=== PATIENT | male | born 1960 | race African-American/Black ===

== ENCOUNTER 2017-09-21 19:56 | Inpatient (IN) | payer OTHER, MEDICAID ==
[~2017-09-21] VITALS: Ht 170.2 cm; Wt 49.4 kg
[2017-09-21 19:47] VITALS: BP 98/62
--- NOTE | 2017-09-21 20:00 | NUR ---
PT BIB RA TO ER BED 5, PT COMING FROM [facility]. PT STARTED ON ANITBIOTICS FOR A UTI AT [facility] TODAY, PARAMEDICS STATE PT BECAME MORE ALTERED. PT HAS A TRACH WITH MECH VENT, RT AT BEDSIDE TO MANAGE VENT. SETTINGS ARE RATE 14, TV - 400, PEEP - 5, FIO2 40%. PT HAS PICC LINE IN THE RIGHT ARM, BLOOD CULT X 2 AND BLOOD SAMPLE OBTAINED AND HANDED OVER TO LAB AT BEDSIDE. TECH AT BEDSIDE TO OBTAIN EKG. MD AT BEDSIDE FOR EVAL. PT IS ALTERED AND NONVERBAL. PT IS TACHY AT 134, RECTAL TEMP OF 100.1, SAT 94%, RESP 21. PT HAS F/C FROM [facility], ORDER TO REMOVE AND PLACE NEW SINGLETON.
--- NOTE | 2017-09-21 20:10 | NUR ---
OLD F/C DISCONTINUED. 16 FR F/C INSERTED USING SCHOOL BUS ATTENDANT, PER MD ORDERS. 600 ML URINE RETURN. URINE HAD ELIZABETH BLOOD AND WAS CLOUDY. URINE SPECIMAN SEND TO LAB.
[2017-09-21] MEDS ORDERED: CEFEPIME 1 GM VIAL ONE (20:29)
[2017-09-21] MEDS ORDERED: IV NS 0.9% 1,000 ML BAG IV ONE (20:30)
--- NOTE | 2017-09-21 20:30 | NUR ---
pt arrived in ER trached with #8 shiley bvm being performed showing no signs of respiratory distress noted. pt placed on previous vent setting that pt is on from facility. ac 14 400 40% +5, vent alarms set, plugged into red outlet and bvm at bedside. moderate amount of thick white secretion suctioned, pt tolerated procedure no adverse reaction noted Addendum: 09/21/17 at 2041 by HILTON KAPLAN RT Amended: Links added.
[2017-09-21 20:32] LABS: BASOPHILS % (AUTO) 0.3 % (0.0-2.0); EOSINOPHILS # (AUTO) 0.2 /CMM (0.0-0.7); EOSINOPHILS % (AUTO) 1.9 % (0.0-6.0); HEMATOCRIT 23 % (39-51); HEMOGLOBIN 7.6 g/dL (13.5-17.5); LYMPHOCYTES # (AUTO) 0.8 /CMM (0.8-4.8); LYMPHOCYTES % (AUTO) 7.6 % (20.0-44.0); MEAN CORPUSCULAR HEMOGLOBIN 29 PG (26.0-33.0); MEAN CORPUSCULAR HGB CONC 33 g/dl (31.0-36.0); MEAN CORPUSCULAR VOLUME 88 fL (80-96); MONOCYTES # (AUTO) 0.7 /CMM (0.1-1.30); MONOCYTES % (AUTO) 7.4 % (2.0-12.0); NEUTROPHILS # (AUTO) 8.2 /CMM (1.8-8.9); NEUTROPHILS % (AUTO) 82.8 % (43.0-81.0); PLATELET COUNT (AUTO) 334 /CMM (150-450); RDW COEFFICIENT OF VARIATION 15.6 (11.5-15.0); WHITE BLOOD COUNT (AUTO) 9.9 K/uL (4.3-11.0)
[2017-09-21 20:36] LABS: INR 1.05 (0.87-1.13); PROTHROMBIN TIME 10.9 SECS (9.5-12.7)
[2017-09-21 20:39] LABS: ALBUMIN 1.9 g/dL (3.4-5.0); BILIRUBIN,DIRECT 0.1 mg/dL (0.0-0.2); BILIRUBIN,TOTAL 0.4 mg/dL (0.2-1.0); CALCIUM, SERUM 9.5 mg/dL (8.5-10.1); CREATININE 2.4 mg/dL (0.6-1.3); POTASSIUM 5.8 mmol/L (3.5-5.1); TOTAL PROTEIN, SERUM 7.1 g/dL (6.4-8.2)
[2017-09-21 20:40] LABS: TROPONIN I 0.078 ng/mL (0.00-0.056)
[2017-09-21] MEDS: CEFEPIME 1 GM in IV D5W 50 ML IV SCH (20:40)
[2017-09-21 20:47] LABS: APPEARANCE,URINE TURBID (CLEAR); BILIRUBIN,URINE NEGATIVE (NEGATIVE); BLOOD, URINE 3+ Ery/uL (NEGATIVE); COLOR,URINE ORANGE (YELLOW); KETONES,URINE NEGATIVE (NEGATIVE); PROTEIN,URINE 4+ mg/dl (NEGATIVE); UGLUCOSE NEGATIVE (NEGATIVE)
[2017-09-21 20:48] LABS: LEUKOCYTE ESTERASE ,URINE 3+ (NEGATIVE); NITRITE, URINE NEGATIVE (NEGATIVE); UROBILINOGEN,URINE 0.2 EU/dL (0.2)
[2017-09-21 20:51] LABS: BACTERIA,URINE Moderate /HPF (None Seen); RBC,URINE 21-50 /HPF (0-2); SQUAMOUS EPITHELIAL CELL,UR Few /HPF (None Seen); WBC,URINE 21-50 /HPF (0-3)
--- NOTE | 2017-09-21 20:53 | NUR ---
XRAY AT BEDSIDE.
[2017-09-21 21:20] LABS: BAND % (MANUAL) 7 % (0.0-5.0); BASOPHILS % (MANUAL) 0 % (0.0-2.0); EOSINOPHILS % (MANUAL) 2 % (0-4); LYMPHOCYTES % (MANUAL) 9 % (16-48); MONOCYTES % (MANUAL) 4 % (0-11.0); NEUTROPHILS % (MANUAL) 78 (42-76)
[2017-09-21] MEDS ORDERED: SODIUM POLYSTYRENE SULFONATE 15 G/60 ML BOTTLE PO ONE (21:30)
[2017-09-21] MEDS ORDERED: FUROSEMIDE 40 MG/4 ML VIAL IV ONE (21:30)
[2017-09-21] MEDS ORDERED: DEXTROSE 50%-WATER 50 ML DISP.SYRIN IV ONE (21:30)
[2017-09-21] MEDS ORDERED: INSULIN REGULAR, HUMAN 100 UNIT/ML 10 ML VIAL IV ONE (21:30)
[2017-09-21] MEDS ORDERED: DEXTROSE 50%-WATER 50 ML DISP.SYRIN ONE (21:57)
[2017-09-21] MEDS ORDERED: SODIUM POLYSTYRENE SULFONATE 15 G/60 ML BOTTLE ONE (21:57)
[2017-09-21] MEDS ORDERED: INSULIN REGULAR, HUMAN 100 UNIT/ML 10 ML VIAL ONE (21:57)
[2017-09-21] MEDS ORDERED: FUROSEMIDE 20 MG/2 ML VIAL ONE (21:57)
--- NOTE | 2017-09-21 22:30 | NUR ---
PT TBA TO TELE BED 311 BED 1, REPORT GIVEN TO KUSH FOR OPAL.
[2017-09-21] MEDS ORDERED: BISA-79 PR (22:48)
[2017-09-21] MEDS ORDERED: HYDR-552 PO (22:48)
[2017-09-21] MEDS ORDERED: FAMO20TA8 GT (22:48)
[2017-09-21] MEDS ORDERED: ASCO500C16 GT (22:48)
[2017-09-21] MEDS ORDERED: ONDA4TAB5 GT (22:48)
[2017-09-21] MEDS ORDERED: METH-406 GT (22:48)
[2017-09-21] MEDS ORDERED: GABA-534 GT (22:48)
[2017-09-21] MEDS ORDERED: LACT10SO PO (22:48)
[2017-09-21] MEDS ORDERED: POTA10CA43 GT (22:48)
[2017-09-21] MEDS ORDERED: MAGN400T6 GT (22:48)
[2017-09-21] MEDS ORDERED: LORA1TAB GT (22:48)
[2017-09-21] MEDS ORDERED: FURO20TA4 GT (22:48)
[2017-09-21] MEDS ORDERED: DOCU50LI GT (22:48)
[2017-09-21] MEDS ORDERED: OXYC5TAB3 GT (22:48)
[2017-09-21] MEDS ORDERED: QUET300T2 GT (22:48)
[2017-09-21] MEDS ORDERED: NOREPINEPHRINE 4 MG/4 ML AMPUL IV ONE (23:29)
[2017-09-21] MEDS ORDERED: Calcium Gluconate 1GM/10ML 4.65 MEQ in IV D5W 50 ML IV ONE (23:30)
[2017-09-21] MEDS: NOREPINEPHRINE 8 MG in IV D5W 500 ML IV PRN (23:37)
--- NOTE | 2017-09-21 23:46 | NUR ---
CALLED TO UPGRADE TO ICU
[2017-09-21] MEDS ORDERED: Calcium Gluconate 0.465 MEQ/ML VIAL IV ONE (23:48)
[2017-09-22] VITALS (68 sets, daily range): BP systolic 77–160; BP diastolic 49–102
[2017-09-22] MEDS ORDERED: LACTULOSE 10 G/15 ML UDC (PYXIS) GT ONE
--- NOTE | 2017-09-22 00:05 | NUR ---
CONTINUING TO MONITOR PT CLOSELY. VSS.
--- NOTE | 2017-09-22 00:14 | NUR ---
ICU 259
[2017-09-22] MEDS ORDERED: MEROPENEM 1 G in IV NS 0.9% 100 ML IV SCH ×2 (00:30→10:00)
[2017-09-22] MEDS ORDERED: IV NS 0.9% 1,000 ML IV PRN (00:30)
--- NOTE | 2017-09-22 00:52 | NUR ---
PT TO ICU 259, REPORT GIVEN TO DEVORAH CARREON FOR OPAL.
--- NOTE | 2017-09-22 01:20 | NUR ---
PT TRANS TO ICU 259 VIA STRETCHER WITH RN AND RT PER ACLS PROTOCOL.
[2017-09-22] MEDS ORDERED: NOREPINEPHRINE 4 MG/4 ML AMPUL IV ONE (01:39)
[2017-09-22] MEDS: NOREPINEPHRINE 8 MG in IV D5W 500 ML IV PRN (01:59)
[2017-09-22] MEDS ORDERED: MEROPENEM 1 G VIAL IV ONE (02:03)
[2017-09-22] MEDS ORDERED: LACTULOSE 10 G/15 ML UDC (PYXIS) ONE (02:05)
[2017-09-22] MEDS: IV NS 0.9% 1,000 ML IV PRN ×3 (02:16→23:30)
[2017-09-22] MEDS ORDERED: oxyCODONE IR immediate release 5 MG CAPSULE ONE (02:31)
[2017-09-22] MEDS: oxyCODONE IR immediate release 5 MG CAPSULE PO PRN ×4 (02:33→22:37)
--- NOTE | 2017-09-22 03:17 | NUR ---
RN:ICU: PT RECEIVED FROM ER FOR SEPSIS SECONDARY TO UTI AND HYPOTENSION. PT RECEIVED WITH COPIOUS AMOUNTS OF BLOODY URINE, ORDERS TO PERFORM CONTINUOUS BLADDER IRRIGATION AND CHANGE CURRENT F/C TO THREE WAY CATHETER. PT ALERT AND ABLE TO MOUTH WORDS. PT ON VENT VIA TRACH, TOLERATING CURRENT SETTINGS. PT ANXIOUS AND RESTLESS, COMPLAINING OF EXTREME GENERALIZED PAIN. PT REPORTS HAVING INCREASED PAIN EVEN FOLLOWING ADMINISTRATION OF OXY IR. PT DOES APPEAR TO BE IN LESS PAIN FOLLOWING PAIN MEDICATION ADMIN. ACCIDENTALLY CLICKED REJECT ON EMAR FOR OVERRIDE STOCK MED FOR OXY IR. MEDICATION GIVEN. PT S/P 1 LITER NS BOLUS AND NOW RECEIVING NS AT 100ML/HR. PT BP REMAINS LABILE AND REQUIRES LOW DOSE OF LEVOPHED GTT ON AND OFF. WILL TITRATE PER PROTOCOL. PT HAS MULTIPLE SKIN ISSUES, SEE WOUND PHOTOS. WOUND CARE CONSULT ORDERED. PT RECEIVED WITH JENNIE PICC LINE WHICH WAS PLACED HELICOPTER PILOT. CENTRAL LINE DRESSING CHANGE PERFORMED PER PROTOCOL. ALL ORDERS CARRIED OUT. ASPIRATION PRECAUTIONS AND FALL PRECAUTIONS IN PLACE. VSS. WILL CONTINUE TO MONITOR CLOSELY.
[2017-09-22] MEDS ORDERED: CEFEPIME 1 GM VIAL ONE (04:55)
[2017-09-22] MEDS: CEFEPIME 1 GM in IV D5W 50 ML IV SCH (04:59)
--- NOTE | 2017-09-22 06:09 | NUR ---
RN:ICU: PT TOLERATING BLADDER IRRIGATION. BP REMAINS BORDERLINE IN 90'S. PT RESTING IN BED COMFORTABLY ON VENT, WITHOUT DISCOMFORT OR DISTRESS. WILL ENDORSE CARE TO ONCOMING SHIFT.
[2017-09-22] MEDS ORDERED: NOREPINEPHRINE 8 MG in IV D5W 500 ML IV PRN (07:00)
--- NOTE | 2017-09-22 07:09 | NUR ---
RN:ICU: ENDORSED CARE TO [place]. SPOKE WITH JONY FROM PHARMACY, MUST REORDER LEVOPHED GTT AND MAXIPINE. PER DR SILVA'S PROGRESS NOTES DNP WOULD LIKE TO CONTINUE THESE MEDICATIONS. ENDORSED TO ONCOMING SHIFT.
--- NOTE | 2017-09-22 07:41 | NUR ---
PT RECEIVED IN ICU TRACHED ON MECHANICAL VENT W/ SETTING PER MD. VENT IN RED OUTLET, AMBUBAG AT BEDSIDE, VENT ALARMS CHECKED AND AUDIBLE. PT SX'ED AND LAVAGED PRN TO MOD AMOUNTS OF THICK PALE YELLOW SECRETIONS. BREATH SOUNDS EQUAL, CLEAR/DIMINISHED, TRACH TUBE CLEAN AND SECURE. PLAN IS TO CONTINUE CARE W/ CURRENT MD ORDERS AND MONITOR FOR CHANGES. Addendum: 09/22/17 at 0811 by ALEXX SEALS RT Amended: Links added.
[2017-09-22] MEDS: VANCOMYCIN 0.75 GM in IV D5W 250 ML IV SCH (07:46)
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
[2017-09-22] MEDS: QUETIAPINE FUMARATE 100 MG TABLET GT SCH ×2 (09:03→16:28)
[2017-09-22] MEDS: DOCUSATE SODIUM LIQ 100 MG/10 ML UDC GT SCH ×2 (09:03→16:27)
[2017-09-22] MEDS: MAGNESIUM OXIDE 400 MG TABLET GT SCH (09:03)
[2017-09-22] MEDS: FUROSEMIDE 20 MG TABLET GT SCH ×2 (09:03→20:17)
[2017-09-22] MEDS: GABAPENTIN 300 MG CAPSULE GT SCH (09:03)
[2017-09-22] MEDS: FAMOTIDINE (20 MG) 20 MG TABLET GT SCH (09:04)
[2017-09-22] MEDS ORDERED: FEE PK DOSING 1 MIN EA MC ONE (10:18)
[2017-09-22] MEDS: MEROPENEM 1 G in IV NS 0.9% 100 ML IV SCH ×2 (12:43→23:35)
[2017-09-22] MEDS ORDERED: CEFEPIME 1 GM in IV D5W 50 ML IV SCH (13:00)
[2017-09-22] MEDS: LORAZEPAM 1 MG TABLET GT PRN (13:10)
[2017-09-22] MEDS: ACETAMINOPHEN 325 MG TABLET PO PRN (13:11)
[2017-09-22 13:20] LABS: IRON, SERUM 17 ug/dl (50-175); TOTAL IRON BINDING CAPACITY 102 ug/dl (250-450)
--- NOTE | 2017-09-22 15:00 | NUR ---
Wound care done. Patient was placed on special air mattress with complete linen change.
--- NOTE | 2017-09-22 18:03 | NUR ---
Patient sleeping after oxycodone.
--- NOTE | 2017-09-22 18:43 | NUR ---
Patient still sleeping. Levophed is still off. NS infusing at 100 ml/hour. Continuous bladder irrigation still on. Urine is pink in color with some small clots noted at times. Vital signs stable.
--- NOTE | 2017-09-22 19:30 | NUR ---
RN INITIAL NOTES RECEIVED PATIENT IN BED, ASLEEP, ALERT AND ORIENTED X 1-2 AT BASELINE, MOUTHS WORDS, RESTLESS AT THIS TIME. BREATHING EVEN AND NONLABORED, TOLERATING VENT SETTINGS WELL. NOTED WITH [address] WAY SINGLETON WITH CONTINUOUS BLADDER IRRIGATION, NOTED WITH CLEAR YELLOW/PINK URINE OUTPUT WITH SEDIMENTS AND OCCASIONAL CLOTS, WILL TITRATE IRRIGATION NEEDED. JENNIE PICC PATENT AND INTACT, FREE FROM ANY S/S OF INFILTRATION OR PHLEBITIS. CALL LIGHT WITHIN REACH, BED IN LOWEST AND LOCKED POSITION. WILL CONTINUE TO CLOSELY MONITOR
[2017-09-22] MEDS ORDERED: CEFEPIME 2 GM in IV D5W 100 ML IV SCH (20:00)
--- NOTE | 2017-09-22 23:15 | NUR ---
RN NOTES PATIENT NOTED TO BE SLEEPING AFTER OXY IR ADMINISTERED. REMAINS WITH CONTINUOUS BLADDER IRRIGATION AT THIS TIME, NOTED WITH YELLOW/PINK OUTPUT. WILL CONTINUE TO CLOSELY MONITOR THE PATIENT
[2017-09-23] VITALS (54 sets, daily range): BP systolic 78–184; BP diastolic 41–120
[2017-09-23] MEDS: ACETAMINOPHEN 325 MG TABLET PO PRN (02:22)
[2017-09-23] MEDS: LORAZEPAM 1 MG TABLET GT PRN ×2 (02:22→08:50)
[2017-09-23 05:00] LABS: EOSINOPHILS # (AUTO) 0.3 /CMM (0.0-0.7); EOSINOPHILS % (AUTO) 2.8 % (0.0-6.0); HEMATOCRIT 22 % (39-51); HEMOGLOBIN 7.4 g/dL (13.5-17.5); LYMPHOCYTES # (AUTO) 0.9 /CMM (0.8-4.8); LYMPHOCYTES % (AUTO) 7.4 % (20.0-44.0); MEAN CORPUSCULAR HEMOGLOBIN 30 PG (26.0-33.0); MEAN CORPUSCULAR HGB CONC 33 g/dl (31.0-36.0); MEAN CORPUSCULAR VOLUME 89 fL (80-96); MONOCYTES # (AUTO) 0.6 /CMM (0.1-1.30); MONOCYTES % (AUTO) 5.5 % (2.0-12.0); NEUTROPHILS # (AUTO) 9.8 /CMM (1.8-8.9); NEUTROPHILS % (AUTO) 84.3 % (43.0-81.0); PLATELET COUNT (AUTO) 237 /CMM (150-450); RDW COEFFICIENT OF VARIATION 16.7 (11.5-15.0); RED BLOOD CELL COUNT(AUTO) 2.48 MIL/uL (4.5-6.0); WHITE BLOOD COUNT (AUTO) 11.6 K/uL (4.3-11.0)
[2017-09-23 05:17] LABS: CREATININE 1.5 mg/dL (0.6-1.3); PHOSPHORUS 5.4 mg/dL (2.5-4.9); POTASSIUM 2.9 mmol/L (3.5-5.1)
[2017-09-23] MEDS ORDERED: POTASSIUM CL. PREMIX PERIPHER. 50 ML ONE (06:02)
[2017-09-23] MEDS: POTASSIUM CL. PREMIX PERIPHER. 50 ML IV SCH ×2 (06:12→07:35)
--- NOTE | 2017-09-23 06:30 | NUR ---
RN NOTES PATIENT'S POTASSIUM LEVEL = 2.9. DR DIVINA SILVA MADE AWARE WITH ORDERS TO REPLACE WITH 20 MEQ KCL IV OVER 2 HOURS. ORDER PLACED, WILL CARRY OUT ALL NEW ORDERS
[2017-09-23] MEDS ORDERED: POTASSIUM CL. PREMIX PERIPHER. 50 ML IV SCH (07:00)
[2017-09-23] MEDS: oxyCODONE IR immediate release 5 MG CAPSULE PO PRN (07:43)
[2017-09-23] MEDS: VANCOMYCIN 0.75 GM in IV D5W 250 ML IV SCH (07:43)
[2017-09-23] MEDS: FUROSEMIDE 20 MG TABLET GT SCH ×2 (08:51→20:59)
[2017-09-23] MEDS: QUETIAPINE FUMARATE 100 MG TABLET GT SCH ×2 (08:51→16:44)
[2017-09-23] MEDS: GABAPENTIN 300 MG CAPSULE GT SCH (08:51)
[2017-09-23] MEDS: MAGNESIUM OXIDE 400 MG TABLET GT SCH (08:51)
[2017-09-23] MEDS: DOCUSATE SODIUM LIQ 100 MG/10 ML UDC GT SCH ×2 (08:51→16:44)
[2017-09-23] MEDS: FAMOTIDINE (20 MG) 20 MG TABLET GT SCH (08:51)
[2017-09-23] MEDS: MEROPENEM 1 G in IV NS 0.9% 100 ML IV SCH ×2 (11:30→23:27)
[2017-09-23] MEDS: IV NS 0.9% 1,000 ML IV PRN (12:36)
[2017-09-23] MEDS: SOD FERRIC GLUC 125 MG in IV NS 0.9% 100 ML IV SCH (13:54)
--- NOTE | 2017-09-23 14:27 | NUR ---
ICU NOTE RECEIVED REPORT FROM DEVORAH DICKEY, PT WAS RECEIVED IN BED AWAKE, A/O 2, ABLE TO MAKE NEEDS KNOWN, PT IS A QUADRIPLEGIC, PT IS ON BEDSIDE MONITOR SHOWING SR @ 95BPM, NO C/O CHEST PAIN OR DISCOMFORT NOTED AT THIS TIME, [facility] AC 14 TV 400 FIO2 30% PEEP 5, SATING WELL, NO S/S OF RESP.DISTRESS OR SOB NOTED AT THIS TIME, PT HAS GTUBE, CLAMPED, FLUSHING WELL, PT HAS NO C/O OF ABDOMINAL PAIN AT THIS TIME, PT HAS F/C ATTACHED TO CONTINUOS BLADDER IRRIGATION, PT HAS JENNIE PICC, C/D/I/PATENT,FLUSHING WELL, RUNNING NS @ 100ML/HR, NO S/S OF INFECTION/ INFILTRATION NOTED AT THIS TIME, PT IS NOTED WITH MULTIPLE SKIN ISSUES, ALL SAFETY MEASURES IN PLACE AT ALL TIMES, CALL LIGHT WITHIN EASY REACH, WILL MONITOR PT CLOSELY FOR CHANGES
--- NOTE | 2017-09-23 14:32 | NUR ---
ICU NOTE RECEIVED CALL FROM LEXIE, URINE CULTURE PROTEUS SPECIES, ENT. STACEY PRATHERO ARNIE, DR. CALVERT NOTIFIED. NO NEW ORDERS AT THIS TIME.
--- NOTE | 2017-09-23 14:49 | NUR ---
ICU NOTE RECEIVED ORDER TO D/C VANCO START ZYVOX 600MG IV Q12H, ORDER WAS ACK AND WILL BE CARRIED OUT
--- NOTE | 2017-09-23 16:00 | NUR ---
ICU NOTE STARTED GTUBE FEEDING, FIBERSOURCE @ 10ML/HR, GOAL IS 50ML/HR, PT IS TOLERATING WELL, NO RESIDUALS AT THIS TIME
--- NOTE | 2017-09-23 16:35 | NUR ---
ICU NOTE LAB CALLED POSITIVE MRSA POSITIVE, NOTIFIED, NEW ORDERS ACK AND CARRIED OUT
[2017-09-23] MEDS: FIBERSOURCE HN 1,000 ML BOTTLE GT PRN (16:45)
[2017-09-23] MEDS: Z GUARD REMEDY 2 OZ OINT TP PRN (16:45)
[2017-09-23] MEDS: LINEZOLID RTU BAG 600 MG in PREMIX 1 EA IV SCH (16:45)
[2017-09-23] MEDS: MUPIROCIN OINT 2% 22 GM TUBE SCH ×2 (17:00→21:00)
--- NOTE | 2017-09-23 17:30 | NUR ---
ICU NOTE PT'S SISTER CALLED, UPDATED HER, ANSWERED ALL QUESTIONS AND CONCERNS
--- NOTE | 2017-09-23 22:54 | NUR ---
RN:ICU: PT RECEIVED IN BED ON VENT VIA TRACH. PT BP 90'S. PT RESTLESS AND BECOMES EASILY AGGITATED. NO APPARENT DISTRESS NOTED. PER DAYSHIFT ORDERS TO D/C CBI. URINE CLEAR YELLOW. INCREASED FEEDING PER PROTOCOL. TURNED Q2H. WILL CONTINUE TO MONITOR CLOSELY.
[2017-09-24] VITALS (24 sets, daily range): BP systolic 104–181; BP diastolic 55–146
[2017-09-24] MEDS ORDERED: VANCOMYCIN 1 GM in IV D5W 250 ML IV SCH (02:00)
[2017-09-24] MEDS: LINEZOLID RTU BAG 600 MG in PREMIX 1 EA IV SCH ×2 (02:34→14:17)
[2017-09-24] MEDS: oxyCODONE IR immediate release 5 MG CAPSULE PO PRN ×3 (02:34→20:30)
[2017-09-24] MEDS: IV NS 0.9% 1,000 ML IV PRN ×2 (02:35→20:29)
[2017-09-24 04:41] LABS: BASOPHILS % (AUTO) 0.2 % (0.0-2.0); EOSINOPHILS # (AUTO) 0.6 /CMM (0.0-0.7); EOSINOPHILS % (AUTO) 5.5 % (0.0-6.0); HEMATOCRIT 23 % (39-51); HEMOGLOBIN 7.7 g/dL (13.5-17.5); LYMPHOCYTES # (AUTO) 0.9 /CMM (0.8-4.8); MEAN CORPUSCULAR HEMOGLOBIN 30 PG (26.0-33.0); MEAN CORPUSCULAR HGB CONC 34 g/dl (31.0-36.0); MEAN CORPUSCULAR VOLUME 89 fL (80-96); MONOCYTES # (AUTO) 0.6 /CMM (0.1-1.30); MONOCYTES % (AUTO) 5.7 % (2.0-12.0); NEUTROPHILS # (AUTO) 8.1 /CMM (1.8-8.9); NEUTROPHILS % (AUTO) 79.6 % (43.0-81.0); PLATELET COUNT (AUTO) 259 /CMM (150-450); RDW COEFFICIENT OF VARIATION 16.6 (11.5-15.0); RED BLOOD CELL COUNT(AUTO) 2.58 MIL/uL (4.5-6.0); WHITE BLOOD COUNT (AUTO) 10.2 K/uL (4.3-11.0)
[2017-09-24 04:58] LABS: CALCIUM, SERUM 8.6 mg/dL (8.5-10.1); CREATININE 1.3 mg/dL (0.6-1.3); MAGNESIUM 1.9 mg/dL (1.8-2.4); PHOSPHORUS 5.7 mg/dL (2.5-4.9); POTASSIUM 2.9 mmol/L (3.5-5.1)
[2017-09-24] MEDS ORDERED: POTASSIUM CL. PREMIX PERIPHER. 50 ML ONE (06:15)
[2017-09-24] MEDS: POTASSIUM CL. PREMIX PERIPHER. 50 ML IV SCH ×4 (06:57→09:58)
--- NOTE | 2017-09-24 07:00 | NUR ---
RN INITIAL NOTES RECEIVED PT AWAKE, A/OX1. ON [facility] VENT WITH FF SETTINGS:AC14, TV400, FIO2 30%, PEEP+5. TRACH IN PLACE. NO RESPIRATORY DISTRESS NOTED. NO SOB NOTED. DENIES ANY PAIN AT THIS TIME. HOB ELEVATED. JENNIE PICC IN PLACE. NS AT 100ML/HR INFUSING. GT IN PLACE. TOLERATING GTF WELL. NO RESIDUAL NOTED. FC IN PLACE. NO HEMATURIA NOTED. BLE ELEVATED. PT COMFORTABLE. WILL MONITOR.
[2017-09-24] MEDS: MAGNESIUM OXIDE 400 MG TABLET GT SCH (08:05)
[2017-09-24] MEDS: FUROSEMIDE 20 MG TABLET GT SCH ×2 (08:05→20:30)
[2017-09-24] MEDS: DOCUSATE SODIUM LIQ 100 MG/10 ML UDC GT SCH ×2 (08:05→16:58)
[2017-09-24] MEDS: GABAPENTIN 300 MG CAPSULE GT SCH (08:05)
[2017-09-24] MEDS: FAMOTIDINE (20 MG) 20 MG TABLET GT SCH (08:05)
[2017-09-24] MEDS: QUETIAPINE FUMARATE 100 MG TABLET GT SCH ×2 (08:05→16:58)
[2017-09-24] MEDS: MUPIROCIN OINT 2% 22 GM TUBE SCH ×2 (08:16→20:32)
--- NOTE | 2017-09-24 09:15 | NUR ---
RN NOTES SEEN AND EXAMINED BY DR. NEHAL CHRISTIE. AWARE OF CURRENT LAB VALUES: WBC 10.2, HGB 7.7, HCT 23, PLATELET 259. SODIUM 141, POTASSIUM 2.9, REPLACING WITH KCL 40MEQ TOTAL. MG 1.9, PHOS 5.7. SBP ON 110S, HR 100S. PER MD, PT OK TO BE DOWNGRADED. WILL MONITOR.
--- NOTE | 2017-09-24 10:40 | NUR ---
RN NOTES SEEN AND EXAMINED BY ROMY FOR WOUND CONSULT. SKIN ISSUES ASSESSED WITH TX ORDERS NOTED AND CARRIED OUT. PT ON KCI. WILL REPOSITION Q2. WILL KEEP BLE ELEVATED.
--- NOTE | 2017-09-24 10:40 | NUR ---
WOUND CARE CONSULT PATIENT SEEN AND SKIN INTEGRITY ASSESSMENT DONE. PLEASE SEE BOILER CONTROL TECHNICIAN ASSESSMENT IN PCS FOR TODAY ALONG WITH ALL RECOMMENDATIONS. ALL TREATMENT PLANS DISCUSSED WITH MD AND MD IN AGREEMENT. RECOMMEND SURGICAL CONSULT FOR POSSIBLE DEBRIDEMENT PATIENT CONDITION PERMITS. PATIENT WITH CURRENT LOTUS AT 12, PATIENT ON 1ST STEP LOW AIRLOSS MATTRESS FOR TREATMENT. RECOMMEND CONTINUE TURNING SCHED Q 2 HOURS PATIENT CONDITION PERMITS, CONTINUE BILATERAL HEEL FLOATING. RECOMMEND CONTINUED USE OF Z GUARD FOR SKIN AND MOISTURE MANAGEMENT. ALL SKIN MANAGEMENT DISCUSSED WITH NURSING AT THE BEDSIDE. ALL SKIN MANAGEMENT AND PREVENTION MEASURES ARE NOTED TO BE IN PLACE AT THIS TIME. MD IN AGREEMENT WITH PLAN OF CARE. Addendum: 09/24/17 at 1045 by ROMY LOYA WNDNU Amended: Links added.
[2017-09-24] MEDS: NEOMY SULF/BACITRAC ZN/POLY 15 GM TUBE TP SCH (11:00)
[2017-09-24] MEDS: HYDROGEL DRESSING 90 GM TUBE TP SCH (11:00)
[2017-09-24] MEDS ORDERED: HYDROGEL DRESSING 90 GM TUBE TP PRN (11:00)
--- NOTE | 2017-09-24 11:20 | NUR ---
RN NOTES PT TRANSFERRED TO ROOM 317. PT AWAKE, A/OX1. ON VENT, TRACH IN PLACE. AIRWAY PATENT. NO SOB NOTED. HOB ELEVATED. PT DENIES ANY PAIN. GT IN PLACE. ON GTF. PICC IN ON JENNIE. IVF INFUSING. FC IN PLACE. NO HEMATURIA NOTED. BLE ELEVATED. PT PLACED COMFORTABLY IN ROOM. BEDSIDE REPORT GIVEN TO AUNDREA FAIRCHILD.
--- NOTE | 2017-09-24 11:30 | NUR ---
RN OPENING NOTES RECEIVED PATIENT AWAKE,RESPONSIVE, MOUTH WORDS, ON VENT, TRACH IN PLACE. AIRWAY PATENT. NO ACUTE DISTRESS, NO SOB NOTED. NO S/S OF PAIN OR DISCOMFORT. HOB ELEVATED, GT IN PLACE, ON GTF. PICC LINE ON JENNIE, IVF INFUSING. FC IN PLACE. NO HEMATURIA NOTED. BLE ELEVATED. KEPT PATIENT SAFE AND COMFORTABLE. BED IN LOCKED, LOW POSITION, SIDERAILS UPX2, CALL LIGHT IN REACH. WILL CONTINUE TO MONITOR ACCORDINGLY.
[2017-09-24] MEDS: MEROPENEM 1 G in IV NS 0.9% 100 ML IV SCH ×2 (12:33→23:20)
--- NOTE | 2017-09-24 13:00 | NUR ---
RN NOTES DR PRIEST ON BEDSIDE. WILL DO EGD TOMORROW, NPO AFTER MIDNIGHT TODAY.
[2017-09-24] MEDS: SOD FERRIC GLUC 125 MG in IV NS 0.9% 100 ML IV SCH (16:18)
--- NOTE | 2017-09-24 19:26 | NUR ---
RN CLOSING NOTES PATIENT IN BED RESTING, RESPONSIVE. NO ACUTE DISTRESS, NO SOB NOTED. IV SITE INTACT AND PATENT. GTUBE IN PLACE. SINGLETON IN PLACE, CLEAR YELLOW URINE DRAINING. ALL NEEDS ATTENDED AND PROVIDED. KEPT PATIENT COMFORTABLE. TURN AND REPOSITION EVERY 2 HRS. SUCTIONED TRACH NEEDED, TOLERATED WELL. BED IN LOW, LOCKED POSITION, HOB ELEVATED, SIDERAILS UP X2, CALL LIGHT IN REACH. ENDORSED TO NIGHT RN FOR OPAL.
[2017-09-24] MEDS: ZOLPIDEM TARTRATE 5 MG TABLET GT PRN (23:21)
[2017-09-25] VITALS (21 sets, daily range): BP systolic 117–176; BP diastolic 86–117
[2017-09-25] MEDS: LORAZEPAM 1 MG TABLET GT PRN ×2 (01:19→09:16)
[2017-09-25] MEDS: LINEZOLID RTU BAG 600 MG in PREMIX 1 EA IV SCH (02:47)
[2017-09-25] MEDS ORDERED: METOPROLOL TARTRATE INJ 5 MG/5 ML AMPUL IVP ONE (04:30)
--- NOTE | 2017-09-25 06:00 | NUR ---
RN NOTES No significant change in condition, no change in mental status, patient is alert and bale to make needs known by mouthing words. No acute respiratory distress noted. With episodes of elevated BP, Alyse Francisco made aware and ordered Metoprolol IVP to be given slowly, order noted and carried out. Monitored BP and HR closely. Rechecked VS, BP and HR within normal limits. NO SOB noted. Patient c/o pain on the back during shift, pain meds given as ordered and re-assessed pain level. Gtube feeding held at 0000. Pt kept NPO. Informed patient of the procedure today. Verbalized understanding. Consent signed via telephone consent. pre-op checklist done. All due meds given as ordered, Gtube flushed as ordered, no gastric residual noted. All needs attended. Wound dressing dry and intact, no bleeding noted. Good perineal care rendered. Turned and repositioned as scheduled. All needs attended. Will continue to monitor.
[2017-09-25 07:32] LABS: BASOPHILS % (AUTO) 0.2 % (0.0-2.0); EOSINOPHILS # (AUTO) 0.7 /CMM (0.0-0.7); EOSINOPHILS % (AUTO) 8.2 % (0.0-6.0); HEMATOCRIT 24 % (39-51); HEMOGLOBIN 7.9 g/dL (13.5-17.5); LYMPHOCYTES # (AUTO) 1.3 /CMM (0.8-4.8); LYMPHOCYTES % (AUTO) 14.7 % (20.0-44.0); MEAN CORPUSCULAR HEMOGLOBIN 30 PG (26.0-33.0); MEAN CORPUSCULAR HGB CONC 33 g/dl (31.0-36.0); MEAN CORPUSCULAR VOLUME 89 fL (80-96); MONOCYTES # (AUTO) 0.5 /CMM (0.1-1.30); MONOCYTES % (AUTO) 6.1 % (2.0-12.0); NEUTROPHILS # (AUTO) 6.1 /CMM (1.8-8.9); NEUTROPHILS % (AUTO) 70.8 % (43.0-81.0); PLATELET COUNT (AUTO) 242 /CMM (150-450); RDW COEFFICIENT OF VARIATION 16.5 (11.5-15.0); RED BLOOD CELL COUNT(AUTO) 2.66 MIL/uL (4.5-6.0); WHITE BLOOD COUNT (AUTO) 8.6 K/uL (4.3-11.0)
[2017-09-25 07:46] LABS: CALCIUM, SERUM 8.5 mg/dL (8.5-10.1); CREATININE 0.8 mg/dL (0.6-1.3); POTASSIUM 3.1 mmol/L (3.5-5.1)
--- NOTE | 2017-09-25 08:00 | NUR ---
SHEET METAL WORKER SUPERVISOR NOTES PATIENT IN BED WITH OR PREPARING FOR ENDOSCOPY AT BEDSIDE. PATIENT IN STABLE CONDITION. PICC LINE ON RIGHT UPPER ARM. SINGLETON INTACT PATENT. PATIENT VENT DEPENDENT. VENT SETTINGS NOTED. WILL CONTINUE TO MONITOR.
[2017-09-25] MEDS: QUETIAPINE FUMARATE 100 MG TABLET GT SCH ×2 (09:16→17:05)
[2017-09-25] MEDS: GABAPENTIN 300 MG CAPSULE GT SCH (09:16)
[2017-09-25] MEDS: DOCUSATE SODIUM LIQ 100 MG/10 ML UDC GT SCH ×2 (09:16→17:04)
[2017-09-25] MEDS: MAGNESIUM OXIDE 400 MG TABLET GT SCH (09:17)
[2017-09-25] MEDS: FUROSEMIDE 20 MG TABLET GT SCH ×2 (09:17→22:09)
[2017-09-25] MEDS: FAMOTIDINE (20 MG) 20 MG TABLET GT SCH (09:17)
[2017-09-25] MEDS: MUPIROCIN OINT 2% 22 GM TUBE SCH ×2 (09:18→22:09)
[2017-09-25] MEDS: NEOMY SULF/BACITRAC ZN/POLY 15 GM TUBE TP SCH (09:18)
[2017-09-25] MEDS: HYDROGEL DRESSING 90 GM TUBE TP SCH (09:19)
--- NOTE | 2017-09-25 09:30 | NUR ---
PARK ATTENDANT NOTES PATIENT S/P ENDOSCOPE AT BEDSIDE IN STABLE CONDITION WILL CONTINUE TO MONITOR.
[2017-09-25] MEDS ORDERED: PEG 3350/NA SULF,BICARB,CL/KCL 4,000 ML BOTTLE PO ONE (11:00)
[2017-09-25] MEDS: CLONIDINE HCL 0.1 MG TABLET PO PRN (11:09)
[2017-09-25] MEDS: MEROPENEM 1 G in IV NS 0.9% 100 ML IV SCH ×2 (11:10→23:14)
[2017-09-25] MEDS: IV NS 0.9% 1,000 ML IV PRN ×2 (11:10→23:12)
--- NOTE | 2017-09-25 11:30 | NUR ---
OFFSET PROOF PRESS OPERATOR NOTES PATIENT NOTED WITH BP OR 169/110 DR. MARY AT BEDSIDE INFORMED OR PATIENTS BLOOD PRESSURE OBTAINED ORDERS FOR CLONIDIN 0.1MG EVERY 6 HOURS NEEDED FOR BP OVER 160. NOTED AND CARRIED OUT. WILL RECHECK AFTER 30 MIN.
--- NOTE | 2017-09-25 12:00 | NUR ---
CHEESE GRADER NOTES BLOOD PRESSURE CHECKED NOTED 156/96 PULSE OF 71, RESPIRATION OF 18 AND O2 SAT. AT 100%. WILL CONTINUE TO MONITOR.
[2017-09-25] MEDS: LINEZOLID 600 MG TABLET PO SCH ×2 (13:06→23:14)
[2017-09-25] MEDS: POTASSIUM CHLORIDE 20 MEQ TAB.PRT.SR PO SCH ×2 (13:06→15:03)
[2017-09-25] MEDS: SOD FERRIC GLUC 125 MG in IV NS 0.9% 100 ML IV SCH (15:08)
[2017-09-25] MEDS: oxyCODONE IR immediate release 5 MG CAPSULE PO PRN (15:24)
--- NOTE | 2017-09-25 16:00 | NUR ---
telephone clerk notes noted patients vs as follows 165/117 pulse 83 respiration 16 temp 98.9 and pulse ox 100 DR. Freeman made aware orderers to administer metoprolol noted and carried out.
[2017-09-25] MEDS: METOPROLOL TARTRATE 25 MG TABLET PO SCH (17:07)
--- NOTE | 2017-09-25 18:00 | NUR ---
RN NOTES MG CITRATE NOT GIVEN AT THIS TIME, TO BE GIVEN TOMORROW AT 5AM IF PT BM IS NOT CLEAR YET FOR COLONOSCOPY. WILL CONTINUE TO MONITOR PT.
--- NOTE | 2017-09-25 18:01 | NUR ---
DIRECTOR PUBLIC SERVICE NOTES BP RECHECKED 138/96 PULSE 78 PATIENT IN NO DISTRESS WILL CONTINUE TO MONITOR.
[2017-09-25] MEDS ORDERED: MAGNESIUM CITRATE 296 ML BOTTLE PO ONE (19:00)
--- NOTE | 2017-09-25 19:01 | NUR ---
FLUE BLOWER NOTES PATIENT IN BED RESTING NO SOB OR ACUTE DISTRESS NOTED. PATIENTS DISCHARGE HELD DUE TO PATIENT HAVING COLONOSCOPY TOMORROW AM. DR. CALVERT MAD AWARE ORDERS TO HOLD DISCHARGE UNTIL TOMORROW. ALL DUE MEDICATIONS ADMINISTERED. ALL NEEDS MET. PATIENTS SINGLETON INTACT PATENT. PICC LINE INTACT PATENT. WILL ENDORSE TO PM SHIFT OPAL.
--- NOTE | 2017-09-25 19:15 | NUR ---
RN NOTES RECEIVED PT AWAKE, ON MECHANICAL VENT AND TOLERATED WELL. PT IS ALERT AND ORIENTED X2, MOUTHS WORDS. TELEMONITOR READS SINUS RHYTHM WITH HEART RATE AT 67. RIGHT UPPER ARM PICC LINE INTACT WITH ONGOING IVF INFUSING WELL. SINGLETON CATH INTACT WITH CLEAR YELLOW URINE OUTPUT NOTED. DISCUSSED PALN OF CARE WITH PT. WILL CONTINUE TO GIVE GOLYTELY UNTIL BM BECOMES CLEAR FOR SCHEDULED COLONOSCOPY IN AM. KEPT COMFORTABLE AND ATTENDED. WILL CONTINUE TO MONITOR PT.
[2017-09-25] MEDS ORDERED: MAGNESIUM CITRATE 296 ML BOTTLE PO PRN (19:30)
[2017-09-26] VITALS: BP 147/103
[2017-09-26] MEDS: oxyCODONE IR immediate release 5 MG CAPSULE PO PRN (00:16)
[2017-09-26 04:00] VITALS: BP 143/100
[2017-09-26 07:14] LABS: BASOPHILS % (AUTO) 0.2 % (0.0-2.0); EOSINOPHILS # (AUTO) 0.6 /CMM (0.0-0.7); EOSINOPHILS % (AUTO) 6.9 % (0.0-6.0); HEMATOCRIT 26 % (39-51); HEMOGLOBIN 8.6 g/dL (13.5-17.5); LYMPHOCYTES # (AUTO) 1.1 /CMM (0.8-4.8); MEAN CORPUSCULAR HEMOGLOBIN 30 PG (26.0-33.0); MEAN CORPUSCULAR HGB CONC 33 g/dl (31.0-36.0); MEAN CORPUSCULAR VOLUME 89 fL (80-96); MONOCYTES # (AUTO) 0.4 /CMM (0.1-1.30); MONOCYTES % (AUTO) 4.8 % (2.0-12.0); NEUTROPHILS % (AUTO) 74.1 % (43.0-81.0); PLATELET COUNT (AUTO) 213 /CMM (150-450); RDW COEFFICIENT OF VARIATION 16.6 (11.5-15.0); WHITE BLOOD COUNT (AUTO) 8.1 K/uL (4.3-11.0)
--- NOTE | 2017-09-26 07:25 | NUR ---
RN NOTES PT AWAKE, ALERT AND MOUTH WORDS. VITAL SIGNS STALE, NO EPISODE OF NAUSEA AND VOMITING. PAIN CONTROLLED. TELEMONITOR READS SINUS RHYTHM AT 68. KEPT NPO. PT PREPARED FOR SCHEDULED COLONOSCOPY TODAY. ALL NEEDS ATTENDED. TURNED AND REPOSITIONED Q2H. KEPT CLEAN AND DRY. WOUND CARE DONE. ENDORSED TO MORNING RN FOR CONTINUITY OF CARE.
[2017-09-26 07:32] LABS: CALCIUM, SERUM 8.4 mg/dL (8.5-10.1); CREATININE 0.6 mg/dL (0.6-1.3); POTASSIUM 3.6 mmol/L (3.5-5.1)
--- NOTE | 2017-09-26 07:42 | NUR ---
TELE/RN OPENING NOTE PATIENT IN BED IN STABLE CONDITION. A/O X 2. NON VERBAL, MOUTH WORDS AND FACIAL GESTURES. ON TRACH AND VENT DEPENDENT TOLERATING WELL. NO SIGNS OF ACUTE DISTRESS. NO COMPLAIN OF PAIN OR DISCOMFORT. ON GTUBE FEEDING TOLERATING WELL. HOB ELEVATED FOR ASPIRATION PRECAUTION. ALL NEEDS ATTENDED TO. CALL LIGHT WITHIN REACH. WILL CONTINUE TO MONITOR TO ENSURE SAFETY.
[2017-09-26 08:00] VITALS: BP 153/93
[2017-09-26] MEDS: MAGNESIUM OXIDE 400 MG TABLET GT SCH (09:00)
[2017-09-26] MEDS: FAMOTIDINE (20 MG) 20 MG TABLET GT SCH (09:00)
[2017-09-26] MEDS: METOPROLOL TARTRATE 25 MG TABLET PO SCH ×2 (09:00→21:38)
[2017-09-26] MEDS: QUETIAPINE FUMARATE 100 MG TABLET GT SCH ×2 (09:00→17:47)
[2017-09-26] MEDS: GABAPENTIN 300 MG CAPSULE GT SCH (09:00)
[2017-09-26] MEDS: DOCUSATE SODIUM LIQ 100 MG/10 ML UDC GT SCH ×2 (09:00→17:47)
[2017-09-26] MEDS: FUROSEMIDE 20 MG TABLET GT SCH ×2 (09:00→21:38)
[2017-09-26] MEDS: HYDROGEL DRESSING 90 GM TUBE TP SCH (09:17)
[2017-09-26] MEDS: NEOMY SULF/BACITRAC ZN/POLY 15 GM TUBE TP SCH (09:17)
[2017-09-26] MEDS: MUPIROCIN OINT 2% 22 GM TUBE SCH ×2 (09:17→21:39)
--- NOTE | 2017-09-26 11:30 | NUR ---
TELE/RN S/P COLONOSCOPY PATIENT S/P COLONOSCOPY. TOLERATED WELL. PER DR PRIEST RESUME ALL PRE OP ORDER, RESUME PREV MEDS, G TUBE FEEDING, AND ASPIRATION PRECAUTIONS. ALL ORDERS NOTED AND CARRIED OUT
[2017-09-26] MEDS: FIBERSOURCE HN 1,000 ML BOTTLE GT PRN (11:45)
[2017-09-26] MEDS: MEROPENEM 1 G in IV NS 0.9% 100 ML IV SCH (11:45)
[2017-09-26] MEDS: LINEZOLID 600 MG TABLET PO SCH (11:45)
[2017-09-26] MEDS: SOD FERRIC GLUC 125 MG in IV NS 0.9% 100 ML IV SCH (14:59)
[2017-09-26 16:00] VITALS: BP 122/76
--- NOTE | 2017-09-26 18:17 | NUR ---
TELE/RN CLOSING NOTE PATIENT IN BED IN STABLE CONDITION. A/O X 2. NON VERBAL, FACIAL GESTURES AND MOUTH WORDS. NO SIGNS OF ACUT DISTRESS. NO COMPLAIN OF PAIN OR DISCOMFORT. ON TRACH AND VENT DEPENDENT TOLERATING WELL. HOB ELEVATED FOR ASPIRATION PRECAUTION. ON GTUBE FEEDING FIBERSOURCE 50ML/HR. TOLERATED WELL. ALL NEEDS ATTENDED TO. CALL LIGHT WITHIN REACH. WILL ENDORSE TO NEXT SHIFT FOR CONTINUITY OF CARE.
--- NOTE | 2017-09-26 19:30 | NUR ---
TELE/RN OPENING NOTE PATIENT IN BED IN STABLE CONDITION. A/O X 2. NON VERBAL, MOUTH WORDS AND FACIAL GESTURES.TRACH AND VENT DEPENDENT TOLERATING WELL. NO SIGNS OF ACUTE DISTRESS. NO COMPLAIN OF PAIN OR DISCOMFORT. ON GTUBE FEEDING TOLERATING WELL. HOB ELEVATED FOR ASPIRATION PRECAUTION. ALL NEEDS ATTENDED TO. CALL LIGHT WITHIN REACH. WILL CONTINUE TO MONITOR TO ENSURE SAFETY.
[2017-09-26 20:00] VITALS: BP 118/61
[2017-09-26 22:00] VITALS: BP 118/61
[2017-09-27] VITALS (7 sets, daily range): BP systolic 112–168; BP diastolic 62–104
[2017-09-27] MEDS: MEROPENEM 1 G in IV NS 0.9% 100 ML IV SCH ×2 (00:44→12:51)
[2017-09-27] MEDS: LINEZOLID 600 MG TABLET PO SCH ×2 (00:44→12:51)
[2017-09-27] MEDS: ZOLPIDEM TARTRATE 5 MG TABLET GT PRN ×2 (00:45→21:33)
[2017-09-27] MEDS: IV NS 0.9% 1,000 ML IV PRN (05:00)
--- NOTE | 2017-09-27 06:53 | NUR ---
wireless telegrapher note Patient stable. No distress noted. No s/s of pain or discomfort. Vent settings in place as ordered. Tele monitor on. Reading normal sinus rhythm 78. foely catheter intact, with ottoniel color urine draining by gravity to collection bag. Changed dressings to wounds. Kept clena, dry and comfortable. PICC line patent, with no s/s of infection noted. All needs met and attended to. Will endorse to day shift for max.
--- NOTE | 2017-09-27 07:05 | NUR ---
CARVER HAND OPENING NOTES RECEIVED PT FROM NIGHTSMSFT NURSE IN STABLE CONDITION. PT IS A/O X1-2. NO SOB OR SIGNS OF DISTRESS NOTED. PT IS VENT DEPENDENT. VENTILATOR SETTINGS CHECKED FOR ACCURACY AND ARE ORDERED. PT IS TOLERATING VENT WELL AND SATING @ 100%. PT IS SR ON THE TELE MONITOR WITH A HR OF 73. SINGLETON CATHETER NOTED TO BE DRAINING YELLOW CLOUDY URINE. CATHETER SITE IS CLEAN, DRY AND INTACT. GTUBE NOTED. PT IS CURRENTLY RECEIVED FIBERCOURCE @ 50ML/HR. PT IS TOLERATING FEEDING WELL. NO RESIDUALS ASPIRATED AT THIS TIME. PLACEMENT VERIFIED VIA AUSCULTATION. PICC LINE NOTED TO RIGHT UPPER ARM. NO REDNESS OR SIGNS OF INFILTRATION NOTED. DRESSING IS DRY AND INTACT. PICC IS PATENT. BED IN LOW LOCKED POSITION, SIDE RAILS UP X3, CALL LIGHT WITHIN REACH. CONTACT ISOLATION PRECAUTIONS MAINTAINED. WILL CONTINUE TO MONITOR
[2017-09-27 07:59] LABS: CALCIUM, SERUM 8.6 mg/dL (8.5-10.1); CREATININE 0.7 mg/dL (0.6-1.3); POTASSIUM 3.5 mmol/L (3.5-5.1)
[2017-09-27] MEDS: GABAPENTIN 300 MG CAPSULE GT SCH (08:48)
[2017-09-27] MEDS: HYDROGEL DRESSING 90 GM TUBE TP SCH (08:48)
[2017-09-27] MEDS: DOCUSATE SODIUM LIQ 100 MG/10 ML UDC GT SCH ×2 (08:48→18:18)
[2017-09-27] MEDS: FUROSEMIDE 20 MG TABLET GT SCH ×2 (08:48→21:33)
[2017-09-27] MEDS: QUETIAPINE FUMARATE 100 MG TABLET GT SCH ×2 (08:48→18:18)
[2017-09-27] MEDS: MAGNESIUM OXIDE 400 MG TABLET GT SCH (08:49)
[2017-09-27] MEDS: FAMOTIDINE (20 MG) 20 MG TABLET GT SCH (08:49)
[2017-09-27] MEDS: METOPROLOL TARTRATE 25 MG TABLET PO SCH ×2 (08:50→21:33)
[2017-09-27] MEDS: NEOMY SULF/BACITRAC ZN/POLY 15 GM TUBE TP SCH (08:50)
[2017-09-27] MEDS: MUPIROCIN OINT 2% 22 GM TUBE SCH ×2 (08:50→21:34)
[2017-09-27] MEDS: FIBERSOURCE HN 1,000 ML BOTTLE GT PRN (12:51)
[2017-09-27] MEDS: SOD FERRIC GLUC 125 MG in IV NS 0.9% 100 ML IV SCH (15:28)
--- NOTE | 2017-09-27 18:25 | NUR ---
BILINGUAL BRANCH MANAGER CLOSING NOTES PT REMAINS IN STABLE CONDITION. NO SIGNS OF DISTRESS NOTED. ALL NEEDS WERE MET DURING SHIFT AND ORDERS CARRIED OUT ACCORDINGLY. ALL DUE MEDS GIVEN.HE REMAINED SR ALL THROUGHOUT SHIFT. SKIN AND METICULOUS WOUND CARE PROVIDED. PT WAS REPOSITIONED AND TURNED Q 2HR PER PROTOCOL. SINGLETON CATHETER REMAINS CLEAN, DRY, AND INTACT. CATHETER CARE RENDERED. GTUBE REMAINS IN PLACE AND PATENT. FEEDING CONTINUES TO INFUSE ORDERED. SAFETY AND ISOLATION PRECAUTIONS REMAIN IN PLACE. WILL ENDORSE TO NIGHTSHIFT NURSE FOR OPAL .
--- NOTE | 2017-09-27 19:30 | NUR ---
SHOW CARD LETTERER OPENING NOTES RECEIVED PT IN STABLE CONDITION. PT IS A/O X1-2. NO SOB OR SIGNS OF DISTRESS NOTED. PT IS VENT DEPENDENT. VENTILATOR SETTINGS CHECKED FOR ACCURACY AND ARE ORDERED. PT IS TOLERATING VENT WELL AND SATING @ 100%. PT IS SR ON THE TELE MONITOR WITH A HR OF 73. SINGLETON CATHETER NOTED TO BE DRAINING YELLOW CLOUDY URINE. CATHETER SITE IS CLEAN, DRY AND INTACT. GTUBE NOTED. PT IS CURRENTLY RECEIVED FIBERCOURCE @ 50ML/HR. PT IS TOLERATING FEEDING WELL. NO RESIDUALS ASPIRATED AT THIS TIME. PLACEMENT VERIFIED VIA AUSCULTATION. PICC LINE NOTED TO RIGHT UPPER ARM. NO REDNESS OR SIGNS OF INFILTRATION NOTED. DRESSING IS DRY AND INTACT. PICC IS PATENT. BED IN LOW LOCKED POSITION, SIDE RAILS UP X3, CALL LIGHT WITHIN REACH. CONTACT ISOLATION PRECAUTIONS MAINTAINED. WILL CONTINUE TO MONITOR
[2017-09-28] VITALS (7 sets, daily range): BP systolic 121–146; BP diastolic 88–98
[2017-09-28] MEDS: MEROPENEM 1 G in IV NS 0.9% 100 ML IV SCH ×3 (00:59→21:01)
[2017-09-28] MEDS: LINEZOLID 600 MG TABLET PO SCH ×2 (00:59→11:33)
[2017-09-28] MEDS: ZOLPIDEM TARTRATE 5 MG TABLET GT PRN (01:00)
--- NOTE | 2017-09-28 06:07 | NUR ---
EMPLOYEE SERVICE OFFICER NOTE PATIENT STABLE. VENT IN PLACE WITH SETTINGS OPERATING ORDERED. NO RESPIRATORY DISTRESS OR SOB. NO S/S OF PAIN NOTED. PICC LINE INTACT, WITH NO S/S OF INFECTION NOTED. FLUIDS RUNNING ORDERED. GTUBE INTACT WITH NO RESIDUAL NOTED. FEEDING RUNNING ORDERED. SINGLETON CATHETER IN PLACE, AND SECURED WITH TAPE TO THIGH. CLEAR, YELLOW URINE COLLECTING IN BAG BY GRAVITY. KEPT CLEAN, DRY AND COMFORTABLE. ALL NEEDS MET AND ATTENDED TO. WILL ENDORSE TO DAY SHIFT FOR OPAL.
[2017-09-28 06:39] LABS: CALCIUM, SERUM 8.4 mg/dL (8.5-10.1); CREATININE 0.7 mg/dL (0.6-1.3); POTASSIUM 3.4 mmol/L (3.5-5.1)
--- NOTE | 2017-09-28 07:20 | NUR ---
RN NOTES PT IS RESTING IN BED COMFORTABLY. PT CONNECTED TO VENT, ALL SETTINGS ARE ACCURATE, NO SIGNS OF DISTRESS NOTED. PICC LINE ON JENNIE INTACT AND RUNNING NS @ 75ML/HR. SINGLETON IS INTACT AND DRAINING. G-TUBE INTACT AND RUNNING FIBERSOURCE @ 50ML/HR. SAFETY MEASURES ARE IN PLACE, WILL CONTINUE TO MONITOR.
[2017-09-28] MEDS: FAMOTIDINE (20 MG) 20 MG TABLET GT SCH (08:50)
[2017-09-28] MEDS: QUETIAPINE FUMARATE 100 MG TABLET GT SCH ×2 (08:50→16:22)
[2017-09-28] MEDS: FUROSEMIDE 20 MG TABLET GT SCH ×2 (08:50→21:00)
[2017-09-28] MEDS: MAGNESIUM OXIDE 400 MG TABLET GT SCH (08:50)
[2017-09-28] MEDS: NEOMY SULF/BACITRAC ZN/POLY 15 GM TUBE TP SCH (08:51)
[2017-09-28] MEDS: METOPROLOL TARTRATE 25 MG TABLET PO SCH ×2 (08:51→21:01)
[2017-09-28] MEDS: DOCUSATE SODIUM LIQ 100 MG/10 ML UDC GT SCH ×2 (08:51→16:22)
[2017-09-28] MEDS: MUPIROCIN OINT 2% 22 GM TUBE SCH ×2 (08:51→21:02)
[2017-09-28] MEDS: HYDROGEL DRESSING 90 GM TUBE TP SCH (08:52)
[2017-09-28] MEDS: GABAPENTIN 300 MG CAPSULE GT SCH (08:59)
[2017-09-28] MEDS ORDERED: POTASSIUM CHLORIDE 20 MEQ POWDER PACKET GT SCH (11:00)
[2017-09-28] MEDS: IV NS 0.9% 1,000 ML IV PRN (17:20)
[2017-09-28] MEDS: FIBERSOURCE HN 1,000 ML BOTTLE GT PRN (17:20)
--- NOTE | 2017-09-28 18:37 | NUR ---
RN NOTES PT IS SITTING UP IN BED, RESTING COMFORTABLY. PT CONNECTED TO VENT, SETTINGS ARE ACCURATE, O2 SAT IS 100%. JENNIE PICC LINE INTACT AND RUNNING NS @ 75ML/HR. G-TUBE INTACT AND RUNNING FIBERSOURCE @ 50ML/HR. SINGLETON CATHETER IN PLACE, OUTPUT WAS 2200ML. TRACH CARE WAS PROVIDED AND WOUND CARE PROVIDED FOR SACRAL WOUND. ALL MEDS WERE GIVEN ORDERED. SAFETY MEASURES ARE IN PLACE, CALL LIGHT IS IN REACH. WILL ENDORSE TO TECHNICIAN AUTOMATED EQUIPMENT RN FOR CONTINUITY OF CARE.
--- NOTE | 2017-09-28 19:59 | NUR ---
TELE/RN OPENING NOTES PATIENT IN BED, HOB ELEVATED, AWAKE, ALERTX2. CAN RESPOND BY MAKING SOUND IN VOICE, DENIES PAIN, NO GUARDING, NO GRIMACE OBSERVED, REQUIRE FREQUENT REPOSITION AND TURNING WITH SACRAL WOUNDS, ABDOMINAL INCISION. ON VENT WITH SETTING ORDERED, TELE READING SR 75, SINGLETON CATHETER CLEAR URINE, GTUBE RUNNING MONITORING FOR ANY RESIDUALS, ON CONTACT ISOLATION DUE TO VRE OF URINE AND MRSA. RECEIVE REPORT FROM AM RN FOR OPAL. WILL CONTINUE TO MONITOR AND PROVIDE CARE.
[2017-09-29] VITALS (7 sets, daily range): BP systolic 138–158; BP diastolic 72–108
[2017-09-29] MEDS: ZOLPIDEM TARTRATE 5 MG TABLET GT PRN (00:20)
--- NOTE | 2017-09-29 00:21 | NUR ---
TELE/RN NOTES OBSERVE PATIENT WIDE AWAKE AND EYES OPEN, UNABLE TO SLEEP, MONITORING FOR SLEEP AND ATTEND TO NEEDS AT ALL TIMES.
[2017-09-29] MEDS: CLONIDINE HCL 0.1 MG TABLET PO PRN (04:27)
[2017-09-29] MEDS: MEROPENEM 1 G in IV NS 0.9% 100 ML IV SCH ×3 (04:27→21:21)
[2017-09-29] MEDS: IV NS 0.9% 1,000 ML IV PRN (04:53)
--- NOTE | 2017-09-29 06:24 | NUR ---
TELE/RN NOTES PATIENT ROOM TRANSFER CLOSER TO NURSING STATION, MONITORED AT ALL TIMES, ABLE TO SLEEP AFTER SLEEPING MED GIVEN VIA GTUBE, ON MECHANICAL VENT W/ REQUIRED SETTING, WOUND CARE ON SACRAL AND ABDOMEN, KEPT SKIN INTACT AND DRY. GTUBE RESIDUAL CHECK W/ NO RESIDUAL, SINGLETON CATHETER CHECK URINE CLEAR/YELLOW. NO GUARDING OBSERVED. WILL CONTINUT TO MONITOR AND ENDORSE TO AM RN. TELE READING AT SR.
--- NOTE | 2017-09-29 07:15 | NUR ---
RN NOTES PT IS RESTING IN BED COMFORTABLY. PT ON VENT, SETTINGS ARE ACCURATE, NO SIGNS OF DISTRESS. PICC LINE ON JENNIE INTACT AND PATENT, RUNNING NS @ 75ML/HR. G-TUBE IS INTACT AND RUNNING FIBERSOURCE @ 50ML/HR. SINGLETON CATHETER IS IN PLACE AND DRAINING. SAFETY MEASURES ARE IN PLACE, CALL LIGHT IS IN REACH. WILL CONTINUE TO MONITOR.
[2017-09-29] MEDS: QUETIAPINE FUMARATE 100 MG TABLET GT SCH ×2 (08:07→16:02)
[2017-09-29] MEDS: DOCUSATE SODIUM LIQ 100 MG/10 ML UDC GT SCH ×2 (08:07→16:02)
[2017-09-29] MEDS: METOPROLOL TARTRATE 25 MG TABLET PO SCH ×2 (08:08→21:21)
[2017-09-29] MEDS: NEOMY SULF/BACITRAC ZN/POLY 15 GM TUBE TP SCH (08:08)
[2017-09-29] MEDS: MAGNESIUM OXIDE 400 MG TABLET GT SCH (08:08)
[2017-09-29] MEDS: GABAPENTIN 300 MG CAPSULE GT SCH (08:08)
[2017-09-29] MEDS: FAMOTIDINE (20 MG) 20 MG TABLET GT SCH (08:08)
[2017-09-29] MEDS: FUROSEMIDE 20 MG TABLET GT SCH ×2 (08:08→21:21)
[2017-09-29] MEDS: HYDROGEL DRESSING 90 GM TUBE TP SCH (08:09)
[2017-09-29] MEDS: MUPIROCIN OINT 2% 22 GM TUBE SCH ×2 (08:09→21:22)
[2017-09-29 08:47] LABS: EOSINOPHILS # (AUTO) 0.5 /CMM (0.0-0.7); EOSINOPHILS % (AUTO) 4.3 % (0.0-6.0); HEMATOCRIT 30 % (39-51); HEMOGLOBIN 9.9 g/dL (13.5-17.5); LYMPHOCYTES # (AUTO) 2.3 /CMM (0.8-4.8); LYMPHOCYTES % (AUTO) 19.5 % (20.0-44.0); MEAN CORPUSCULAR HEMOGLOBIN 30 PG (26.0-33.0); MEAN CORPUSCULAR HGB CONC 33 g/dl (31.0-36.0); MEAN CORPUSCULAR VOLUME 89 fL (80-96); MONOCYTES # (AUTO) 0.8 /CMM (0.1-1.30); MONOCYTES % (AUTO) 6.9 % (2.0-12.0); NEUTROPHILS # (AUTO) 8.1 /CMM (1.8-8.9); NEUTROPHILS % (AUTO) 69.3 % (43.0-81.0); PLATELET COUNT (AUTO) 201 /CMM (150-450); RDW COEFFICIENT OF VARIATION 16.8 (11.5-15.0); RED BLOOD CELL COUNT(AUTO) 3.34 MIL/uL (4.5-6.0); WHITE BLOOD COUNT (AUTO) 11.7 K/uL (4.3-11.0)
[2017-09-29 09:00] LABS: CALCIUM, SERUM 8.9 mg/dL (8.5-10.1); CREATININE 0.6 mg/dL (0.6-1.3); POTASSIUM 3.4 mmol/L (3.5-5.1)
[2017-09-29] MEDS: LINEZOLID 600 MG TABLET PO SCH ×2 (11:03)
[2017-09-29] MEDS: FIBERSOURCE HN 1,000 ML BOTTLE GT PRN (12:22)
--- NOTE | 2017-09-29 18:46 | NUR ---
RN NOTES PT IS SITTING UP IN BED, RESTING COMFORTABLY. PT CONNECTED TO VENT, SETTINGS ARE ACCURATE, O2 SATURATION 100. JENNIE PICC LINE INTACT AND RUNNING NS @ 75ML/HR. G-TUBE IS IN PLACE AND FIBERSOURCE IS RUNNING @ 50ML/HR, NO RESIDUAL. SINGLETON CATHETER IS IN PLACE AND DRAINING. ALL MEDS WERE GIVEN ORDERED. TRACHEAL SUCTION DONE NEEDED. SAFETY MEASURES ARE IN PLACE, CALL LIGHT IS IN REACH. WILL ENDORSE TO PIN DRAFTER RN FOR CONTINUITY OF CARE.
[2017-09-30] VITALS (7 sets, daily range): BP systolic 115–158; BP diastolic 83–118
[2017-09-30] MEDS: LINEZOLID 600 MG TABLET PO SCH ×2 (00:16→12:58)
[2017-09-30] MEDS: MEROPENEM 1 G in IV NS 0.9% 100 ML IV SCH ×3 (05:11→21:59)
[2017-09-30] MEDS: IV NS 0.9% 1,000 ML IV PRN ×2 (05:11→17:48)
--- NOTE | 2017-09-30 06:08 | NUR ---
RN NOTES PT IS RESTING IN BED COMFORTABLY. PT ON VENT, SETTINGS ARE ACCURATE, NO SIGNS OF DISTRESS. PICC LINE ON JENNIE INTACT AND PATENT, RUNNING NS @ 75ML/HR. G-TUBE IS INTACT AND RUNNING FIBERSOURCE @ 50ML/HR. SINGLETON CATHETER IS IN PLACE AND DRAINING. PERFORMED WOUND CARE ORDERED. PICTURES TAKEN AND PLACED IN CHART. SAFETY MEASURES ARE IN PLACE, CALL LIGHT IS IN REACH. WILL ENDORSE TO DAY SHIFT FOR OPAL.
--- NOTE | 2017-09-30 07:20 | NUR ---
RN NOTES RECEIVED PT IN BED RESTING COMFORTABLY, ORIENTED TO SELF ONLY, CURRENTLY ON MECHANICAL VENTILATION TOLERATING CURRENT SETTINGS WELL. RESPIRATIONS EVEN AND LABORED, IN NO APPARENT PAIN OR DISCOMFORT AT THIS TIME. JENNIE PICC LINE PATENT AND INTACT, NO REDNESS OR INFILTRATION NOTED, SINGLETON CATHETER IN PLACE, , INTACT, DRAINING.KEPT CLEAN DRY AND COMFORTABLE, CALL LIGHT WITHIN EASY REACH, SAFETY MEASURES IN PLACE, WILL CONTINUE TO MONITOR
[2017-09-30] MEDS: DOCUSATE SODIUM LIQ 100 MG/10 ML UDC GT SCH ×2 (09:23→17:49)
[2017-09-30] MEDS: FAMOTIDINE (20 MG) 20 MG TABLET GT SCH (09:23)
[2017-09-30] MEDS: GABAPENTIN 300 MG CAPSULE GT SCH (09:24)
[2017-09-30] MEDS: MAGNESIUM OXIDE 400 MG TABLET GT SCH (09:24)
[2017-09-30] MEDS: FUROSEMIDE 20 MG TABLET GT SCH ×2 (09:25→21:47)
[2017-09-30] MEDS: QUETIAPINE FUMARATE 100 MG TABLET GT SCH ×2 (09:25→17:49)
[2017-09-30] MEDS: NEOMY SULF/BACITRAC ZN/POLY 15 GM TUBE TP SCH (09:26)
[2017-09-30] MEDS: MUPIROCIN OINT 2% 22 GM TUBE SCH ×2 (09:26→21:47)
[2017-09-30] MEDS: HYDROGEL DRESSING 90 GM TUBE TP SCH (09:27)
[2017-09-30] MEDS: METOPROLOL TARTRATE 25 MG TABLET PO SCH ×2 (09:32→21:47)
[2017-09-30] MEDS: FIBERSOURCE HN 1,000 ML BOTTLE GT PRN (12:58)
--- NOTE | 2017-09-30 18:55 | NUR ---
RN NOTES PT IN BED RESTING COMFORTABLY, ORIENTED TO SELF ONLY, CURRENTLY ON MECHANICAL VENTILATION TOLERATING CURRENT SETTINGS WELL. RESPIRATIONS EVEN AND LABORED, IN NO APPARENT PAIN OR DISCOMFORT AT THIS TIME. JENNIE PICC LINE PATENT AND INTACT, NO REDNESS OR INFILTRATION NOTED, SINGLETON CATHETER IN PLACE, , INTACT, DRAINING CLEAR YELLOW URINE.KEPT CLEAN DRY AND COMFORTABLE, CALL LIGHT WITHIN EASY REACH, SAFETY MEASURES IN PLACE, WILL CONTINUE TO MONITOR AND ENDORSE TO NEXT SHIFT FOR CONTINUITY OF CARE
[2017-10-01 00:25] VITALS: BP 129/88
[2017-10-01] MEDS: LINEZOLID 600 MG TABLET PO SCH ×2 (00:59→13:02)
[2017-10-01] MEDS: MEROPENEM 1 G in IV NS 0.9% 100 ML IV SCH ×3 (04:24→20:26)
[2017-10-01] MEDS: CLONIDINE HCL 0.1 MG TABLET PO PRN (04:24)
[2017-10-01 06:58] VITALS: BP 144/94
--- NOTE | 2017-10-01 08:00 | NUR ---
BINDERY TECHNICIAN NOTES PT RECEIVED IN BED, AWAKE, NON VERBAL, TRACH PRESENT, GTUBE FEEDING @50ML/HR, INFUSING WELL, ON IV HYDRATION VIA JENNIE PICC LINE @75 ML/HR. PT WITH NO SIGNS OF ACUTE DISTRESS, NO FACIAL GRIMACING NOTED. WILL CONTINUE TO MONITOR PT.
[2017-10-01] MEDS: DOCUSATE SODIUM LIQ 100 MG/10 ML UDC GT SCH ×2 (09:17→17:56)
[2017-10-01] MEDS: FUROSEMIDE 20 MG TABLET GT SCH ×2 (09:17→20:26)
[2017-10-01] MEDS: GABAPENTIN 300 MG CAPSULE GT SCH (09:17)
[2017-10-01] MEDS: MAGNESIUM OXIDE 400 MG TABLET GT SCH (09:17)
[2017-10-01] MEDS: FAMOTIDINE (20 MG) 20 MG TABLET GT SCH (09:18)
[2017-10-01] MEDS: QUETIAPINE FUMARATE 100 MG TABLET GT SCH ×2 (09:18→17:56)
[2017-10-01] MEDS: METOPROLOL TARTRATE 25 MG TABLET PO SCH ×2 (09:18→20:26)
[2017-10-01] MEDS: LISINOPRIL (20MG) 20 MG TABLET PO SCH (09:19)
[2017-10-01] MEDS: IV NS 0.9% 1,000 ML IV PRN (09:26)
[2017-10-01] MEDS: MUPIROCIN OINT 2% 22 GM TUBE SCH ×2 (09:29→20:26)
[2017-10-01] MEDS: HYDROGEL DRESSING 90 GM TUBE TP SCH (09:29)
[2017-10-01] MEDS: NEOMY SULF/BACITRAC ZN/POLY 15 GM TUBE TP SCH (09:30)
[2017-10-01] MEDS: FIBERSOURCE HN 1,000 ML BOTTLE GT PRN (13:02)
--- NOTE | 2017-10-01 18:35 | NUR ---
RHYTHMIC GYMNASTICS COACH NOTES PATIENT IN BED, AWAKE, ON TELE WITH SR @ 76. NO FACIAL GRIMACING NOTED, NO SIGNS OF ACUTE DISTRESS, RECEIVING FIBERSOURCE HN VIA GTUBE @50 ML/HR, PLACED CALL LIGHT WITHIN REACH.
[2017-10-01 20:00] VITALS: BP 110/71
[2017-10-02] VITALS: BP 163/89
[2017-10-02] MEDS: LINEZOLID 600 MG TABLET PO SCH ×2 (00:39→12:27)
[2017-10-02 04:00] VITALS: BP 171/94
[2017-10-02] MEDS: MEROPENEM 1 G in IV NS 0.9% 100 ML IV SCH ×3 (04:48→21:21)
[2017-10-02] MEDS: IV NS 0.9% 1,000 ML IV PRN (04:55)
[2017-10-02] MEDS: CLONIDINE HCL 0.1 MG TABLET PO PRN (04:56)
[2017-10-02 08:00] VITALS: BP 161/110
--- NOTE | 2017-10-02 09:00 | NUR ---
MS/FISHER LAMPARA NET NOTES. BP SOFTWARE DEVELOPER CONSULTANT REPORTED BP 87/48. BP ASSESSED BOTH WITH MACHINE AND MANUAL. BP 161/110, HR 61. PT IN NO OBVIOUS DISTRESS, RESTING COMFORTABLE.
[2017-10-02] MEDS: FUROSEMIDE 20 MG TABLET GT SCH ×2 (09:15→21:21)
[2017-10-02] MEDS: QUETIAPINE FUMARATE 100 MG TABLET GT SCH ×2 (09:15→17:16)
[2017-10-02] MEDS: LISINOPRIL (20MG) 20 MG TABLET PO SCH (09:16)
[2017-10-02] MEDS: FAMOTIDINE (20 MG) 20 MG TABLET GT SCH (09:16)
[2017-10-02] MEDS: MAGNESIUM OXIDE 400 MG TABLET GT SCH (09:17)
[2017-10-02] MEDS: GABAPENTIN 300 MG CAPSULE GT SCH (09:17)
[2017-10-02] MEDS: METOPROLOL TARTRATE 25 MG TABLET PO SCH ×2 (09:17→21:21)
[2017-10-02] MEDS: DOCUSATE SODIUM LIQ 100 MG/10 ML UDC GT SCH ×2 (09:17→17:22)
[2017-10-02] MEDS: HYDROGEL DRESSING 90 GM TUBE TP SCH (09:19)
[2017-10-02] MEDS: MUPIROCIN OINT 2% 22 GM TUBE SCH ×2 (09:20→21:22)
[2017-10-02] MEDS: NEOMY SULF/BACITRAC ZN/POLY 15 GM TUBE TP SCH (09:22)
--- NOTE | 2017-10-02 09:37 | NUR ---
MS RN OPENING NOTES PT ALERT AND SUPINE IN BED. PT OFFERING SMALL NODS IN RESPONSE TO QUESTIONS, NO OBVIOUS DISTRESS. PT WITH VENT- ALL SETTINGS ACCURATE AND NO S/S OF DISTRESS. PICC R.UA, SINGLETON, G-TUBE AND PICC ARE INTACT AND OPERATIONAL. WILL CONTINUE TO MONITOR. BED IN LOWEST LOCKED POSITION, HANDRAILSX4 AND CALL GANDHI WITHIN REACH.
[2017-10-02 11:40] LABS: BASOPHILS % (AUTO) 0.1 % (0.0-2.0); EOSINOPHILS # (AUTO) 0.3 /CMM (0.0-0.7); EOSINOPHILS % (AUTO) 7.6 % (0.0-6.0); HEMATOCRIT 27 % (39-51); HEMOGLOBIN 8.7 g/dL (13.5-17.5); LYMPHOCYTES # (AUTO) 0.9 /CMM (0.8-4.8); LYMPHOCYTES % (AUTO) 20.1 % (20.0-44.0); MEAN CORPUSCULAR HEMOGLOBIN 29 PG (26.0-33.0); MEAN CORPUSCULAR HGB CONC 32 g/dl (31.0-36.0); MEAN CORPUSCULAR VOLUME 89 fL (80-96); MONOCYTES # (AUTO) 0.3 /CMM (0.1-1.30); MONOCYTES % (AUTO) 6.2 % (2.0-12.0); NEUTROPHILS # (AUTO) 2.9 /CMM (1.8-8.9); PLATELET COUNT (AUTO) 106 /CMM (150-450); RDW COEFFICIENT OF VARIATION 16.3 (11.5-15.0); RED BLOOD CELL COUNT(AUTO) 3.04 MIL/uL (4.5-6.0); WHITE BLOOD COUNT (AUTO) 4.4 K/uL (4.3-11.0)
[2017-10-02 11:53] LABS: CALCIUM, SERUM 9.5 mg/dL (8.5-10.1); CREATININE 0.5 mg/dL (0.6-1.3); POTASSIUM 3.4 mmol/L (3.5-5.1)
[2017-10-02] MEDS: FIBERSOURCE HN 1,000 ML BOTTLE GT PRN (14:05)
--- NOTE | 2017-10-02 14:42 | NUR ---
MS/NANOELECTRONICS ENGINEER NOTES. PT RESTING WIT NO S/S OF DISTRESS AT THIS TIME. VENT, SINGLETON, G TUBE AND PICC LINE ALL INTACT AND OPERATIONAL. WILL CONTINUE TO MONITOR.
[2017-10-02 16:00] VITALS: BP 117/76
[2017-10-02] MEDS: LACTOBACILLUS RHAMNOSUS GG 1 EACH CAP.SPRINK PO SCH (17:17)
--- NOTE | 2017-10-02 19:13 | NUR ---
MS/STRATEGIC ALLIANCES MANAGER CLOSING NOTES. 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 PT IS NON VERBAL AND BED BOUND. PT VENT DEPENDANT, NO S/S OF DISTRESS AT THIS TIME, VENT SETTINGS REVIEWED. SINGLETON, PICC AND G-TUBE INTACT AND OPERATIONAL. ALL DAY SHIFT DUTIES ATTENDED TO. BED IN LOWEST LOCKED POSITION WITH HANDRAILSX4. WILL ENDORSE TO NIGHT NURSE.
--- NOTE | 2017-10-02 19:30 | NUR ---
RN NOTES RECEIVED PATIENT IN BED AWAKE, AO X 1, RESPONSIVE TO VOICE AND TOUCH. NODS HEAD TO ANSWER QUESTIONS. NO ACUTE DISTRESS NOTED. NO SIGNS OF PAIN NOTED. TELE READING SINUS HR 64. JENNIE PICC LINE PATENT, INTACT; FLUSHED. GT SITE PATENT, INTACT; IN PLACE VIA AUSCULTATION. GTF ONGOING ORDERED. HOB RAISED. PATIENT TOLERATING GTF; NO RESIDUAL NOTED. SINGLETON CATH PATENT, INTACT; DRAINING CLEAR YELLOW URINE. VENT SETTINGS ORDERED. ON LOW BED WITH BILATERAL UPPER SIDE RAILS UP. BED ALARM ON. CALL LIGHT WITHIN EASY REACH. WILL CONTINUE TO MONITOR.
[2017-10-02 20:00] VITALS: BP 109/70
[2017-10-03 01:17] VITALS: BP 133/83
[2017-10-03] MEDS: LINEZOLID 600 MG TABLET PO SCH ×2 (01:19→13:02)
[2017-10-03 04:16] VITALS: BP 147/88
[2017-10-03] MEDS: MEROPENEM 1 G in IV NS 0.9% 100 ML IV SCH ×3 (04:16→21:28)
[2017-10-03 06:00] VITALS: BP 147/88
--- NOTE | 2017-10-03 06:03 | NUR ---
RN NOTES PATIENT ASLEEP, EASILY AROUSABLE. RESPIRATIONS EVEN. NO SIGNS OF PAIN NOTED. DUE MEDS GIVEN WITH NO ASE NOTES. REPOSITIONED Q 2 HOURS. KEPT CLEAN, DRY, AND COMFORTABLE. NEEDS ATTENDED. SAFETY PRECAUTIONS AND COMFORT MEASURES IN PLACE. WILL GIVE REPORT TO DAY SHIFT FOR CONTINUITY OF CARE.
--- NOTE | 2017-10-03 07:51 | NUR ---
RN OPENING NOTES RECEIVED PATIENT RESTING COMFORTABLY IN BED. EASILY AROUSABLE. AOX1. ON VENT SUPPORT. NON VERBAL. ABLE TO ANSWER QUESTIONS BY HEAD NOD. VETN SETTINGS: TV 400, AC 14, FIO2 30%, PEEP 5, WITH SHILEY #8. RESPIRATIONS EVEN AND UNLABORED. NO ACUTE DISTRESS NOTED. IV ACCESS ON THE JENNIE PATENT AND INTACT. GTUBE IN PLACE PATENT AND INTACT WITH FIBERSOURCE RUNNING AT 50ML/HR. RESIDUALS TO BE CHECKED PRIOR TO LEARNING SPECIALIST. BED LOCKED IN THE LOWEST POSITION WITH SIDE RAILS UP X2. CALL LIGHT WITHIN REACH. WILL CONTINUE TO MONITOR, ASSESS AND EDUCATE PATIENT THROUGHOUT SHIFT
[2017-10-03 08:02] VITALS: BP 112/70
[2017-10-03] MEDS: METOPROLOL TARTRATE 25 MG TABLET PO SCH ×2 (09:00→21:32)
[2017-10-03] MEDS: DOCUSATE SODIUM LIQ 100 MG/10 ML UDC GT SCH ×2 (09:57→18:01)
[2017-10-03] MEDS: QUETIAPINE FUMARATE 100 MG TABLET GT SCH ×2 (09:58→18:01)
[2017-10-03] MEDS: MAGNESIUM OXIDE 400 MG TABLET GT SCH (09:58)
[2017-10-03] MEDS: FAMOTIDINE (20 MG) 20 MG TABLET GT SCH (09:58)
[2017-10-03] MEDS: FUROSEMIDE 20 MG TABLET GT SCH ×2 (09:58→21:30)
[2017-10-03] MEDS: LACTOBACILLUS RHAMNOSUS GG 1 EACH CAP.SPRINK PO SCH ×2 (09:58→18:01)
[2017-10-03] MEDS: GABAPENTIN 300 MG CAPSULE GT SCH (09:58)
[2017-10-03] MEDS: HYDROGEL DRESSING 90 GM TUBE TP SCH (09:59)
[2017-10-03] MEDS: MUPIROCIN OINT 2% 22 GM TUBE SCH ×2 (09:59→21:28)
[2017-10-03] MEDS: NEOMY SULF/BACITRAC ZN/POLY 15 GM TUBE TP SCH (10:00)
[2017-10-03] MEDS: LISINOPRIL (20MG) 20 MG TABLET PO SCH (10:03)
--- NOTE | 2017-10-03 10:03 | NUR ---
RN NON ADMIN NOTES BP 112/70. HR 64 LISINOPRIL AND LASIX TO BE GIVEN. HELD LOPRESSOR FOR POTENTIAL HYPOTENSION.
[2017-10-03] MEDS: FIBERSOURCE HN 1,000 ML BOTTLE GT PRN (13:02)
[2017-10-03 16:00] VITALS: BP 134/95
--- NOTE | 2017-10-03 19:00 | NUR ---
RN NOTES RECEIVED PT IN BED RESTING COMFORTABLY. IN STABLE CONDITION, NO S/S OF DISTRESS. TOLERATING VENT SETTINGS ORDERED. F/C INTACT. GT TUBE RUNNING. SAFETY MEASURES ARE IN PLACE, CALL LIGHT IS IN REACH. WILL CONTINUE TO MONITOR.
--- NOTE | 2017-10-03 19:14 | NUR ---
RN CLOSING NOTES PATIENT RESTING COMFORTABLY IN BED. AOX1. JENNIE PICC LINE PATENT AND INTACT. ON TELE MONITOR READING SR 81. ON VENT SUPPORT. NO ACUTE DISTRESS. RESPIRATIONS EVEN AND UNLABORED. ALL NEEDS MET. ALL MEDS GIVEN NEEDED. GTUBE PATENT AND INTACT WITH FIBERSOURCE AT 50MLS/HR NO RESIDUALS NOTED. PATIENT TURNED Q2HR. WOUND TREATMENT DONE. WILL ENDORSE TO NIGHT RN FOR OPAL.
[2017-10-03 20:00] VITALS: BP 103/64
[2017-10-04] VITALS (9 sets, daily range): BP systolic 98–151; BP diastolic 59–96
[2017-10-04] MEDS: LINEZOLID 600 MG TABLET PO SCH ×3 (00:49→23:02)
[2017-10-04] MEDS: MEROPENEM 1 G in IV NS 0.9% 100 ML IV SCH ×3 (05:33→20:13)
--- NOTE | 2017-10-04 06:27 | NUR ---
MANUFACTURERS REPRESENTATIVE CLOSING NOTES PATIENT COMFORTABLY ASLEEP AND EASILY AWAKEN, ALERT, RESPONSE TO VERBAL AND TACTILE STIMULATION. HEAD OF BED ELEVATED FOR BETTER LUNG EXPANSION. RESPIRATIONS EVEN AND UNLABORED. TOLERATING VENT SETTINGS ORDERED. GT INFUSING AND RUNNING WELL ORDERED, NO S/S OF ACUTE DISTRESS SKIN WARM AND DRY TO TOUCH, AFEBRILE, ALL NURSING CARE RENDERED. NEEDS ATTENDED AND ANTICIPATED, KEPT CLEAN AND DRY AND COMFORTABLE, TX ORDERED. GOOD SKIN CARE PROVIDED. FREQUENT VISUAL CHECK DONE FOR SAFETY EVERY 2 HOURS. REPOSITIONED EVERY 2 HOURS FOR COMFORT AND SKIN MGT. SAFE HAZARD FREE ENVIRONMENT PROVIDED. CALL LIGHT WITHIN EASY TO REACH, ON LOW BED AT ALL TIMES TO ENSURE SAFETY, WILL ENDORSE TO THE NEXT SHIFT CONTINUE PLAN OF CARE. F/C INTACT WITH NO SEDIMENTS NO HEMATURIA NO CLOUDINESS GOOD FC CARE PROVIDED.
--- NOTE | 2017-10-04 07:29 | NUR ---
RN OPENING NOTES RECEIVED PATIENT RESTING COMFORTABLY IN BED. EASILY AROUSABLE. AOX1. ON VENT SUPPORT. NON VERBAL. ABLE TO ANSWER QUESTIONS BY HEAD NOD. VETN SETTINGS: TV 400, AC 14, FIO2 30%, PEEP 5, WITH SHILEY #8. RESPIRATIONS EVEN AND UNLABORED. NO ACUTE DISTRESS NOTED. IV ACCESS ON THE JENNIE PICC LINE PATENT AND INTACT. GTUBE IN PLACE PATENT AND INTACT WITH FIBERSOURCE RUNNING AT 50ML/HR. RESIDUALS TO BE CHECKED PRIOR TO MEDART OPERATOR. BED LOCKED IN THE LOWEST POSITION WITH SIDE RAILS UP X2. CALL LIGHT WITHIN REACH. WILL CONTINUE TO MONITOR, ASSESS AND EDUCATE PATIENT THROUGHOUT SHIFT
[2017-10-04] MEDS: LACTOBACILLUS RHAMNOSUS GG 1 EACH CAP.SPRINK PO SCH ×2 (10:35→16:34)
[2017-10-04] MEDS: DOCUSATE SODIUM LIQ 100 MG/10 ML UDC GT SCH ×2 (10:35→16:34)
[2017-10-04] MEDS: LISINOPRIL (20MG) 20 MG TABLET PO SCH (10:37)
[2017-10-04] MEDS: MAGNESIUM OXIDE 400 MG TABLET GT SCH (10:39)
[2017-10-04] MEDS: QUETIAPINE FUMARATE 100 MG TABLET GT SCH ×2 (10:39→16:34)
[2017-10-04] MEDS: FAMOTIDINE (20 MG) 20 MG TABLET GT SCH (10:39)
[2017-10-04] MEDS: FUROSEMIDE 20 MG TABLET GT SCH ×2 (10:39→21:05)
[2017-10-04] MEDS: GABAPENTIN 300 MG CAPSULE GT SCH (10:39)
[2017-10-04] MEDS: HYDROGEL DRESSING 90 GM TUBE TP SCH (10:45)
[2017-10-04] MEDS: MUPIROCIN OINT 2% 22 GM TUBE SCH ×2 (10:46→20:19)
[2017-10-04] MEDS: NEOMY SULF/BACITRAC ZN/POLY 15 GM TUBE TP SCH (10:46)
[2017-10-04] MEDS: METOPROLOL TARTRATE 25 MG TABLET PO SCH ×2 (11:00→21:05)
[2017-10-04] MEDS: FIBERSOURCE HN 1,000 ML BOTTLE GT PRN (11:05)
[2017-10-04 12:19] LABS: BASOPHILS % (AUTO) 0.1 % (0.0-2.0); EOSINOPHILS # (AUTO) 0.5 /CMM (0.0-0.7); EOSINOPHILS % (AUTO) 8.4 % (0.0-6.0); HEMATOCRIT 24 % (39-51); HEMOGLOBIN 7.6 g/dL (13.5-17.5); LYMPHOCYTES # (AUTO) 1.2 /CMM (0.8-4.8); LYMPHOCYTES % (AUTO) 20.4 % (20.0-44.0); MEAN CORPUSCULAR HEMOGLOBIN 28 PG (26.0-33.0); MEAN CORPUSCULAR HGB CONC 32 g/dl (31.0-36.0); MEAN CORPUSCULAR VOLUME 88 fL (80-96); MONOCYTES # (AUTO) 0.4 /CMM (0.1-1.30); MONOCYTES % (AUTO) 6.7 % (2.0-12.0); NEUTROPHILS # (AUTO) 3.6 /CMM (1.8-8.9); NEUTROPHILS % (AUTO) 64.4 % (43.0-81.0); PLATELET COUNT (AUTO) 73 /CMM (150-450); RDW COEFFICIENT OF VARIATION 16.3 (11.5-15.0); RED BLOOD CELL COUNT(AUTO) 2.68 MIL/uL (4.5-6.0); WHITE BLOOD COUNT (AUTO) 5.6 K/uL (4.3-11.0)
[2017-10-04 16:08] LABS: BAND % (MANUAL) 3 % (0.0-5.0); EOSINOPHILS % (MANUAL) 10 % (0-4); LYMPHOCYTES % (MANUAL) 16 % (16-48); MONOCYTES % (MANUAL) 9 % (0-11.0); NEUTROPHILS % (MANUAL) 62 (42-76)
--- NOTE | 2017-10-04 18:50 | NUR ---
RN CLOSING NOTES PATIENT RESTING COMFORTABLY IN BED. AOX1. JENNIE PICC LINE PATENT AND INTACT. ON TELE MONITOR READING SR 80. ON VENT SUPPORT. NO ACUTE DISTRESS. RESPIRATIONS EVEN AND UNLABORED. ALL NEEDS MET. ALL MEDS GIVEN NEEDED. GTUBE PATENT AND INTACT WITH FIBERSOURCE AT 50MLS/HR NO RESIDUALS NOTED. PATIENT TURNED Q2HR. WOUND TREATMENT DONE. WILL ENDORSE TO NIGHT RN FOR OPAL.
--- NOTE | 2017-10-04 19:00 | NUR ---
RN NOTES RECEIVED PT IN BED RESTING COMFORTABLY. ALERT AND RESPONSIVE TO TACTILE STIMULATION AND VERBAL. VENT ON SAME SETTINGS ORDERED. GT RUNNING ORDERED, PT IN STABLE CONDITION, NO S/S OF DISTRESS. SAFETY MEASURES ARE IN PLACE, CALL LIGHT IS IN REACH. WILL CONTINUE TO MONITOR.
[2017-10-05] VITALS: BP 109/75
[2017-10-05 04:00] VITALS: BP 134/90
[2017-10-05] MEDS: MEROPENEM 1 G in IV NS 0.9% 100 ML IV SCH ×3 (04:10→20:50)
--- NOTE | 2017-10-05 06:33 | NUR ---
PRINT SHOP CHIEF CLERK CLOSING NOTES SLEEPING AND ALERT AND RESPONSE TO VERBAL AND TACTILE STIMULATION. HEAD OF BED ELEVATED FOR BETTER LUNG EXPANSION. TOLERATING VENT SETTINGS ORDERED. 02 SAT AT 100% IN STABLE CONDITION. NO S/S OF ACUTE DISTRESS, REPOSITIONED EVERY 2 HOURS FOR COMFORT AND SKIN MGT. AFEBRILE, ALL NURSING CARE RENDERED. NEEDS ATTENDED AND ANTICIPATED, KEPT CLEAN AND DRY AND COMFORTABLE, F/C INTACT WITH NO SEDIMENTS NO HEMATURIA NO CLOUDINESS GOOD FC CARE PROVIDED. GT RUNNING AND INFUSING ORDERED. TX ORDERED. GOOD SKIN CARE PROVIDED. FREQUENT VISUAL CHECK DONE FOR SAFETY EVERY 2 HOURS. SAFE HAZARD FREE ENVIRONMENT PROVIDED. CALL LIGHT WITHIN EASY TO REACH, ON LOW BED AT ALL TIMES TO ENSURE SAFETY, WILL ENDORSE TO THE NEXT SHIFT CONTINUE PLAN OF CARE. ATTACH TO TELE MONITOR. SR 71'S
--- NOTE | 2017-10-05 07:30 | NUR ---
WOOD PREPARATION SUPERVISOR NOTES PT IN BED, AWAKE, ALERT, ABLE TO MOUTH WORDS, DENIES PAIN, NOT IN DISTRESS, VENT IN PLACE, GT FEEDING INFUSING WELL, ISOLATION PRECAUTIONS OBSERVED, CALL LIGHT WITHIN REACH.
[2017-10-05 08:18] VITALS: BP 130/84
[2017-10-05] MEDS: DOCUSATE SODIUM LIQ 100 MG/10 ML UDC GT SCH ×2 (08:30→16:53)
[2017-10-05] MEDS: GABAPENTIN 300 MG CAPSULE GT SCH (08:30)
[2017-10-05] MEDS: FUROSEMIDE 20 MG TABLET GT SCH ×2 (08:31→20:50)
[2017-10-05] MEDS: LACTOBACILLUS RHAMNOSUS GG 1 EACH CAP.SPRINK PO SCH ×2 (08:31→16:53)
[2017-10-05] MEDS: QUETIAPINE FUMARATE 100 MG TABLET GT SCH ×2 (08:31→16:53)
[2017-10-05] MEDS: MAGNESIUM OXIDE 400 MG TABLET GT SCH (08:31)
[2017-10-05] MEDS: FAMOTIDINE (20 MG) 20 MG TABLET GT SCH (08:31)
[2017-10-05] MEDS: LISINOPRIL (20MG) 20 MG TABLET PO SCH (08:32)
[2017-10-05] MEDS: METOPROLOL TARTRATE 25 MG TABLET PO SCH ×2 (08:32→20:50)
[2017-10-05] MEDS: MUPIROCIN OINT 2% 22 GM TUBE SCH ×2 (08:43→20:51)
[2017-10-05] MEDS: HYDROGEL DRESSING 90 GM TUBE TP SCH (08:43)
[2017-10-05] MEDS: NEOMY SULF/BACITRAC ZN/POLY 15 GM TUBE TP SCH (08:44)
--- NOTE | 2017-10-05 09:20 | NUR ---
SAFETY SUPERVISOR NOTES PT SEEN BY MINO TRIPP, INFORMED OF ABNORMAL LAB RESULTS, ORDERS MADE AND CARRIED OUT.
[2017-10-05] MEDS: FIBERSOURCE HN 1,000 ML BOTTLE GT PRN (12:17)
[2017-10-05] MEDS: LINEZOLID 600 MG TABLET PO SCH (12:17)
--- NOTE | 2017-10-05 13:00 | NUR ---
RADIOISOTOPE TECHNICIAN NOTES PT IN BED, ASLEEP, EASY TO AROUSE, ALERT, NO SIGN OF PAIN, NOT IN DISTRESS, GT FEEDING INFUSING WELL, TOLERATING WELL, CONSENT GIVEN BY SISTER JANET FOR TRANSFUSION OF 1 UNIT PRBC, AWAITING BLOOD FROM BLOOD BANK.
[2017-10-05 16:00] VITALS: BP 107/67
--- NOTE | 2017-10-05 18:25 | NUR ---
TUBE MAKER NOTES PT IN BED, AWAKE, NO COMPLAINT OF PAIN, BREATHING PATTERN NORMAL, VENT IN PLACE, F/C DRAINING WELL WITH CLEAR YELLOW URINE, TOLERATING CURRENT FEEDING WELL, PM CARE PROVIDED, WOUND CARE DONE, TURNED AND REPOSITIONED Q2 HRS, KEPT CLEAN AND DRY, ALL NEEDS ATTENDED.
--- NOTE | 2017-10-05 19:00 | NUR ---
RN NOTES IN BED. ALERT AND RESPONSIVE TO TACTILE STIMULATION AND VERBAL. VENT ON SAME SETTINGS ORDERED. AWAITING FOR THE BLOOD BANK. FF LABORATORY BLOOD YET NOT READY, GT RUNNING ORDERED, PT IN STABLE CONDITION, NO S/S OF DISTRESS. SAFETY MEASURES ARE IN PLACE, CALL LIGHT IS IN REACH. WILL CONTINUE TO MONITOR.
[2017-10-05 20:00] VITALS: BP 102/66
[2017-10-06] VITALS (13 sets, daily range): BP systolic 109–169; BP diastolic 67–101
[2017-10-06] MEDS: LINEZOLID 600 MG TABLET PO SCH ×3 (00:23→23:02)
--- NOTE | 2017-10-06 03:15 | NUR ---
RECEIVED CALL FROM BLOOD BANK SPOKE TO PARMINDER STATED THAT BLOOD IS READY.
--- NOTE | 2017-10-06 03:34 | NUR ---
WENT TO BLOOD BANK UNABLE TO SCAN BLOOD SECONDARY TO INCOMPATIBILITY. BLOOD BANK WILL RE VERIFY WITH RED CROSS PER (PARMINDER) BLOOD BANK WILL CALL BACK ONCE VERIFIED
--- NOTE | 2017-10-06 03:41 | NUR ---
CALLED BLOOD BANK AND REMIND TO CALL ME ONCE THE BLOOD IS READY AGAIN. CHARGE NURSE MADE AWARE
[2017-10-06] MEDS: MEROPENEM 1 G in IV NS 0.9% 100 ML IV SCH ×3 (05:02→20:53)
--- NOTE | 2017-10-06 06:25 | NUR ---
FF UP LAB ABOUT THE BLOOD, BLOOD NOW IS READY AND READY TO PHARMACY TECHNICIAN INSTRUCTOR
--- NOTE | 2017-10-06 06:50 | NUR ---
CHIN STRAP CUTTER CLOSING NOTES IN BED ASLEEP ALERT AND RESPONSIVE TO VERBAL AND TACTILE STIMULATION. HEAD OF BED ELEVATED FOR BETTER LUNG EXPANSION. 02 SAT 100% ON TELE MONITOR SR, 76'S RESPIRATIONS EVEN AND UNLABORED. TOLERATING VENT SETTINGS ORDERED. NO S/S OF ACUTE DISTRESS. IN STABLE CONDITION. AFEBRILE, ALL NURSING CARE RENDERED. NEEDS ATTENDED AND ANTICIPATED, KEPT CLEAN AND DRY AND COMFORTABLE, GT INFUSING AND RUNNING WELL ORDERED, TX ORDERED. GOOD SKIN CARE PROVIDED. FREQUENT VISUAL CHECK DONE FOR SAFETY EVERY 2 HOURS. REPOSITIONED EVERY 2 HOURS FOR COMFORT AND SKIN MGT. SAFE HAZARD FREE ENVIRONMENT PROVIDED. F/C INTACT WITH NO SEDIMENTS NO HEMATURIA NO CLOUDINESS GOOD FC CARE PROVIDED. TRANSFUSION ONGOING 1 PRBC ORDERED WILL ENDORSE TO THE NEXT SHIFT ACCORDINGLY. CALL LIGHT WITHIN EASY TO REACH, ON LOW BED AT ALL TIMES TO ENSURE SAFETY.
[2017-10-06 07:00] LABS: BASOPHILS % (AUTO) 0.3 % (0.0-2.0); EOSINOPHILS # (AUTO) 0.6 /CMM (0.0-0.7); EOSINOPHILS % (AUTO) 7.1 % (0.0-6.0); HEMATOCRIT 24 % (39-51); HEMOGLOBIN 7.7 g/dL (13.5-17.5); LYMPHOCYTES # (AUTO) 1.3 /CMM (0.8-4.8); LYMPHOCYTES % (AUTO) 16.6 % (20.0-44.0); MEAN CORPUSCULAR HEMOGLOBIN 29 PG (26.0-33.0); MEAN CORPUSCULAR HGB CONC 33 g/dl (31.0-36.0); MEAN CORPUSCULAR VOLUME 88 fL (80-96); MONOCYTES # (AUTO) 0.4 /CMM (0.1-1.30); MONOCYTES % (AUTO) 4.9 % (2.0-12.0); NEUTROPHILS # (AUTO) 5.7 /CMM (1.8-8.9); NEUTROPHILS % (AUTO) 71.1 % (43.0-81.0); PLATELET COUNT (AUTO) 77 /CMM (150-450); RDW COEFFICIENT OF VARIATION 16.7 (11.5-15.0); RED BLOOD CELL COUNT(AUTO) 2.66 MIL/uL (4.5-6.0); WHITE BLOOD COUNT (AUTO) 8.1 K/uL (4.3-11.0)
--- NOTE | 2017-10-06 07:17 | NUR ---
NO BLOOD TRANSFUSION REACTION NOTED WILL ENDORSE NEXT SHIFT
--- NOTE | 2017-10-06 07:30 | NUR ---
RECEIVED PATIENT IN STABLE CONDITION. PATIENT IS ALERT. BEDSIDE RAILS ARE UP X2. BED IS LOCKED AND LOWERED. CALL LIGHT IS WITHIN REACH. WILL CONTINUE TO MONITOR.
[2017-10-06] MEDS: MAGNESIUM OXIDE 400 MG TABLET GT SCH (09:31)
[2017-10-06] MEDS: FUROSEMIDE 20 MG TABLET GT SCH ×2 (09:31→20:53)
[2017-10-06] MEDS: DOCUSATE SODIUM LIQ 100 MG/10 ML UDC GT SCH ×2 (09:31→16:04)
[2017-10-06] MEDS: LISINOPRIL (20MG) 20 MG TABLET PO SCH (09:31)
[2017-10-06] MEDS: QUETIAPINE FUMARATE 100 MG TABLET GT SCH ×2 (09:31→16:03)
[2017-10-06] MEDS: GABAPENTIN 300 MG CAPSULE GT SCH (09:31)
[2017-10-06] MEDS: METOPROLOL TARTRATE 25 MG TABLET PO SCH ×2 (09:32→20:54)
[2017-10-06] MEDS: FAMOTIDINE (20 MG) 20 MG TABLET GT SCH (09:32)
[2017-10-06] MEDS: LACTOBACILLUS RHAMNOSUS GG 1 EACH CAP.SPRINK PO SCH ×2 (09:32→16:03)
--- NOTE | 2017-10-06 09:40 | NUR ---
BLOOD TRANSFUSION WAS COMPLETED. NO SIGNS OR SYMPTOMS OF REACTION NOTED
[2017-10-06] MEDS: Z GUARD REMEDY 2 OZ OINT TP PRN (09:43)
[2017-10-06] MEDS: HYDROGEL DRESSING 90 GM TUBE TP SCH (09:43)
[2017-10-06] MEDS: MUPIROCIN OINT 2% 22 GM TUBE SCH ×2 (09:44→20:54)
[2017-10-06] MEDS: NEOMY SULF/BACITRAC ZN/POLY 15 GM TUBE TP SCH (09:44)
[2017-10-06 10:48] LABS: BAND % (MANUAL) 4 % (0.0-5.0); EOSINOPHILS % (MANUAL) 4 % (0-4); LYMPHOCYTES % (MANUAL) 8 % (16-48); MONOCYTES % (MANUAL) 4 % (0-11.0); NEUTROPHILS % (MANUAL) 80 (42-76)
--- NOTE | 2017-10-06 14:39 | NUR ---
PER DIETITIAN PLACED AN ORDER FOR VITAMIN C, MULTIVITAMIN AND ZINC TO IMPROVE WOUND HEALING PRESSURE ULCER.
--- NOTE | 2017-10-06 19:00 | NUR ---
RN NOTES RECEIVED IN PT IN BED VENT ON SAME SETTINGS ORDERED. 02 SAT 100% ALERT AND RESPONSIVE TO TACTILE STIMULATION AND VERBAL. PT IN STABLE CONDITION, NO S/S OF DISTRESS. GT RUNNING AND INFUSING, F/C CATH INTACT IN PLACE DRAINING YELLOW VIA GRAVITY WITH NO SEDIMENTS NO HEMATURIA NO CLOUDINESS. SAFETY MEASURES ARE IN PLACE, CALL LIGHT IS IN REACH. WILL CONTINUE TO MONITOR.
--- NOTE | 2017-10-06 19:13 | NUR ---
CORE SHAPER SIDES CLOSING NOTES PATIENT IS IN STABLE CONDITION. ALL NEEDS WERE MET. CALL LIGHT IS WITHIN REACH. IN NO APPARENT DISTRESS. PATIENT IS RESTING IN BED. BEDSIDE RAILS ARE UP X2. BED IS LOCKED AND LOWERED. WILL ENDORSE CARE TO PLATE DEVELOPER NURSE FOR OPAL.
[2017-10-07] VITALS: BP 122/84
[2017-10-07 04:00] VITALS: BP 125/78
[2017-10-07] MEDS: MEROPENEM 1 G in IV NS 0.9% 100 ML IV SCH ×3 (04:00→21:29)
--- NOTE | 2017-10-07 05:53 | NUR ---
POLISHER ALUMINUM CLOSING NOTES PAGED DR. Hutchins MADE AWARE ABOUT PT HAVING EPISODES OF ST 115 PT NO S/S OF DISTRESS, SPOKE TO DR. CHRISSY CARDOSO, PER DR. DICKSON NO NEW ORDERS AT THIS TIME
--- NOTE | 2017-10-07 06:18 | NUR ---
SUPERINTENDENT DRILLING CLOSING NOTES HOB ELEVATED. COMFORTABLY ALERT AND RESPONSIVE TO VERBAL AND TACTILE STIMULATION. TOLERATING VENT SETTINGS ORDERED. 02 SAT 100% TELE MONITOR SR WITH EPISODES OF ST AT 110'S MD DRY PRIMER POWDER BLENDER MADE AWARE RESPIRATIONS EVEN AND UNLABORED. AFEBRILE, IN STABLE CONDITION. NOT IN S/S DISTRESS. GT INFUSING AND RUNNING WELL ORDERED, ALL NURSING CARE RENDERED. NEEDS ATTENDED AND ANTICIPATED, REPOSITIONED EVERY 2 HOURS FOR COMFORT AND SKIN MGT. KEPT CLEAN AND DRY AND COMFORTABLE, TX ORDERED. GOOD SKIN CARE PROVIDED. FREQUENT VISUAL CHECK DONE FOR SAFETY EVERY 2 HOURS. F/C INTACT DRAINING YELLOW VIA GRAVITY WITH NO SEDIMENTS NO HEMATURIA NO CLOUDINESS GOOD FC CARE PROVIDED. GT SITE NO S/S OF INFECTION PATENT. NO S/S OF BLEEDING NOTED. ON LOW BED AT ALL TIMES TO ENSURE SAFETY. SAFE HAZARD FREE ENVIRONMENT PROVIDED. CALL LIGHT WITHIN EASY TO REACH. WILL ENDORSE TO THE NEXT SHIFT CONTINUITY OF CARE
[2017-10-07 07:46] LABS: BASOPHILS % (AUTO) 0.1 % (0.0-2.0); EOSINOPHILS # (AUTO) 0.2 /CMM (0.0-0.7); EOSINOPHILS % (AUTO) 1.7 % (0.0-6.0); HEMATOCRIT 34 % (39-51); LYMPHOCYTES # (AUTO) 2.2 /CMM (0.8-4.8); LYMPHOCYTES % (AUTO) 17.5 % (20.0-44.0); MEAN CORPUSCULAR HEMOGLOBIN 29 PG (26.0-33.0); MEAN CORPUSCULAR HGB CONC 33 g/dl (31.0-36.0); MEAN CORPUSCULAR VOLUME 89 fL (80-96); MONOCYTES # (AUTO) 0.6 /CMM (0.1-1.30); MONOCYTES % (AUTO) 4.6 % (2.0-12.0); NEUTROPHILS # (AUTO) 9.5 /CMM (1.8-8.9); NEUTROPHILS % (AUTO) 76.1 % (43.0-81.0); PLATELET COUNT (AUTO) 75 /CMM (150-450); RDW COEFFICIENT OF VARIATION 14.7 (11.5-15.0); RED BLOOD CELL COUNT(AUTO) 3.77 MIL/uL (4.5-6.0); WHITE BLOOD COUNT (AUTO) 12.5 K/uL (4.3-11.0)
--- NOTE | 2017-10-07 08:00 | NUR ---
QUALITY CONTROL SYSTEMS MANAGER OPENING NOTES. PT ON CONTACT PRECS R/T: MRSA OF THE NARES AND VRE OF THE URINE. PT A&0X0, PT OPENED EYES FOR A SHORT TIME BUT DID NOT INDICATE UNDERSTANDING OR INTERACT. PT TOLERATING VENT, VENT SETTINGS REVIEWED AND CORRECT, SAO2 100% AT THIS TIME. PT WITHOUT S/S OF DISTRESS OR DISCOMFORT. RIGHT UA PICC LINE INTACT AND OPERATIONAL. SINGLETON CATH OPERATIONAL WITH GRAVITY DRAIN, URINE CLEAR MEGAN/YELLOW. BED IN LOWEST LOCKED POSITION WITH HANDRAILSX4 AND CALL GANDHI WITHIN REACH. WILL CONTINUE TO MONITOR.
[2017-10-07] MEDS: DOCUSATE SODIUM LIQ 100 MG/10 ML UDC GT SCH ×2 (08:29→16:39)
[2017-10-07] MEDS: MAGNESIUM OXIDE 400 MG TABLET GT SCH (08:30)
[2017-10-07] MEDS: FUROSEMIDE 20 MG TABLET GT SCH ×2 (08:30→21:29)
[2017-10-07] MEDS: LACTOBACILLUS RHAMNOSUS GG 1 EACH CAP.SPRINK PO SCH ×2 (08:31→16:39)
[2017-10-07] MEDS: QUETIAPINE FUMARATE 100 MG TABLET GT SCH ×2 (08:31→16:39)
[2017-10-07] MEDS: ASCORBIC ACID 500 MG TABLET PO SCH (08:31)
[2017-10-07] MEDS: FAMOTIDINE (20 MG) 20 MG TABLET GT SCH (08:31)
[2017-10-07] MEDS: GABAPENTIN 300 MG CAPSULE GT SCH (08:31)
[2017-10-07] MEDS: ZINC SULFATE 220 MG CAPSULE PO SCH (08:32)
[2017-10-07] MEDS: METOPROLOL TARTRATE 25 MG TABLET PO SCH ×2 (08:34→21:00)
[2017-10-07] MEDS: MUPIROCIN OINT 2% 22 GM TUBE SCH ×2 (08:35→21:30)
[2017-10-07] MEDS: LISINOPRIL (20MG) 20 MG TABLET PO SCH (08:35)
[2017-10-07] MEDS: Z GUARD REMEDY 2 OZ OINT TP PRN (08:36)
[2017-10-07] MEDS: HYDROGEL DRESSING 90 GM TUBE TP SCH (08:36)
[2017-10-07] MEDS: NEOMY SULF/BACITRAC ZN/POLY 15 GM TUBE TP SCH (08:37)
[2017-10-07] MEDS: MULTIVITAMINS,THERAGRAN 1 UDTAB TABLET GT SCH (08:49)
[2017-10-07] MEDS ORDERED: MULTIVITAMIN LIQ 5 ML UDC GT SCH (09:00)
[2017-10-07] MEDS ORDERED: POTASSIUM CHLORIDE 20 MEQ POWDER PACKET GT ONE (09:30)
[2017-10-07 09:58] LABS: BAND % (MANUAL) 3 % (0.0-5.0); EOSINOPHILS % (MANUAL) 1 % (0-4); LYMPHOCYTES % (MANUAL) 8 % (16-48); MONOCYTES % (MANUAL) 10 % (0-11.0); NEUTROPHILS % (MANUAL) 78 (42-76)
[2017-10-07] MEDS: FIBERSOURCE HN 1,000 ML BOTTLE GT PRN (12:38)
[2017-10-07] MEDS: LINEZOLID 600 MG TABLET PO SCH (12:55)
--- NOTE | 2017-10-07 14:38 | NUR ---
PREFORMS LAMINATOR NOTES. PT COMFORTABLE, NO S/S OF DISTRESS OR DISCOMFORT. WILL CONTINUE TO MONITOR.
[2017-10-07 16:00] VITALS: BP 103/68
[2017-10-07] MEDS: ACETAMINOPHEN 325 MG TABLET PO PRN (16:47)
--- NOTE | 2017-10-07 16:57 | NUR ---
HEALTH CAREERS INSTRUCTOR NOTES, PT A&0X1 EYES OPEN BRIEFLY, PT CLEARLY INDICATING ANSWERING YES AND NO TO CLOSED QUESTIONING. PT INDICATING YES TO PAIN. PRN TYLENOL ADMINISTERED. WILL CONTINUE TO MONITOR.
--- NOTE | 2017-10-07 18:49 | NUR ---
PRODUCTION OPERATIONS ENGINEER CLOSING NOTES. PT A&0X0-1, PT VENT DEPENDANT WITH ALL VENT SETTINGS REVIEWED AND ACCURATE. PT WITH R UA PICC INTACT AND OPERATIONAL, TKO WITH NS. G TUBE AND SINGLETON BOTH INTACT AND OPERATIONAL. PT WITH NO S/S OF DISTRESS OR DISCOMFORT AT THIS TIME. ALL DAY SHIFT DUTIES ATTENDED TO. WILL ENDORSE TO NIGHT NURSE.
--- NOTE | 2017-10-07 19:45 | NUR ---
SALES REPRESENTATIVE FACILITY SERVICES NOTE: PATIENT RESTING IN BED, NO ACUTE DISTRESS NOTED. BREATHING EVEN AND UNLABORED, NO SOB NOTED. VENT SETTINGS IN PLACE. PICC LINE DOUBLE LUMEN TO JENNIE IN PLACE. TELE READING SR TO SINUS TACH 90-110. G-TUBE IN PLACE WITH NO RESIDUAL, INFUSING 50ML/HR, HOB ELEVATED. SINGLETON CATHETER IN PLACE, DRAINING CLEAR YELLOW URINE. ISOLATION PRECAUTION OBSERVED. BED LOCKED AND IN LOWEST POSITION, CALL LIGHT IN REACH, WILL CONTINUE TO MONITOR.
[2017-10-08] VITALS (8 sets, daily range): BP systolic 101–151; BP diastolic 62–91
[2017-10-08] MEDS: LINEZOLID 600 MG TABLET PO SCH ×2 (00:12→12:35)
--- NOTE | 2017-10-08 05:15 | NUR ---
HEAD HOUSEKEEPER NOTE: PATIENT NOTED VOMITING YELLOWISH DRAINAGE. SUCTIONED PATIENT AND RECEIVED ABOUT 300ML OF YELLOWISH DRAINAGE. HOB ELEVATED, FEEDING HELD AT THIS TIME. NO RESIDUAL NOTED. WILL CONTINUE TO MONITOR.
[2017-10-08] MEDS: MEROPENEM 1 G in IV NS 0.9% 100 ML IV SCH ×3 (06:07→21:41)
--- NOTE | 2017-10-08 06:45 | NUR ---
SNUFF GRINDER AND SCREENER NOTE: PATIENT RESTING IN BED, NO ACUTE DISTRESS NOTED. BREATHING EVEN AND UNLABORED, NO SOB NOTED. VENT SETTINGS IN PLACE. PICC LINE DOUBLE LUMEN TO JENNIE IN PLACE. TELE READING SR TO SINUS TACH 90-110. G-TUBE IN PLACE WITH NO RESIDUAL, FEEDING HELD AT THIS TIME, HOB ELEVATED. SINGLETON CATHETER IN PLACE, ISOLATION PRECAUTION OBSERVED. BED LOCKED AND IN LOWEST POSITION, CALL LIGHT IN REACH, WILL ENDORSE TO DAY NURSE TO CONTINUE WITH PLAN OF CARE.
--- NOTE | 2017-10-08 08:15 | NUR ---
SEALER SANDER OPENING NOTES. PT WITH CONTACT PRECS R/T MRSA OF NARES AND VRE OF URINE. PT A&0X1, PT ASKED CLOSED QUESTIONS WITH CONGRUENT, CONSISTENT AND CLEAR INDICATIONS OF YES OR NO. PT VENT DEPENDENT, SETTINGS AND HARDWARE REVIEWED. PT R UA PICC LINE INTACT AND OPERATIONAL WITH TKO NS. G TUBE FEEDING ON HOLD R/T RAG SORTER AND CUTTER EMESISX2. G TUBE REVIEWED AND MINOR ANTWAN OSTOMY AIR AND FLUID LEAKAGE NOTED. AREA CLEANSED AND DRESSING APPLIED. WILL REPORT TO MD AND GI SPEC. SINGLETON CATH IS INTACT AND DRAINING APPROPRIATELY. DURING CARE ACTIVITIES PT WITH EMESISX1, YELLOW/BROWN IN COLOR APPROX 150ML. HOB ELEVATED AND PT SUCTIONED. PT AND VENT EQUIPMENT CLEANED, TRACH TUBE NORIEGA REPLACED. PT INDICATING YES FOR NAUSEA. WILL REPORT TO MD.
[2017-10-08] MEDS: DOCUSATE SODIUM LIQ 100 MG/10 ML UDC GT SCH ×2 (09:48→17:48)
[2017-10-08] MEDS: ASCORBIC ACID 500 MG TABLET PO SCH (09:48)
[2017-10-08] MEDS: GABAPENTIN 300 MG CAPSULE GT SCH (09:48)
[2017-10-08] MEDS: MULTIVITAMINS,THERAGRAN 1 UDTAB TABLET GT SCH (09:48)
[2017-10-08] MEDS: FUROSEMIDE 20 MG TABLET GT SCH ×2 (09:48→21:43)
[2017-10-08] MEDS: FAMOTIDINE (20 MG) 20 MG TABLET GT SCH (09:48)
[2017-10-08] MEDS: QUETIAPINE FUMARATE 100 MG TABLET GT SCH ×2 (09:48→17:48)
[2017-10-08] MEDS: METOPROLOL TARTRATE 25 MG TABLET PO SCH ×2 (09:49→21:46)
[2017-10-08] MEDS: LISINOPRIL (20MG) 20 MG TABLET PO SCH (09:49)
[2017-10-08] MEDS: MAGNESIUM OXIDE 400 MG TABLET GT SCH (09:49)
[2017-10-08] MEDS: ZINC SULFATE 220 MG CAPSULE PO SCH (09:49)
[2017-10-08] MEDS: LACTOBACILLUS RHAMNOSUS GG 1 EACH CAP.SPRINK PO SCH ×2 (09:50→17:48)
[2017-10-08] MEDS: MUPIROCIN OINT 2% 22 GM TUBE SCH ×2 (09:51→21:46)
[2017-10-08] MEDS: HYDROGEL DRESSING 90 GM TUBE TP SCH (09:51)
[2017-10-08] MEDS: Z GUARD REMEDY 2 OZ OINT TP PRN (09:51)
[2017-10-08] MEDS: NEOMY SULF/BACITRAC ZN/POLY 15 GM TUBE TP SCH (09:52)
[2017-10-08] MEDS: ONDANSETRON HCL/PF 4 MG/2 ML VIAL IV PRN (10:04)
[2017-10-08] MEDS: oxyCODONE IR immediate release 5 MG CAPSULE PO PRN (10:05)
[2017-10-08] MEDS ORDERED: METOCLOPRAMIDE HCL 10 MG TABLET GT SCH (12:00)
[2017-10-08] MEDS: BISACODYL SUPP (10 MG) 10 MG/SUPP.RECT SUPP.RECT RC PRN (12:35)
[2017-10-08] MEDS: ACETAMINOPHEN 325 MG TABLET PO PRN (12:59)
--- NOTE | 2017-10-08 13:00 | NUR ---
RN NOTES. MD REQUESTING NGT WITH LOW CONT. SUCTION, ORDER PLACED. MD REQUESTING CEASE OF FIBERSOURCE G-TUBE FEEDING, ORDER PLACED.
--- NOTE | 2017-10-08 14:26 | NUR ---
telephonic rn notes Received a call from Jeff CALIBRATION ENGINEER regarding order and ordered to disregard NGT suctioning attach to low intermittent, KUB in the morning 10/09/17. All orders carried out and noted. Will continue to monitor accordingly.
[2017-10-08] MEDS ORDERED: NA PHOS,M-B/NA PHOS,DI-BA 1 EA ENEMA RC ONE (14:30)
--- NOTE | 2017-10-08 14:30 | NUR ---
RN NOTES. MD CANCELLING NGT WITH LCWS. ORDER CANCELLED. MD REQUESTING ENEMA, ORDER PLACED.
--- NOTE | 2017-10-08 14:42 | NUR ---
RN NOTES. MD CANCELLING REGLAN AND REQUESTING NPO EXCEPT MEDS- ORDER PLACED.
--- NOTE | 2017-10-08 14:52 | NUR ---
RN NOTES. MD CANCELLING NGT WITH LCWS IMAGING IS SUGGESTIVE OF DISTAL CONSTIPATION, FLEET ENEMA MORE APPROPRIATE AT THIS TIME.
[2017-10-08] MEDS ORDERED: LACTULOSE 10 G/15 ML UDC (PYXIS) GT ONE (17:30)
--- NOTE | 2017-10-08 17:35 | NUR ---
RN NOTES. PT UNABLE TO OPEN BOWELS POST SUPPOSITORY AND ENEMA. MD NOTIFIED AND REQUESTING LACTULOSE 30ML X1 VIA G-TUBE. ORDERS PLACED.
[2017-10-08] MEDS ORDERED: LACTULOSE 10 G/15 ML UDC (PYXIS) PEG ONE (18:00)
--- NOTE | 2017-10-08 19:31 | NUR ---
PHOTOGRAPHY TEACHER CLOSING NOTES. PT WITH CONTACT PRECS R/T MRSA OF NARES AND VRE OF URINE. PT A&0X1 AND ASLEEP. PT VENT DEPENDANT, ALL SETTING REVIEWED AND CORRECT. R UA PICC LINE INTACT AND SALINE LOCKED. PT G TUBE AND SINGLETON OPERATIONAL. PT WITH NO OBVIOUS S/S OF DISTRESS OR DISCOMFORT. PT STILL UNABLE TO DEFECATE. ALL DAY NURSE DUTIES ATTENDED TO, WILL ENDORSE TO NIGHT NURSE AT BEDSIDE.
--- NOTE | 2017-10-08 19:35 | NUR ---
TELE/RN OPENING NOTES PT RECEIVED ASLEEP, VENT DEPENDENT WITH SETTINGS NOTED. ON TELE MONITOR SHOWING SINUS RHYTHM WITH HR AT 97. JENNIE PICC LINE PATENT AND INTACT. GT FEEDING HELD D/T INCREASED RESIDUALS AND VOMITING. PT RECEIVED LACTULOSE AND FLEET ENEMA. APPEARS COMFORTABLE AT THIS TIME. BED IN LOW/LOCKED POSITION WITH CALL LIGHT IN REACH, SIDE RAILS UPX3. WILL CONTINUE TO MONITOR
[2017-10-09] VITALS (57 sets, daily range): BP systolic 30–221; BP diastolic 15–166
[2017-10-09] MEDS: LINEZOLID 600 MG TABLET PO SCH (00:16)
[2017-10-09] MEDS: BISACODYL SUPP (10 MG) 10 MG/SUPP.RECT SUPP.RECT RC PRN (04:39)
[2017-10-09] MEDS: MEROPENEM 1 G in IV NS 0.9% 100 ML IV SCH (05:01)
--- NOTE | 2017-10-09 05:52 | NUR ---
TELE/RN NOTES WIND OPERATIONS MANAGER MINO LOPEZ CALLED FOR UPDATES REGARDING PT. INFORMED HIM THAT PT STILL HAS NOT HAD BM, GASTRIC RESIDUALS ARE 400ML DESPITE BEING NPO AND VOLUNTARILY VOMITS AND HAD OUTPUT OF 500ML. WITH NEW ORDERS FOR PEPCID 20MG IVP BID, REGLAN 5MG IV Q6H PRN, START D5NS AT 75ML/HR AND CHECK BLOOD SUGAR PRIOR TO ADMINISTRATION OF IVF. ORDERS NOTED AND REBACK PER PROTOCOL. WILL CARRY OUT.
[2017-10-09] MEDS ORDERED: METOCLOPRAMIDE HCL 10 MG/2 ML VIAL IV PRN (06:00)
[2017-10-09] MEDS ORDERED: IV D5/ 0.9% NACL 1,000 ML IV PRN (06:00)
[2017-10-09] MEDS ORDERED: METOCLOPRAMIDE HCL 10 MG/2 ML VIAL ONE (06:19)
--- NOTE | 2017-10-09 06:34 | NUR ---
TELE/RN NOTES RECEIVED CALL FROM MINO LOPEZ NP WITH ORDERS FOR STAT CBC, CMP,MAG D/C KUB AND ORDER STAT CT ABDOMEN/PELVIS WITHOUT CONTRAST FOR INTRACTABLE VOMITING. ORDERS NOTED, READ BACK PER PROTOCOL. CARRIED OUT.
[2017-10-09 07:02] LABS: BASOPHILS % (AUTO) 0.1 % (0.0-2.0); EOSINOPHILS # (AUTO) 0.2 /CMM (0.0-0.7); EOSINOPHILS % (AUTO) 1.8 % (0.0-6.0); HEMATOCRIT 24 % (39-51); LYMPHOCYTES # (AUTO) 1.1 /CMM (0.8-4.8); LYMPHOCYTES % (AUTO) 11.1 % (20.0-44.0); MEAN CORPUSCULAR HEMOGLOBIN 30 PG (26.0-33.0); MEAN CORPUSCULAR HGB CONC 33 g/dl (31.0-36.0); MEAN CORPUSCULAR VOLUME 89 fL (80-96); MONOCYTES # (AUTO) 0.6 /CMM (0.1-1.30); MONOCYTES % (AUTO) 6.5 % (2.0-12.0); NEUTROPHILS # (AUTO) 7.9 /CMM (1.8-8.9); NEUTROPHILS % (AUTO) 80.5 % (43.0-81.0); PLATELET COUNT (AUTO) 61 /CMM (150-450); WHITE BLOOD COUNT (AUTO) 9.8 K/uL (4.3-11.0)
[2017-10-09 07:23] LABS: ALBUMIN 2.5 g/dL (3.4-5.0); BILIRUBIN,TOTAL 0.6 mg/dL (0.2-1.0); CALCIUM, SERUM 11.4 mg/dL (8.5-10.1); CREATININE 2.8 mg/dL (0.6-1.3); MAGNESIUM 3.5 mg/dL (1.8-2.4); POTASSIUM 5.5 mmol/L (3.5-5.1); TOTAL PROTEIN, SERUM 8.1 g/dL (6.4-8.2)
--- NOTE | 2017-10-09 07:34 | NUR ---
TELE/RN CLOSING NOTES PT RESTING COMFORTABLY IN BED. VENT DEPENDENT. ABLE TO NOD AND MOUTH WORDS. UPDATED MINO LOPEZ NP ABOUT PT'S CONDITION, DISCUSSED WITH DAY SHIFT RN. JENNIE PICC LINE PATENT AND INTACT RUNNING D5NS @75ML/HR. ON TELE MONITOR, SR/ST HR 76. SINGLETON IN PLACE AND DRAINING TO GRAVITY. PT STILL WITH NO BM. BLOOD SUGAR CHECKED BEFORE ADMINISTRATION OF IVF WHICH WAS 96. WOUND CARE PROVIDED. TURNED/REPOSITIONED PT Q2H, HEELS OFFLOADED. GT PATENT AND INTACT WITH RESIDUALS 400ML. PT VOLUNTARILY VOMITED 500ML OF YELLOWISH EMESIS. ENDORSED TO AM SHIFT OPAL.
--- NOTE | 2017-10-09 08:00 | NUR ---
TELE/RN AM NOTES PT RECEIVED ASLEEP, VENT DEPENDENT WITH SETTINGS NOTED. ON TELE MONITOR SHOWING SINUS RHYTHM WITH ST HR AT 72. JENNIE PICC LINE PATENT AND INTACT. GT FEEDING HELD D/T INCREASED RESIDUALS AND VOMITING.NO VOMITING AT THIS TIME WILL MONITOR. PT RECEIVED LACTULOSE AND FLEET ENEMA ON PREVIOUS SHIFTS WITH NO RESULTS AND WITH BLOOD TINGED URINE IN HIS SINGLETON BAG MINO LOPEZ NP AWARE.CHECKED FOR IMPACTION WITH NEGATIVE RESULT-QASIM COOPER OF DR PRIEST AWARE WITH NEW ORDERS CARRIED OUT.BED IN LOW/LOCKED POSITION WITH CALL LIGHT IN REACH, SIDE RAILS UPX3. WILL CONTINUE TO MONITOR
[2017-10-09 08:16] LABS: BAND % (MANUAL) 6 % (0.0-5.0); EOSINOPHILS % (MANUAL) 4 % (0-4); LYMPHOCYTES % (MANUAL) 13 % (16-48); MONOCYTES % (MANUAL) 9 % (0-11.0); NEUTROPHILS % (MANUAL) 68 (42-76)
[2017-10-09] MEDS ORDERED: SODIUM POLYSTYRENE SULFONATE 15 G/60 ML BOTTLE GT ONE (08:31)
[2017-10-09] MEDS: METOPROLOL TARTRATE 25 MG TABLET PO SCH ×2 (09:00→20:49)
[2017-10-09] MEDS: DOCUSATE SODIUM LIQ 100 MG/10 ML UDC GT SCH ×2 (09:32→16:12)
[2017-10-09] MEDS: FAMOTIDINE/PF INJ 20 MG/2 ML VIAL IV SCH ×2 (09:32→16:45)
[2017-10-09] MEDS: ZINC SULFATE 220 MG CAPSULE PO SCH (09:32)
[2017-10-09] MEDS: MULTIVITAMINS,THERAGRAN 1 UDTAB TABLET GT SCH (09:33)
[2017-10-09] MEDS: LACTOBACILLUS RHAMNOSUS GG 1 EACH CAP.SPRINK PO SCH ×2 (09:33→16:12)
[2017-10-09] MEDS: MAGNESIUM OXIDE 400 MG TABLET GT SCH (09:33)
[2017-10-09] MEDS: ASCORBIC ACID 500 MG TABLET PO SCH (09:33)
[2017-10-09] MEDS: MUPIROCIN OINT 2% 22 GM TUBE SCH ×2 (09:35→20:48)
[2017-10-09] MEDS: HYDROGEL DRESSING 90 GM TUBE TP SCH (09:35)
[2017-10-09] MEDS: Z GUARD REMEDY 2 OZ OINT TP PRN (09:35)
[2017-10-09] MEDS: NEOMY SULF/BACITRAC ZN/POLY 15 GM TUBE TP SCH (09:37)
[2017-10-09] MEDS: ONDANSETRON HCL/PF 4 MG/2 ML VIAL IV PRN (10:46)
[2017-10-09 11:55] LABS: CREATININE, URINE 126.1 MG/DL (30.0-125.0)
[2017-10-09] MEDS: METOCLOPRAMIDE HCL 10 MG/2 ML VIAL IV SCH ×3 (12:00→17:04)
--- NOTE | 2017-10-09 12:08 | NUR ---
reglan 5 mg IV given at 1206pm
[2017-10-09] MEDS ORDERED: CEFTRIAXONE 1 G in IV D5W 50 ML IV SCH (13:00)
[2017-10-09 13:44] LABS: APPEARANCE,URINE CLOUDY (CLEAR); BILIRUBIN,URINE 1+ (NEGATIVE); BLOOD, URINE 3+ Ery/uL (NEGATIVE); KETONES,URINE 1+ (NEGATIVE); LEUKOCYTE ESTERASE ,URINE TRACE (NEGATIVE); NITRITE, URINE NEGATIVE (NEGATIVE); PROTEIN,URINE 2+ mg/dl (NEGATIVE); UGLUCOSE NEGATIVE (NEGATIVE); UROBILINOGEN,URINE 0.2 EU/dL (0.2)
[2017-10-09 13:46] LABS: COLOR,URINE ORANGE (YELLOW)
[2017-10-09 13:49] LABS: BACTERIA,URINE Few /HPF (None Seen); COARSE GRANULAR CASTS,URINE Few /LPF (None Seen); MUCUS,URINE Moderate /LPF (None Seen); RBC,URINE 21-50 /HPF (0-2); SQUAMOUS EPITHELIAL CELL,UR 0-2 /HPF (None Seen); URINE AMORPHOUS URATE Moderate /HPF (None Seen)
[2017-10-09 13:51] LABS: EOSINOPHIL,URINE None Seen
--- NOTE | 2017-10-09 14:19 | NUR ---
TRANSFERRED PT TO ICU.GAVE REPORT TO CENTRAL OFFICE OPERATOR.SPOKE TO MINO LOPEZ NP WHO CALLED PT'S SISTER,JERRY GREENE AND UPDATED HER OF PT'S CONDITION.
--- NOTE | 2017-10-09 14:20 | NUR ---
RN NOTES RECEIVED PT FROM 3W, VIA BED. ACCOMPANIED BY 2 RN. PT AWAKE ALERT OPENS EYES, ON MECH VENT SETTINGS PRESCRIBED, SUCTIONED FOR AIRWAY CLEARANCE. GTF ON HOLD AT THIS TIME. CT ABDOMEN SHOWS PNEUMATOSIS, SEVERE FLUID FILLED DISTENTION. PER MINO HE WILL TALK TO FAMILY REGARDING PLAN, POSSIBLE SURGERY AND TO CONNECT GT TO LOW INTERMITTENT SUCTION. FC PATENT, DRAINING DARK YELLOW COLOR URINE. JENNIE PICC LINE CDI, WITH IV D5NS@75ML/HR. KEPT PT COMFORTABLE, WILL MONITOR CLOSELY
--- NOTE | 2017-10-09 14:21 | NUR ---
BARREL POLISHER NOTES ASSESSED ABDOMEN , ABSENT BOWEL SOUND X4 QUADRANT FOR ONE FULL MINUTE , DISTENDED AND HARD TO TOUCH , GT ATTACHED VIA LOW INTERMITTENT SUCTION DRAINING WITH GREENISH OUTPUT , MINO SPOKE WITH THE FAMILY (SISTER JERRY) FOR SURGERY PLANNING , FAMILY AWARE , AWAITING FOR DECISION
[2017-10-09] MEDS ORDERED: IV NS 0.9% 500 ML IV ONE ×2 (14:30→15:00)
[2017-10-09] MEDS: METRONIDAZOLE 500MG/ NS 100ML 500 MG in PREMIX 1 EA IV SCH ×2 (14:53→22:46)
--- NOTE | 2017-10-09 15:06 | NUR ---
RN NOTES RECEIVED A CALL FROM LAB, LACTIC ACID OF 2.9 MINO JESSICA AWARE, ORDERED 1L BOLUS AND CHANGE IVF TO NS@100ML/HR ORDERED REPEAT BMP @1700. REPORTED PT BP LOW SBP 80'S. PER MINO MAY START LEVOPHED. SINGLE CONCENTRATION TITRATION PER PROTOCOL TO KEEP SBP >90 ORDERS NOTED AND CARRIED OUT
[2017-10-09] MEDS ORDERED: NOREPINEPHRINE 8 MG in IV D5W 500 ML IV PRN ×5 (16:00→20:00)
[2017-10-09] MEDS ORDERED: IV NS 0.9% 1,000 ML IV ONE (16:30)
[2017-10-09] MEDS: CEFTAZIDIME 1 G in IV D5W 50 ML IV SCH (16:39)
[2017-10-09] MEDS: IV NS 0.9% 1,000 ML IV PRN (16:41)
[2017-10-09] MEDS ORDERED: PHENYLEPHRINE 20 MG in IV D5W 250 ML IV PRN (17:30)
--- NOTE | 2017-10-09 18:05 | NUR ---
RN NOTES CBC RESULTS RELAYED TO MINO H/H 7.3, PLATELET IS 50. NO ACTIVE BLEEDING AT THIS TIME. PER MINO GIVE 2 UNITS PRBC AND TO GET DIC PANEL ALSO.
[2017-10-09 18:07] LABS: BASOPHILS % (AUTO) 0.1 % (0.0-2.0); EOSINOPHILS # (AUTO) 0.4 /CMM (0.0-0.7); EOSINOPHILS % (AUTO) 5.3 % (0.0-6.0); HEMATOCRIT 22 % (39-51); HEMOGLOBIN 7.3 g/dL (13.5-17.5); LYMPHOCYTES # (AUTO) 0.5 /CMM (0.8-4.8); LYMPHOCYTES % (AUTO) 7.2 % (20.0-44.0); MEAN CORPUSCULAR HEMOGLOBIN 29 PG (26.0-33.0); MEAN CORPUSCULAR HGB CONC 33 g/dl (31.0-36.0); MEAN CORPUSCULAR VOLUME 90 fL (80-96); MONOCYTES # (AUTO) 0.4 /CMM (0.1-1.30); NEUTROPHILS # (AUTO) 5.9 /CMM (1.8-8.9); NEUTROPHILS % (AUTO) 82.4 % (43.0-81.0); RDW COEFFICIENT OF VARIATION 15.9 (11.5-15.0); RED BLOOD CELL COUNT(AUTO) 2.48 MIL/uL (4.5-6.0); WHITE BLOOD COUNT (AUTO) 7.2 K/uL (4.3-11.0)
[2017-10-09 18:24] LABS: PLATELET COUNT (AUTO) 50 /CMM (150-450)
[2017-10-09 18:25] LABS: CALCIUM, SERUM 10.2 mg/dL (8.5-10.1); CREATININE 2.5 mg/dL (0.6-1.3)
[2017-10-09 18:28] LABS: BILIRUBIN,DIRECT 0.2 mg/dL (0.0-0.2)
--- NOTE | 2017-10-09 18:55 | NUR ---
FIELD CAPTAIN NOTES SPOKE WITH MINO , NOTIFIED PT HR IS HR 30-40 JUNCTIONAL WITH CONVERTING SR TO ST 150S' , PER MD ORDER DOPAMINE IV TITRATION PER PROTOCOL ,
--- NOTE | 2017-10-09 19:00 | NUR ---
RN WOUND NOTES STARTED PT ON NEOSYNEPRINE ORDERED DUE TO LOW MAINOR OF 70'S , WILL CONTINUE TO MONITOR ,
[2017-10-09 19:02] LABS: NEUTROPHILS % (MANUAL) 75 (42-76)
[2017-10-09 19:03] LABS: BAND % (MANUAL) 3 % (0.0-5.0); EOSINOPHILS % (MANUAL) 5 % (0-4); LYMPHOCYTES % (MANUAL) 10 % (16-48); MONOCYTES % (MANUAL) 7 % (0-11.0)
--- NOTE | 2017-10-09 19:15 | NUR ---
MACHINE REPAIR PERSON INITIAL NOTE RECEIVED PATIENT FROM [facility]. PT IN BED, AROUSABLE BUT DROWSY. RHYTHM ON MONITOR IS IN 40'S JUNCTIONAL WITH CONVERTING RHYTHM TO ST IN 150'S. ON VENT TRACH SETTINGS AC 14 TV 400 FIO2 60 NO PEEP. NO BOWEL SOUNDS. GT CONNECTED TO LIS WITH SOME BILE DRAINAGE. SINGLETON INTACT AND DRAINING YELLOW URINE. PULSES PRESENT. PT ON TWO PRESSORS LEVO AND KAY. WILL CONTINUE TO MONITOR.
--- NOTE | 2017-10-09 19:18 | NUR ---
SENIOR TREASURY ANALYST NOTES PT CURRENTLY UNSTABLE , LABILE HR OF LOW 35'S WITH EPISODES OF JUNCTIONAL RHYTHM @ 1858 PM , ST 120-155 BMP , PT ON LEVOPHED MAX DOSE AND NEOSYNPRINE 100MCG , ORDERED EKG AND ABG . AWAITING FOR RESULT
[2017-10-09] MEDS ORDERED: FEE PK DOSING 1 MIN EA MC ONE (19:34)
--- NOTE | 2017-10-09 19:35 | NUR ---
FINE CRAFT ARTIST DR CHANCE REQUESTED FOR CARDIOLOGY TO BE ON CASE. [facility] CALLED, TK OPEN HEARTH STOCKYARD SUPERVISOR. ORDERED TO START DOPAMINE AND TITRATE LEVO OFF. ONCE LEVO WAS OFF AND DOPAMINE ON, HR INCREASED TO 70'S AND PT IS AWAKE ALERT AND ORIENTED X2 NAME AND PLACE, MOUTHING WORDS TO FAMILY. DR CHANCE AND I REASSESSED BOWEL SOUNDS, BOWEL SOUNDS PRESENT IN ALL QUADRENTS. WILL CONTINUE TO MONITOR. Addendum: 10/09/17 at 2116 by JESSICA LAGUERRE RN NOTE WAS TIMED WRONG INTENDED FOR 2034.
--- NOTE | 2017-10-09 19:45 | NUR ---
PROGRAM DIR NOTES RECEIVED ORDER FROM MINO CROSS TIE CUTTER FOR SECOND PRESSOR ENOSYNPRINE , VERIFIED CONCENTRATION , START ON STANDARD DOSE , ORDERS CARRIED OUT .
--- NOTE | 2017-10-09 19:50 | NUR ---
STILE RIPSAW OPERATOR ABG DONE, DR CHANCE AWARE.
[2017-10-09] MEDS ORDERED: VANCOMYCIN 0.75 GM in IV D5W 250 ML IV SCH (20:00)
[2017-10-09] MEDS ORDERED: PHENYLEPHRINE 80 MG in IV NS 0.9% 250 ML IV PRN (20:00)
[2017-10-09 20:02] LABS: ABG BASE EXCESS 1.5 mmol/L; ABG OXYGEN SATURATION 97.8 % (92.0-98.5); ABG PCO2 40.2 mmHg (35.0-45.0); ABG PH 7.427 (7.350-7.450); ABG PO2 150.2 mmHg (75.0-100.0); AaDO2 52.6 mmHg; MetHb 0.7 % (0.0-1.5); O2Hb 97.1 % (94.0-97.0); PEEP,BG 0 cm H2O; SITE, ABG Right Radial; VT, ABG 400 mL
[2017-10-09] MEDS: DOPamine 400 MG in IV D5W 250 ML IV PRN (20:30)
--- NOTE | 2017-10-09 20:35 | NUR ---
HEEL SORTER DR CHANCE REQUESTED FOR CARDIOLOGY TO BE ON CASE. [facility] CALLED, MINENLSON ORDNANCE MECHANIC. ORDERED TO START DOPAMINE AND TITRATE LEVO OFF. ONCE LEVO WAS OFF AND DOPAMINE ON, HR INCREASED TO 70'S AND PT IS AWAKE ALERT AND ORIENTED X2 NAME AND PLACE, MOUTHING WORDS TO FAMILY. DR CHANCE AND I REASSESSED BOWEL SOUNDS, BOWEL SOUNDS PRESENT IN ALL QUADRENTS. WILL CONTINUE TO MONITOR.
--- NOTE | 2017-10-09 20:40 | NUR ---
MANAGER DECISION SUPPORT PT CONVERTED FROM JUNCTIONAL RHYTHM TO NSR 70'S. BP 103/71. WILL CONTINUE TO CLOSELY MONITOR.
[2017-10-09 21:11] LABS: CALCIUM, SERUM 10.7 mg/dL (8.5-10.1); CREATININE 2.5 mg/dL (0.6-1.3); POTASSIUM 4.1 mmol/L (3.5-5.1)
[2017-10-09 21:12] LABS: HEMOGLOBIN 10.7 g/dL (13.5-17.5)
--- NOTE | 2017-10-09 21:40 | NUR ---
SENIOR SCIENCE CONSULTANT NOTIFIED DR CHANCE REGARDING LAB RESULTS. PER DR CHANCE HOLD OFF ON TRANSFUSION AT THIS POINT. WILL CONTINUE TO MONITOR.
[2017-10-09 22:17] LABS: INR 1.11 (0.87-1.13); PROTHROMBIN TIME 11.6 SECS (9.5-12.7)
[2017-10-09 23:15] LABS: D-DIMER 5.36 mg/L(FEU (0.17-0.50)
--- NOTE | 2017-10-09 23:30 | NUR ---
ION IMPLANT MACHINE OPERATOR INITIAL NOTE RECEIVED PT FROM TWYLA FAIRCHILD. PT IN BED. INTUBATED AND TOLERATING CURRENT VENT SETTINGS. LUNG SOUNDS RHONCHI. BOWEL SOUNDS PRESENT. GT PATENT AND INTACT, NO RESIDUAL AT THIS TIME. SINGLETON INTACT AND DRAINING URINE. PULSES PRESENT. IV PATENT AND INTACT. REPOSITIONED FOR COMFORT. WILL CONTINUE TO MONITOR. Addendum: 10/10/17 at 0320 by JESSICA LAGUERRE RN WRONG ENTRY, WRONG PATIENT
[2017-10-10] VITALS (103 sets, daily range): BP systolic 80–137; BP diastolic 27–94
[2017-10-10] MEDS: METOCLOPRAMIDE HCL 10 MG/2 ML VIAL IV SCH ×5 (00:11→23:30)
--- NOTE | 2017-10-10 03:00 | NUR ---
STREET COMMISSIONER PT IN BED, TRACH VENT DEPENDENT. PT IS RESTING. NO DISTRESS NOTED. VS WNL AT THIS TIME WITH PRESSORS. REPOSITIONED FOR COMFORT. WILL CONTINUE TO MONITOR.
[2017-10-10] MEDS: IV NS 0.9% 1,000 ML IV PRN (04:10)
[2017-10-10 04:53] LABS: ALBUMIN 2.2 g/dL (3.4-5.0); BILIRUBIN,TOTAL 0.5 mg/dL (0.2-1.0); CALCIUM, SERUM 10.2 mg/dL (8.5-10.1); CREATININE 1.9 mg/dL (0.6-1.3); MAGNESIUM 2.7 mg/dL (1.8-2.4); POTASSIUM 3.6 mmol/L (3.5-5.1); TOTAL PROTEIN, SERUM 7.5 g/dL (6.4-8.2)
[2017-10-10] MEDS: METRONIDAZOLE 500MG/ NS 100ML 500 MG in PREMIX 1 EA IV SCH ×3 (05:43→22:16)
--- NOTE | 2017-10-10 07:30 | NUR ---
RN NOTES RECEIVED PT RESTING IN BED, AWAKE ALERT ORIENTED TO NAME AND IMMEDIATE NEEDS. NONVERBAL, ABLE TO MOUTH WORDS TO COMMUNICATE. NO ACUTE DISTRESS NOTED. ON [facility] VENT SETTINGS PRESCRIBED. AC 14 TV 400 FIO2 40% PEEP 0.SUCTIONED FOR AIRWAY CLEARANCE. SR ON RADIAL ROUTER OPERATOR HR 80'S. GT CONNECTED TO LOW INTERMITTENT SUCTION ORDERED. ONGOING PRESSOR, DOPAMINE@ 10MCG/KG/MIN INFUSING ON JENNIE PICC LINE. ONGOING IVF NS@100ML/HR INFUSING ON JENNIE PICC LINE, DRESSING CDI. BOWEL SOUNDS PRESENT, ABDOMEN SOFT, NON DISTENDED, PT DENIES TENDERNESS ON ABDOMEN. FC PATENT DRAINING YELLOW COLOR URINE, NOTED WITH MIN OUTPUT AT THIS TIME, WILL MONITOR CLOSELY. REPOSITIONED FOR COMFORT, SAFETY MAINTAINED. ISOLATION PRECAUTION OBSERVED
[2017-10-10] MEDS: MULTIVITAMINS,THERAGRAN 1 UDTAB TABLET GT SCH (08:19)
[2017-10-10] MEDS: LACTOBACILLUS RHAMNOSUS GG 1 EACH CAP.SPRINK PO SCH ×2 (08:19→17:00)
[2017-10-10] MEDS: MAGNESIUM OXIDE 400 MG TABLET GT SCH (08:19)
[2017-10-10] MEDS: DOCUSATE SODIUM LIQ 100 MG/10 ML UDC GT SCH ×2 (08:19→17:00)
[2017-10-10] MEDS: ASCORBIC ACID 500 MG TABLET PO SCH (08:20)
[2017-10-10] MEDS: ZINC SULFATE 220 MG CAPSULE PO SCH (08:20)
--- NOTE | 2017-10-10 08:30 | NUR ---
DEVORAH NOTES MINO LOPEZ AT BEDSIDE, PT WAS SEEN AND EVALUATED, CURRENT EVENTS REPORTED. BOWEL SOUNDS PRESENT ON ASSESSMENT. BLOOD SUGAR CHECKED 75MG/DL, PER MINO HE WILL CHANGE IT TO IV D5NS@19 Addendum: 10/10/17 at 1453 by SUSAN LAZAR RN INCOMPLETE NOTES. PLEASE SEE NEXT NOTE
--- NOTE | 2017-10-10 08:31 | NUR ---
RN NOTES MINO LOPEZ AT BEDSIDE, PT WAS SEEN AND EVALUATED, CURRENT EVENTS REPORTED. BOWEL SOUNDS PRESENT ON ASSESSMENT. BLOOD SUGAR CHECKED 75MG/DL, PER MINO HE WILL CHANGE IT TO IV D5NS@100ML/HR. GT CONNECTED TO LIS, DRAINAGE NOTED MIN-MOD AMOUNT AT 100CC LEVEL AT THIS TIME. LATEST HEMOGLOBIN 8.2, NO BLOOD TRANSFUSION AT THIS TIME. WILL MONITOR PT CLOSELY.
[2017-10-10 08:43] LABS: BASOPHILS % (AUTO) 0.1 % (0.0-2.0); EOSINOPHILS # (AUTO) 0.7 /CMM (0.0-0.7); EOSINOPHILS % (AUTO) 7.8 % (0.0-6.0); HEMATOCRIT 25 % (39-51); HEMOGLOBIN 8.2 g/dL (13.5-17.5); LYMPHOCYTES # (AUTO) 0.5 /CMM (0.8-4.8); LYMPHOCYTES % (AUTO) 5.6 % (20.0-44.0); MEAN CORPUSCULAR HEMOGLOBIN 29 PG (26.0-33.0); MEAN CORPUSCULAR HGB CONC 33 g/dl (31.0-36.0); MEAN CORPUSCULAR VOLUME 90 fL (80-96); MONOCYTES # (AUTO) 0.6 /CMM (0.1-1.30); MONOCYTES % (AUTO) 7.3 % (2.0-12.0); NEUTROPHILS # (AUTO) 6.8 /CMM (1.8-8.9); NEUTROPHILS % (AUTO) 79.2 % (43.0-81.0); PLATELET COUNT (AUTO) 56 /CMM (150-450); RDW COEFFICIENT OF VARIATION 15.7 (11.5-15.0); RED BLOOD CELL COUNT(AUTO) 2.78 MIL/uL (4.5-6.0); WHITE BLOOD COUNT (AUTO) 8.6 K/uL (4.3-11.0)
[2017-10-10] MEDS: METOPROLOL TARTRATE 25 MG TABLET PO SCH (09:00)
[2017-10-10 09:10] LABS: BAND % (MANUAL) 8 % (0.0-5.0); EOSINOPHILS % (MANUAL) 2 % (0-4); LYMPHOCYTES % (MANUAL) 2 % (16-48); MONOCYTES % (MANUAL) 5 % (0-11.0); NEUTROPHILS % (MANUAL) 83 (42-76)
[2017-10-10] MEDS: HYDROGEL DRESSING 90 GM TUBE TP SCH (09:23)
[2017-10-10] MEDS: FAMOTIDINE/PF INJ 20 MG/2 ML VIAL IV SCH ×2 (09:23→16:37)
[2017-10-10] MEDS: NEOMY SULF/BACITRAC ZN/POLY 15 GM TUBE TP SCH (09:27)
[2017-10-10] MEDS: MUPIROCIN OINT 2% 22 GM TUBE SCH ×2 (09:28→21:03)
[2017-10-10] MEDS: IV D5/ 0.9% NACL 1,000 ML IV PRN ×2 (09:42→17:53)
[2017-10-10] MEDS: DOPamine 400 MG in IV D5W 250 ML IV PRN (09:44)
[2017-10-10 11:28] LABS: ABG BASE EXCESS 4.8 mmol/L; ABG OXYGEN SATURATION 98.2 % (92.0-98.5); ABG PH 7.414 (7.350-7.450); ABG PO2 165.6 mmHg (75.0-100.0); AaDO2 28.2 mmHg; COHb 0.3 % (0.5-1.5); MetHb 1.2 % (0.0-1.5); O2Hb 96.7 % (94.0-97.0); PEEP,BG 0 cm H2O; SITE, ABG Right Radial; VENT MODE, BG AC 14 400 35%
--- NOTE | 2017-10-10 11:30 | NUR ---
RN NOTES SPOKE WITH DR MERON WEINSTEIN, VS AND LABS DISCUSSED WITH MD. PT HAS BOWEL SOUNDS PRESENT, ABDOMEN SOFT, NON TENDER, STILL GT CONNECTED TO LOW INTERMITTENT SUCTION, MILD-MODERATE AMOUNT OF GREENISH DRAINAGE/OUTPUT NOTED.PER MD NO SURGERY AT THIS TIME. CHECK KUB AND ABG. ALL ORDERS NOTED OUT.
--- NOTE | 2017-10-10 12:10 | NUR ---
RN NOTES TEMP CHECKED NOTED 92.8 RECTALLY. PT DENIES FEELING COLD,APPEARS CALM AND RELAXED IN BED. FAMILY AT BEDSIDE. PLACED BARE HUGGER TO MAINTAIN TEMP. WILL MONITOR CLOSELY
[2017-10-10] MEDS: CEFTAZIDIME 1 G in IV D5W 50 ML IV SCH (16:37)
[2017-10-10] MEDS: VANCOMYCIN 0.75 GM in IV D5W 250 ML IV SCH (17:04)
--- NOTE | 2017-10-10 18:15 | NUR ---
RN NOTES RELAYED RESULTS OF KUB TO DR DE LA CRUZ, REPORTED TO MD PT STILL HAVE MODERATE AMOUNT OF DRAINAGE VIA GASTRIC TUBE. DISCUSSED CURRENT VITALS, AND ABG RESULT. PER MD TO KEEP PT CONNECTED TO LIS, AND CHECK WBC THIS EVENING. PATIENT MAYBE STARTED ON TPN TOMORROW.
[2017-10-10 19:12] LABS: BASOPHILS % (AUTO) 0.4 % (0.0-2.0); EOSINOPHILS # (AUTO) 0.9 /CMM (0.0-0.7); EOSINOPHILS % (AUTO) 10.9 % (0.0-6.0); HEMATOCRIT 24 % (39-51); HEMOGLOBIN 8.1 g/dL (13.5-17.5); LYMPHOCYTES # (AUTO) 0.8 /CMM (0.8-4.8); LYMPHOCYTES % (AUTO) 9.3 % (20.0-44.0); MEAN CORPUSCULAR HEMOGLOBIN 29 PG (26.0-33.0); MEAN CORPUSCULAR HGB CONC 33 g/dl (31.0-36.0); MEAN CORPUSCULAR VOLUME 89 fL (80-96); MONOCYTES # (AUTO) 0.7 /CMM (0.1-1.30); MONOCYTES % (AUTO) 8.7 % (2.0-12.0); NEUTROPHILS # (AUTO) 5.8 /CMM (1.8-8.9); NEUTROPHILS % (AUTO) 70.7 % (43.0-81.0); PLATELET COUNT (AUTO) 53 /CMM (150-450); RDW COEFFICIENT OF VARIATION 15.9 (11.5-15.0); RED BLOOD CELL COUNT(AUTO) 2.74 MIL/uL (4.5-6.0); WHITE BLOOD COUNT (AUTO) 8.3 K/uL (4.3-11.0)
[2017-10-10 19:33] LABS: BAND % (MANUAL) 6 % (0.0-5.0); EOSINOPHILS % (MANUAL) 5 % (0-4); LYMPHOCYTES % (MANUAL) 7 % (16-48); MONOCYTES % (MANUAL) 7 % (0-11.0); NEUTROPHILS % (MANUAL) 75 (42-76)
--- NOTE | 2017-10-10 20:56 | NUR ---
RN:ICU: DR PAGE UPDATED REGARDING LAB, AND PT CONDITION. DR PAGE AT THE BEDSIDE ASSESSING PT. NEW ORDERS RECEIVED FOR IV PAIN MEDICATIONS PRN. PT ALERT, ABLE TO MOUTH WORDS ON VENT. PT ON LOW DOSE DOPAMINE TO SUPPORT BP. WILL KEEP MAP GREATER THAN 65 PER CARDIOLOGISTS ORDERS. PT REMAINS ON LIS WITH MODERATE GREEN FLUID. PT ABD REMAINS DISTENDED WITH HYPOACTIVE BOWEL SOUNDS. PLAN IS TO CONTINUE MEDICAL MANAGEMENT AND START TPN IN AM . WILL CONTINUE TO MONITOR CLOSELY.
[2017-10-10] MEDS ORDERED: HYDROMORPHONE INJ 2 MG/ML DISP.SYRIN IV PRN (21:00)
[2017-10-10] MEDS ORDERED: NOREPINEPHRINE 4 MG/4 ML AMPUL IV ONE (23:00)
--- NOTE | 2017-10-10 23:42 | NUR ---
RN:ICU: PT TACHYCARDIC 120'S. PT CURRENTLY DENIES PAIN AND IS AFEBRILE. ATTEMPTED TO WEAN OFF DOPAMINE THIS MAYBE CAUSING THE TACHYCARDIA. UNABLE TO COMPLETELY WEAN OFF DOPAMINE, LEVOPHED GTT MIXED AND STARTED FOR BP SUPPORT. TITRATED OFF DOPAMINE AND STARTED LEVOPHED AT 2MCG/MIN. WILL CONTINUE TO MONITOR CLOSELY.
[2017-10-11] VITALS (106 sets, daily range): BP systolic 52–156; BP diastolic 18–104
--- NOTE | 2017-10-11 05:00 | NUR ---
RN:ICU: PT BP AND HR VERY LABILE. UNABLE TO PERFORM WOUND CARE DURING BED BATH PT BP BEGAN TO DROP AND HR DECREASE. PT TEMPORARILY PLACED BACK ON LEVOPHED BUT WAS D/C SHORTLY AFTER BP BECAME ELEVATED. PT PLACE ON NIMESH HUGGER TEMP BEGAN TO DROP. WILL ENDORSE TO ONCOMING SHIFT.
[2017-10-11 05:16] LABS: BASOPHILS % (AUTO) 0.2 % (0.0-2.0); EOSINOPHILS # (AUTO) 0.7 /CMM (0.0-0.7); EOSINOPHILS % (AUTO) 7.3 % (0.0-6.0); HEMATOCRIT 23 % (39-51); HEMOGLOBIN 7.6 g/dL (13.5-17.5); LYMPHOCYTES % (AUTO) 11.2 % (20.0-44.0); MEAN CORPUSCULAR HEMOGLOBIN 30 PG (26.0-33.0); MEAN CORPUSCULAR HGB CONC 33 g/dl (31.0-36.0); MEAN CORPUSCULAR VOLUME 89 fL (80-96); MONOCYTES # (AUTO) 0.9 /CMM (0.1-1.30); MONOCYTES % (AUTO) 9.6 % (2.0-12.0); NEUTROPHILS # (AUTO) 6.5 /CMM (1.8-8.9); NEUTROPHILS % (AUTO) 71.7 % (43.0-81.0); PLATELET COUNT (AUTO) 58 /CMM (150-450); RDW COEFFICIENT OF VARIATION 15.9 (11.5-15.0); RED BLOOD CELL COUNT(AUTO) 2.55 MIL/uL (4.5-6.0)
[2017-10-11 05:20] LABS: CALCIUM, SERUM 9.7 mg/dL (8.5-10.1); CREATININE 1.3 mg/dL (0.6-1.3); POTASSIUM 3.3 mmol/L (3.5-5.1)
[2017-10-11] MEDS: METOCLOPRAMIDE HCL 10 MG/2 ML VIAL IV SCH ×4 (06:05→23:54)
[2017-10-11] MEDS: IV D5/ 0.9% NACL 1,000 ML IV PRN ×2 (06:05→23:53)
[2017-10-11] MEDS: METRONIDAZOLE 500MG/ NS 100ML 500 MG in PREMIX 1 EA IV SCH ×3 (06:05→22:24)
[2017-10-11 06:16] LABS: BAND % (MANUAL) 11 % (0.0-5.0); EOSINOPHILS % (MANUAL) 10 % (0-4); LYMPHOCYTES % (MANUAL) 9 % (16-48); MONOCYTES % (MANUAL) 6 % (0-11.0); NEUTROPHILS % (MANUAL) 64 (42-76)
[2017-10-11] MEDS: DOCUSATE SODIUM LIQ 100 MG/10 ML UDC GT SCH ×2 (08:05→16:33)
[2017-10-11] MEDS: MAGNESIUM OXIDE 400 MG TABLET GT SCH (08:05)
[2017-10-11] MEDS: MULTIVITAMINS,THERAGRAN 1 UDTAB TABLET GT SCH (08:06)
[2017-10-11] MEDS: ZINC SULFATE 220 MG CAPSULE PO SCH (08:06)
[2017-10-11] MEDS: LACTOBACILLUS RHAMNOSUS GG 1 EACH CAP.SPRINK PO SCH ×2 (08:06→16:33)
[2017-10-11] MEDS: ASCORBIC ACID 500 MG TABLET PO SCH (08:06)
[2017-10-11] MEDS: FAMOTIDINE/PF INJ 20 MG/2 ML VIAL IV SCH ×2 (08:19→16:39)
[2017-10-11] MEDS: VANCOMYCIN 0.75 GM in IV D5W 250 ML IV SCH (08:20)
[2017-10-11] MEDS: HYDROGEL DRESSING 90 GM TUBE TP SCH (08:20)
[2017-10-11] MEDS: MUPIROCIN OINT 2% 22 GM TUBE SCH (08:22)
[2017-10-11] MEDS: NEOMY SULF/BACITRAC ZN/POLY 15 GM TUBE TP SCH (08:22)
[2017-10-11] MEDS: POTASSIUM CHLORIDE 20 MEQ POWDER PACKET NG SCH ×4 (09:30→11:46)
[2017-10-11] MEDS ORDERED: TPN/PPN PER PHARMACY XX PRN (10:30)
--- NOTE | 2017-10-11 12:11 | NUR ---
MANAGER ROOM NOTE 0720: Received patient awake, able to make needs known by mouthing words. With trache to vent, tolerated setting well. SR 90's to ST 120's on the monitor. No c/o any discomfort at this time. SBP on borderline 90's. Will continue to monitor. JENNIE PICC intact, IVF infusing well. GT to LIS, noted with large amount of gastric drainage still. Dark green in color, no coffee ground noted at this time. Noted with bowel sounds and abdominal distension. No BM per previous shift, just smear mucoidal, will continue to monitor. Oropeza cath intact, noted with low UOP of ottoniel in color. Placed on katerin hugger for temp 96.4. 1100: S/E by Ji TRIPP for GI consult, no new order at this time. Awaiting for TPN. Per RUNNING INSTRUCTOR, abdomen is less distended and softer. 1130: S/E by Dr. Renee, no new order a this time. 1145: Followed up with pharmacy re: KCL to be given IVPB instead, unable to give /GT. Awaiting for TPN, said they will follow up with the MD, no available TPN per pharmacy.
[2017-10-11] MEDS: POTASSIUM CL. PREMIX PERIPHER. 50 ML IV SCH ×2 (13:56→14:44)
[2017-10-11] MEDS: CEFTAZIDIME 1 G in IV D5W 50 ML IV SCH (14:12)
[2017-10-11] MEDS ORDERED: DEXTROSE 50%-WATER 50 ML DISP.SYRIN IV PRN (14:30)
[2017-10-11] MEDS ORDERED: MVI ADULT 10ML VIAL = 1AMP 10 ML in IV 10% DEXTROSE 1,000 ML IV PRN (14:30)
[2017-10-11] MEDS: BLOOD SUGAR DIAGNOSTIC 1 EACH STRIP IN SCH (17:10)
--- NOTE | 2017-10-11 18:17 | NUR ---
EAR NOSE AND THROAT SPECIALIST NOTE Cleaned patient, noted with large amount of BM, brown semi formed. No evidenced of bleeding. Will start on 1 unit of PRBC as ordered. Family at bedside aware for the plan of care.
--- NOTE | 2017-10-11 18:50 | NUR ---
VEHICLE AND EQUIPMENT CLEANER NOTE S/E by Dr. Abernathy for Sx consult, made aware foe episode of X1 BM, no evidence of bleeding, but still with large amount of gastric contents from GT to LIS.
--- NOTE | 2017-10-11 20:00 | NUR ---
RIVET DRIVER. INITIAL ASSESSMENT. RECEIVED THE PT REST ON THE BED. AWAKE. ALERT. TRACH TO VENT CONNECTED. PIGMENT MAKING SUPERVISOR SHOWING S TACH. SHILEY#8,RATE 14,TV 400, RATE 14, FIO2 30%. SAT 98%. NO ACUTE DISTRESS NOTED. IV RT UPPER ARM PICC LINE IV D5NS 50ML/H, [id number] MULTIVITAMIN @50ML/H. FC PATENT. GT INTACT. LOW INTERMITTENT SUCTION. NPO. HOB ELEVATED. TURN AND REPOSITION Q2H. WILL CONTINUE TO MONITOR VITALS.
--- NOTE | 2017-10-11 21:13 | NUR ---
CIGARETTE TESTER. BLOOD TRANSFUSION FINISHED. DURING TRANSFUSION NO COMPLICATION NOTED.
--- NOTE | 2017-10-11 21:49 | NUR ---
PT RECEIVED TRACH ON VENT. NO RESP DISTRESS NOTED. PT IS AWAKE FOLLOWS COMMANDS. SX'D FOR SML AMT OF THICK YELLOW SECRETIONS. VENT ALARMS SET AND AUDIBLE. AMBU BAG AT BEDSIDE. VENT PLUGGED INTO RED OUTLET. WILL CONTINUE TO MONITOR. Addendum: 10/11/17 at 2151 by MATHIEU NINO RT Amended: Links added.
[2017-10-11] MEDS: MORPHINE SULFATE INJ 2 MG/ML DISP.SYRIN IV PRN (22:41)
[2017-10-12] VITALS (38 sets, daily range): BP systolic 78–158; BP diastolic 52–108
[2017-10-12] MEDS: BLOOD SUGAR DIAGNOSTIC 1 EACH STRIP IN SCH ×5 (00:21→23:50)
[2017-10-12] MEDS: MUPIROCIN OINT 2% 22 GM TUBE SCH ×3 (00:52→20:29)
[2017-10-12] MEDS: VANCOMYCIN 0.75 GM in IV D5W 250 ML IV SCH ×2 (03:25→21:48)
--- NOTE | 2017-10-12 03:27 | NUR ---
LIVESTOCK TRADER. AM CARE, ORAL CARE, BED BATH GIVEN. LINEN CHANGED. REMAINING SAME VENT SETTING TOLERATED WELL. SAT 98%. NO ACUTE DISTRESS NOTED. FLITCH HANGER SHOWING NSR. IV RT UPPER ARM PICC LINE IVF D5NS 50ML/H, FC PATENT. GT LOW INTERMITTENT SUCTION. HOB ELEVATED. NPO. AFEBRILE. TURN AND REPOSITION Q2H. WILL CONTINUE TO MONITOR VITALS.
[2017-10-12] MEDS: MORPHINE SULFATE INJ 2 MG/ML DISP.SYRIN IV PRN ×3 (04:07→20:20)
[2017-10-12 04:34] LABS: EOSINOPHILS # (AUTO) 0.8 /CMM (0.0-0.7); EOSINOPHILS % (AUTO) 8.4 % (0.0-6.0); HEMATOCRIT 25 % (39-51); HEMOGLOBIN 8.2 g/dL (13.5-17.5); LYMPHOCYTES # (AUTO) 1.2 /CMM (0.8-4.8); LYMPHOCYTES % (AUTO) 13.1 % (20.0-44.0); MEAN CORPUSCULAR HEMOGLOBIN 29 PG (26.0-33.0); MEAN CORPUSCULAR HGB CONC 33 g/dl (31.0-36.0); MEAN CORPUSCULAR VOLUME 88 fL (80-96); MONOCYTES # (AUTO) 0.9 /CMM (0.1-1.30); MONOCYTES % (AUTO) 9.2 % (2.0-12.0); NEUTROPHILS # (AUTO) 6.6 /CMM (1.8-8.9); NEUTROPHILS % (AUTO) 69.3 % (43.0-81.0); PLATELET COUNT (AUTO) 57 /CMM (150-450); RDW COEFFICIENT OF VARIATION 16.8 (11.5-15.0); RED BLOOD CELL COUNT(AUTO) 2.81 MIL/uL (4.5-6.0); WHITE BLOOD COUNT (AUTO) 9.5 K/uL (4.3-11.0)
[2017-10-12 04:44] LABS: CALCIUM, SERUM 9.1 mg/dL (8.5-10.1); CREATININE 0.9 mg/dL (0.6-1.3); POTASSIUM 2.9 mmol/L (3.5-5.1)
[2017-10-12 05:06] LABS: EOSINOPHILS % (MANUAL) 9 % (0-4); LYMPHOCYTES % (MANUAL) 16 % (16-48); MONOCYTES % (MANUAL) 8 % (0-11.0); NEUTROPHILS % (MANUAL) 67 (42-76)
[2017-10-12] MEDS: METOCLOPRAMIDE HCL 10 MG/2 ML VIAL IV SCH ×4 (05:54→23:26)
[2017-10-12] MEDS: METRONIDAZOLE 500MG/ NS 100ML 500 MG in PREMIX 1 EA IV SCH ×3 (05:54→21:54)
[2017-10-12] MEDS: ASCORBIC ACID 500 MG TABLET PO SCH (08:14)
[2017-10-12] MEDS: LACTOBACILLUS RHAMNOSUS GG 1 EACH CAP.SPRINK PO SCH ×2 (08:14→17:00)
[2017-10-12] MEDS: FAMOTIDINE/PF INJ 20 MG/2 ML VIAL IV SCH ×2 (08:14→17:00)
[2017-10-12] MEDS: MAGNESIUM OXIDE 400 MG TABLET GT SCH (08:15)
[2017-10-12] MEDS: ZINC SULFATE 220 MG CAPSULE PO SCH (08:15)
[2017-10-12] MEDS: NEOMY SULF/BACITRAC ZN/POLY 15 GM TUBE TP SCH (08:15)
[2017-10-12] MEDS: DOCUSATE SODIUM LIQ 100 MG/10 ML UDC GT SCH ×2 (08:15→17:00)
[2017-10-12] MEDS: MULTIVITAMINS,THERAGRAN 1 UDTAB TABLET GT SCH (08:15)
[2017-10-12] MEDS: HYDROGEL DRESSING 90 GM TUBE TP SCH (08:15)
[2017-10-12] MEDS ORDERED: POTASSIUM CL. PREMIX PERIPHER. 50 ML IV SCH (08:30)
[2017-10-12] MEDS: Potassium Chloride 10 MEQ in IV D5W 50 ML IV SCH ×11 (08:55→23:24)
[2017-10-12] MEDS ORDERED: POTASSIUM CHLORIDE IV PRN (09:45)
[2017-10-12] MEDS ORDERED: DEXTROSE IV PRN (09:45)
[2017-10-12] MEDS ORDERED: MVI ADULT IV PRN (09:45)
--- NOTE | 2017-10-12 11:52 | NUR ---
INVESTMENT PROFESSIONAL NOTE 0720: received patient awake, A/Ox3, trache to vent. Able to mouth words, noted with contraction on all extremities. No respiratory distress noted at this time, tolerated vent settings well. No c/o discomfort at this time. With GT intact, connected to LIWS, noted with small amount of clear with greenish output. 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 SR 90 s on the monitor. SBP remained >90. Oropeza cath intact, noted with small amount of ottoniel colored urine drained to BSD. JENNIE PICC intact, IVF of D5NS @ 50 and D10 with MVI at 50. No S/S hypo/hyperglycemia noted at this time. 0800: S/E by Dr. Brar, with order for another 4bags additional for 6 bags. Obtained order for march transfer to [facility], CN aware, made nurse sup aware. Patient aware for the POC. 0830: S/E by Dr. Carney, made aware with low UOP. 0950: Pharmacy and CN clarified with Dr. Carney re: order of IVF with MVI and KCl, even on 10 bags of KCl today. Per , may give. 1150: Report given to Aundrea FAIRCHILD, all questions were answered. Awaiting for call back, preparing room.
--- NOTE | 2017-10-12 12:40 | NUR ---
STOCK RANCH SUPERVISOR NOTE Transferred patient to [facility] via ACLS protocol. Via bed, no significant changes noted during the transfer.
[2017-10-12] MEDS: CEFTAZIDIME 1 G in IV D5W 50 ML IV SCH (15:31)
--- NOTE | 2017-10-12 17:54 | NUR ---
rn notes npo for 7 days, g-tube feeding and medications were not administred
--- NOTE | 2017-10-12 19:14 | NUR ---
TRENCH DIGGING MACHINE OPERATOR CLOSING NOTE PATIENT IS IN STABLE CONDITION. ALL NEEDS WERE MET. CALL LIGHT IS WITHIN REACH. IN NO APPARENT DISTRESS. PATIENT IS AWAKE. BEDSIDE RAILS ARE UP X2. BED IS LOCKED AND LOWERED. WILL ENDORSE CARE TO LAWN AND GARDEN TECHNICIAN NURSE FOR OPAL
--- NOTE | 2017-10-12 19:40 | NUR ---
[facility]/FINISHED METAL REPAIRER CALLED MD ABOUT GETTING SOMETHING FOR PT'S BLOOD PRESSURE. PT'S BLOOD PRESSURE WAS 180/123. ORDER WAS RECEIVED FROM DR. MCNULTY FOR CLONIDINE 0.1MG PATCH FOR 1 WEEK TO BE ON PT. ORDER WAS PLACED IN THE COMPUTER THEN CARRIED OUT . CHARGE NURSE MADE AWARE OF THE ORDER AND PLACED ON PT. PT WAS TURNED AND REPOSITIONED FOR COMFORT AND CARE.
--- NOTE | 2017-10-12 20:10 | NUR ---
[facility]/MOBILE ARCHITECT PT COMPLAINED ABOUT PAIN RATED 9/10, GAVE MORPHINE IVP PRN FOR THIS. PT'S BLOOD PRESSURE ALSO ELEVATED. CHARGE NURSE MADE AWARE OF THIS. WILL MONITOR THIS PT'S BLOOD PRESSURE ALONE WITH PAIN MGNT.
[2017-10-12] MEDS ORDERED: CLONIDINE HCL 0.1MG/24H PTWK 1 EA PATCH TD ONE (20:11)
[2017-10-12] MEDS ORDERED: CLONIDINE HCL 0.1MG/24H PTWK 1 EA PATCH TD SCH (20:30)
--- NOTE | 2017-10-12 20:30 | NUR ---
[facility]/SEAM PRESS OPERATOR PT'S BLOOD PRESSURE CAME DOWN TO 158/108, THIS IS LOWER THAN EARLIER. WILL CONTINUE TO MONITOR THIS PT. PAIN ALSO RATED AT 3/10. CALL LIGHT WITHIN REACH.
--- NOTE | 2017-10-12 22:30 | NUR ---
[facility]/CREDIT UNION TELLER DR CHANCE CALLED GAVE ORDER FOR ABDOMINAL PELVIS CT WITH 500ML CONTRAST THROUGH THE G/TUBE THEN I HOUR LATER CAT SCAN ABDOMINAL WITHOUT IV CONTRAST. ORDER WAS VERIFIED BACK TO MD TO MAKE SURE THAT EVERYTHING WAS CORRECT. DR CHANCE SAID YES THIS WAS CORRECT AND THE ORDER WAS PLACED IN COMPUTER AND CARRIED OUT.
[2017-10-13] VITALS: BP_SYST 153; BP_SYST 156; BP_DIAS 93
--- NOTE | 2017-10-13 00:10 | NUR ---
[facility]/MERCHANDISING STOCK ASSOCIATE PT'S BLOOD SUGAR IS 110, THERE IS NO COVERAGE FOR THIS PER MD ORDERED. WILL CONTINUE TO MONITOR THIS PER MD ORDERS. PT WAS TURNED AND REPOSITIONED FOR COMFORT AND CARE.
--- NOTE | 2017-10-13 01:46 | NUR ---
[facility]/LIVESTOCK SLAUGHTERER ALL POTASSIUM ORDERED FROM EARLIER ON DAY SHIFT THAT WAS NOW GIVEN, HAS NOW BEEN GIVEN. WAIT AM LABS TO MAKE SURE POTASSIUM LEVEL HAS INCREASED.
[2017-10-13 04:00] VITALS: BP 143/92
[2017-10-13] MEDS: MORPHINE SULFATE INJ 2 MG/ML DISP.SYRIN IV PRN (04:17)
[2017-10-13] MEDS: METRONIDAZOLE 500MG/ NS 100ML 500 MG in PREMIX 1 EA IV SCH ×3 (05:47→22:47)
[2017-10-13] MEDS: METOCLOPRAMIDE HCL 10 MG/2 ML VIAL IV SCH ×4 (05:47→23:08)
[2017-10-13] MEDS: BLOOD SUGAR DIAGNOSTIC 1 EACH STRIP IN SCH ×4 (05:48→23:25)
--- NOTE | 2017-10-13 05:50 | NUR ---
[facility]/SYSTEM SOFTWARE DEVELOPER PT'S BLOOD SUGAR IS 110, THERE IS NO COVERAGE FOR THIS PER MD ORDERED. WILL CONTINUE TO MONITOR THIS PER MD ORDERS. PT WAS TURNED AND REPOSITIONED FOR COMFORT AND CARE.
[2017-10-13] MEDS: IV D5/ 0.9% NACL 1,000 ML IV PRN ×2 (05:59→11:39)
[2017-10-13 07:07] LABS: BASOPHILS % (AUTO) 0.1 % (0.0-2.0); EOSINOPHILS # (AUTO) 1.1 /CMM (0.0-0.7); EOSINOPHILS % (AUTO) 10.3 % (0.0-6.0); HEMATOCRIT 24 % (39-51); HEMOGLOBIN 7.7 g/dL (13.5-17.5); LYMPHOCYTES # (AUTO) 1.4 /CMM (0.8-4.8); LYMPHOCYTES % (AUTO) 13.2 % (20.0-44.0); MEAN CORPUSCULAR HEMOGLOBIN 28 PG (26.0-33.0); MEAN CORPUSCULAR HGB CONC 32 g/dl (31.0-36.0); MEAN CORPUSCULAR VOLUME 88 fL (80-96); MONOCYTES # (AUTO) 0.5 /CMM (0.1-1.30); MONOCYTES % (AUTO) 4.8 % (2.0-12.0); NEUTROPHILS # (AUTO) 7.8 /CMM (1.8-8.9); NEUTROPHILS % (AUTO) 71.6 % (43.0-81.0); PLATELET COUNT (AUTO) 59 /CMM (150-450); RDW COEFFICIENT OF VARIATION 16.4 (11.5-15.0); RED BLOOD CELL COUNT(AUTO) 2.73 MIL/uL (4.5-6.0); WHITE BLOOD COUNT (AUTO) 10.9 K/uL (4.3-11.0)
[2017-10-13 07:46] LABS: ALBUMIN 1.9 g/dL (3.4-5.0); BILIRUBIN,TOTAL 0.4 mg/dL (0.2-1.0); CALCIUM, SERUM 8.9 mg/dL (8.5-10.1); CREATININE 0.7 mg/dL (0.6-1.3); MAGNESIUM 1.7 mg/dL (1.8-2.4); PHOSPHORUS 2.3 mg/dL (2.5-4.9); TOTAL PROTEIN, SERUM 6.3 g/dL (6.4-8.2)
[2017-10-13 08:00] VITALS: BP 158/108
--- NOTE | 2017-10-13 08:00 | NUR ---
RN NOTE Received 57 year old male patient with dx of sepsis and UTI on ventilator. Patient is alert but unable to follow commands due to being a quadriplegic. He does have some movement of right shoulder area and left leg. Denies pain. Monitor shows sinus rhythm at 91 bpm. Pulses are palpable. JENNIE PICC line infusing D5NS at 50 cc/hour and MVI bag at 50 cc/hour. No edema present. Patient saturating 100% on vent settings AC 14, FIO2 30%, TV 400 and no peep. Breathing is unlabored. Ausculated rhonchi throughout. Suctioned small amount of cream colored sections from trach #8 Shiley. Abdomen is soft with bowel sounds present. G-tube to low intermittent suction draining green fluid. Oropeza catheter draining small amount of ottoniel urine. Skin is warm and dry. There are pressure ulcers on sacrum, buttocks, left leg and bilateral heels. Patient is due for CT scan of abdomen this morning and will hold a.m. medications due to oral contrast.
[2017-10-13] MEDS: MAGNESIUM OXIDE 400 MG TABLET GT SCH (09:00)
[2017-10-13] MEDS: MULTIVITAMINS,THERAGRAN 1 UDTAB TABLET GT SCH (09:00)
[2017-10-13] MEDS: ASCORBIC ACID 500 MG TABLET PO SCH (09:00)
[2017-10-13] MEDS: LACTOBACILLUS RHAMNOSUS GG 1 EACH CAP.SPRINK PO SCH ×2 (09:00→16:49)
[2017-10-13] MEDS: ZINC SULFATE 220 MG CAPSULE PO SCH (09:00)
[2017-10-13] MEDS: FAMOTIDINE/PF INJ 20 MG/2 ML VIAL IV SCH ×2 (09:00→16:49)
[2017-10-13] MEDS: DOCUSATE SODIUM LIQ 100 MG/10 ML UDC GT SCH ×2 (09:00→16:49)
[2017-10-13 09:04] LABS: EOSINOPHILS % (MANUAL) 6 % (0-4); LYMPHOCYTES % (MANUAL) 14 % (16-48); MONOCYTES % (MANUAL) 3 % (0-11.0); NEUTROPHILS % (MANUAL) 77 (42-76)
--- NOTE | 2017-10-13 09:16 | NUR ---
RN NOTE Portable chest x-ray done.
[2017-10-13] MEDS: MUPIROCIN OINT 2% 22 GM TUBE SCH ×2 (09:20→22:46)
[2017-10-13] MEDS: HYDROGEL DRESSING 90 GM TUBE TP SCH (09:22)
[2017-10-13] MEDS: Z GUARD REMEDY 2 OZ OINT TP PRN (09:22)
[2017-10-13] MEDS: NEOMY SULF/BACITRAC ZN/POLY 15 GM TUBE TP SCH (09:23)
[2017-10-13] MEDS: Magnesium 1GM/D5W 100ML PREMIX 100 ML IV SCH ×2 (09:46→10:55)
[2017-10-13] MEDS ORDERED: DIATR MEGLU/DIATRIZOATE SODIUM 30 ML BOTTLE (GASTROGRAPHIN) ONE (11:07)
[2017-10-13] MEDS: INSULIN REGULAR, HUMAN 100 UNIT/ML 3 ML VIAL SQ PRN ×3 (11:50→23:24)
[2017-10-13 12:00] VITALS: BP 156/98
--- NOTE | 2017-10-13 13:15 | NUR ---
RN NOTE Patient was given 500 ml of contrast through the G-tube and patient went for CT scan of abdomen accompanied by myself, RT and 2 Radiology personnel.
[2017-10-13] MEDS: CEFTAZIDIME 1 G in IV D5W 50 ML IV SCH (14:26)
--- NOTE | 2017-10-13 15:00 | NUR ---
RN NOTE Wound care was done and complete linen change done.
[2017-10-13] MEDS: VANCOMYCIN 0.75 GM in IV D5W 250 ML IV SCH (15:15)
[2017-10-13 16:00] VITALS: BP 145/89
[2017-10-13] MEDS ORDERED: K PHOS NEUTRAL 250 MG TABLET PO ONE (16:00)
[2017-10-13] MEDS ORDERED: FIBERSOURCE HN 1,000 ML BOTTLE GT PRN (17:00)
[2017-10-13 20:00] VITALS: BP 178/126
--- NOTE | 2017-10-13 20:07 | NUR ---
PT RECEIVED TRACH ON VENT. PT IS AWAKE ,SUCTIONED SMALL AMOUNT OF THICK YELLOW SECRETIONS. VENT ALARMS SET AND AUDIBLE. AMBU BAG AT BEDSIDE. VENT PLUGGED INTO RED OUTLET. NO RESPIRATORY DISTRESS AT THIS TIME, WILL CONTINUE TO MONITOR THE PT.
--- NOTE | 2017-10-13 23:22 | NUR ---
QASIM MORTON CALLED, WITH NEW ORDER TO RESUME GT FEEDING NOW, HOLD GTF IF RESIDUALS >150 ML
[2017-10-14] VITALS (7 sets, daily range): BP systolic 90–117; BP diastolic 61–80
[2017-10-14] MEDS: METOCLOPRAMIDE HCL 10 MG/2 ML VIAL IV SCH ×4 (06:00→23:45)
[2017-10-14] MEDS: BLOOD SUGAR DIAGNOSTIC 1 EACH STRIP IN SCH ×4 (06:00→23:45)
[2017-10-14 06:03] LABS: BASOPHILS % (AUTO) 0.2 % (0.0-2.0); EOSINOPHILS # (AUTO) 0.7 /CMM (0.0-0.7); EOSINOPHILS % (AUTO) 7.5 % (0.0-6.0); HEMATOCRIT 25 % (39-51); LYMPHOCYTES # (AUTO) 1.2 /CMM (0.8-4.8); LYMPHOCYTES % (AUTO) 13.4 % (20.0-44.0); MEAN CORPUSCULAR HEMOGLOBIN 28 PG (26.0-33.0); MEAN CORPUSCULAR HGB CONC 33 g/dl (31.0-36.0); MEAN CORPUSCULAR VOLUME 88 fL (80-96); MONOCYTES # (AUTO) 0.5 /CMM (0.1-1.30); MONOCYTES % (AUTO) 5.2 % (2.0-12.0); NEUTROPHILS # (AUTO) 6.6 /CMM (1.8-8.9); NEUTROPHILS % (AUTO) 73.7 % (43.0-81.0); PLATELET COUNT (AUTO) 84 /CMM (150-450); RDW COEFFICIENT OF VARIATION 15.8 (11.5-15.0); RED BLOOD CELL COUNT(AUTO) 2.81 MIL/uL (4.5-6.0)
[2017-10-14 06:16] LABS: CALCIUM, SERUM 8.6 mg/dL (8.5-10.1); CREATININE 0.7 mg/dL (0.6-1.3); POTASSIUM 3.7 mmol/L (3.5-5.1)
--- NOTE | 2017-10-14 06:45 | NUR ---
NEW CAR SALESPERSON - REC'D PT.TRACHED/VENTED/PEGGED. PT. HAD 3 COMPLETE BEDBATHS THIS SHIFT DUE TO 3 BOUTS OF DIARRHEA. REGLAN HELD IN AM. SKIN PICTURES DONE LAST NIGHT ALONG W/SKIN/WOUND CARE ADM. 400 CC OUT FOR UOP/SINGLETON. ALLISON LOYOLA WAS HERE LAST NOC TO ASSESS PT. FIBERSOURCE STARTED AT 01:30, AT 20CC/HR. GOAL IS 50CC/HR. 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 PT. IS A QUAD. BUE'S ARE CONTRACTED. D5NS INFUSING AT 50CC/HR. CONT. POC.
[2017-10-14] MEDS: METRONIDAZOLE 500MG/ NS 100ML 500 MG in PREMIX 1 EA IV SCH (06:52)
[2017-10-14] MEDS: INSULIN REGULAR, HUMAN 100 UNIT/ML 3 ML VIAL SQ PRN (07:01)
[2017-10-14] MEDS: MAGNESIUM OXIDE 400 MG TABLET GT SCH (08:39)
[2017-10-14] MEDS: ZINC SULFATE 220 MG CAPSULE PO SCH (08:39)
[2017-10-14] MEDS: ASCORBIC ACID 500 MG TABLET PO SCH (08:39)
[2017-10-14] MEDS: LACTOBACILLUS RHAMNOSUS GG 1 EACH CAP.SPRINK PO SCH ×2 (08:39→16:09)
[2017-10-14] MEDS: MULTIVITAMINS,THERAGRAN 1 UDTAB TABLET GT SCH (08:39)
[2017-10-14] MEDS: FAMOTIDINE/PF INJ 20 MG/2 ML VIAL IV SCH ×2 (08:39→16:09)
[2017-10-14] MEDS: MUPIROCIN OINT 2% 22 GM TUBE SCH ×2 (08:40→22:17)
[2017-10-14] MEDS: DOCUSATE SODIUM LIQ 100 MG/10 ML UDC GT SCH ×2 (08:40→16:07)
[2017-10-14] MEDS: NEOMY SULF/BACITRAC ZN/POLY 15 GM TUBE TP SCH (08:40)
[2017-10-14] MEDS: HYDROGEL DRESSING 90 GM TUBE TP SCH (08:40)
[2017-10-14] MEDS: VANCOMYCIN 0.75 GM in IV D5W 250 ML IV SCH (08:46)
[2017-10-14 10:19] LABS: EOSINOPHILS % (MANUAL) 5 % (0-4); LYMPHOCYTES % (MANUAL) 17 % (16-48); NEUTROPHILS % (MANUAL) 78 (42-76)
[2017-10-14] MEDS: MORPHINE SULFATE INJ 2 MG/ML DISP.SYRIN IV PRN ×3 (10:20→20:00)
[2017-10-14] MEDS: IV D5/ 0.9% NACL 1,000 ML IV PRN (11:42)
[2017-10-14] MEDS: CEFTAZIDIME 1 G in IV D5W 50 ML IV SCH (13:01)
[2017-10-14] MEDS ORDERED: METRONIDAZOLE 500 MG TABLET PO SCH (14:00)
--- NOTE | 2017-10-14 18:41 | NUR ---
PT'S TF INCREASED TO 30ML/HR THROUGHOUT THE DAY HE MAINTAINED RESIDUALS AT AROUND 20-30CC UNTIL ABOUT 1700 PT HAD NO RESIDUALS SO INCREASED THE TF RATE TO 30ML/HR WILL CONT TO MONITOR RESIDUALS.
--- NOTE | 2017-10-14 19:15 | NUR ---
TELERN AWAKE, FEEDINGS VIA GT ON GOING, WILL RECHECK RESIDUALS. VENT DEPENDENT NO RESPIRATORY DISTRESS. CONTINUED
--- NOTE | 2017-10-14 20:00 | NUR ---
TELERN AWAKE, ABLE TO EXPRESS HIS NEEDS THROUGH MOUTH WORDS, LEVEL 10 FOR TRACH SITE PAIN. MORPHINE 0.5 MG IVP ADMINISTERED. REPOSITIONED HEAD PART FOR COMFORT. KEPT COMFORTABLE, SR TO ST ON THE MONITOR. ISOLATION PRECAUTIONS OBSERVED FOR MRSA NARE AND VRE URINE.
--- NOTE | 2017-10-14 23:01 | NUR ---
TELERN BED BATHED. BACTROBAN BOTH NARES DONE. REPOSITIONED FOR COMFORT. CHECKED FOR RESIDUALS OBTAINED 30 CC. FEEDINGS CONTINUED.
[2017-10-15] VITALS (7 sets, daily range): BP systolic 104–172; BP diastolic 73–102
[2017-10-15] MEDS: METOCLOPRAMIDE HCL 10 MG/2 ML VIAL IV SCH ×3 (05:31→17:18)
[2017-10-15] MEDS: MORPHINE SULFATE INJ 2 MG/ML DISP.SYRIN IV PRN ×3 (05:31→21:03)
[2017-10-15] MEDS: BLOOD SUGAR DIAGNOSTIC 1 EACH STRIP IN SCH ×3 (05:54→17:15)
[2017-10-15] MEDS: FIBERSOURCE HN 1,000 ML BOTTLE GT PRN (05:57)
--- NOTE | 2017-10-15 06:00 | NUR ---
TELERN REMAINS SR ON THE MONITOR. BS 88. INCREASED FEEDING TO 40 ML/HR. NO FURTHER RESIDUALS OBTAINED. HAD 1 BM. SINGLETON OUTPUT 225. MEDICATED WITH MORPHINE 0.5MG IVP FOR BACK PAIN, BUTTOCK DRESSINGS CHANGED.
[2017-10-15 06:33] LABS: EOSINOPHILS # (AUTO) 0.7 /CMM (0.0-0.7); MEAN CORPUSCULAR HEMOGLOBIN 29 PG (26.0-33.0); MEAN CORPUSCULAR HGB CONC 33 g/dl (31.0-36.0); MEAN CORPUSCULAR VOLUME 88 fL (80-96)
[2017-10-15 06:46] LABS: CALCIUM, SERUM 8.5 mg/dL (8.5-10.1); CREATININE 0.7 mg/dL (0.6-1.3); POTASSIUM 3.7 mmol/L (3.5-5.1)
--- NOTE | 2017-10-15 07:00 | NUR ---
RN NOTES RECEIVED PT ON BED, A/Ox2, VENT / TRACH DEPENDENT , RESPIRATION EVEN AND UNLABORED, NO SOB NOTED, ON TELE SR , HR IN 90'S , FIBERSOURCE AT 40CC/HR RUNNING VIA GT , NO RESIDUAL NOTED, D5NS AT 50CC/HR RUNNING VIA R UPPER ARM PICC LINE , SITE CDI, SR UP x3, CALL LIGHT WITHIN EASY REACH, BED LOCKED AND IN LOWEST POSITION , ISOLATION PRECAUTIONS OBSERVED FOR MRSA NARE AND VRE URINE. CONTINUE TO MONITOR PT CLOSELY
--- NOTE | 2017-10-15 07:23 | NUR ---
Pt received on a mechanical vent. Pt trach is secure. Vent is plugged into a red outlet, alarms are set and audible, and BVM is at bedside. Addendum: 10/15/17 at 0725 by ARNULFO ALEX RT Amended: Links added.
[2017-10-15 08:07] LABS: BASOPHILS % (AUTO) 0.3 % (0.0-2.0); EOSINOPHILS % (AUTO) 7.4 % (0.0-6.0); HEMATOCRIT 23 % (39-51); HEMOGLOBIN 7.6 g/dL (13.5-17.5); LYMPHOCYTES # (AUTO) 1.5 /CMM (0.8-4.8); LYMPHOCYTES % (AUTO) 15.7 % (20.0-44.0); MONOCYTES # (AUTO) 0.5 /CMM (0.1-1.30); MONOCYTES % (AUTO) 4.8 % (2.0-12.0); NEUTROPHILS % (AUTO) 71.8 % (43.0-81.0); PLATELET COUNT (AUTO) 115 /CMM (150-450); RDW COEFFICIENT OF VARIATION 16.1 (11.5-15.0); RED BLOOD CELL COUNT(AUTO) 2.66 MIL/uL (4.5-6.0); WHITE BLOOD COUNT (AUTO) 9.7 K/uL (4.3-11.0)
[2017-10-15] MEDS: LACTOBACILLUS RHAMNOSUS GG 1 EACH CAP.SPRINK PO SCH ×2 (08:29→16:10)
[2017-10-15] MEDS: DOCUSATE SODIUM LIQ 100 MG/10 ML UDC GT SCH ×2 (08:29→16:07)
[2017-10-15] MEDS: ZINC SULFATE 220 MG CAPSULE PO SCH (08:29)
[2017-10-15] MEDS: ASCORBIC ACID 500 MG TABLET PO SCH (08:29)
[2017-10-15] MEDS: FAMOTIDINE/PF INJ 20 MG/2 ML VIAL IV SCH ×2 (08:29→16:09)
[2017-10-15] MEDS: MULTIVITAMINS,THERAGRAN 1 UDTAB TABLET GT SCH (08:29)
[2017-10-15] MEDS: MAGNESIUM OXIDE 400 MG TABLET GT SCH (08:32)
[2017-10-15] MEDS: MUPIROCIN OINT 2% 22 GM TUBE SCH ×2 (08:33→21:04)
[2017-10-15] MEDS: HYDROGEL DRESSING 90 GM TUBE TP SCH (08:33)
[2017-10-15] MEDS: NEOMY SULF/BACITRAC ZN/POLY 15 GM TUBE TP SCH (08:35)
[2017-10-15] MEDS: LORAZEPAM 1 MG TABLET GT PRN (08:40)
[2017-10-15 09:52] LABS: IMMUNOGLOBULIN A, SERUM 363 mg/dL (90-386); IMMUNOGLOBULIN G, SERUM 1402 mg/dL (700-1600); IMMUNOGLOBULIN M, SERUM 175 mg/dL (20-172)
[2017-10-15] MEDS ORDERED: NUTR250L48 GT (11:22)
[2017-10-15] MEDS: IV D5/ 0.9% NACL 1,000 ML IV PRN (12:43)
--- NOTE | 2017-10-15 14:00 | NUR ---
RN NOTES CALL RECEIVED FOR PT'S FAMILY THAT THEY WANT TO TALK TO ADMINISTRATION REGARDING DISCHARGE PLANING .,MR. ROBBY COULTER NOTIFIED.
--- NOTE | 2017-10-15 17:00 | NUR ---
RN NOTES ONE SEMIFORMED STOOL NOTED, COLACE HELD .
--- NOTE | 2017-10-15 18:18 | NUR ---
RN NOTES TRACH CARE AND SUCTIONING DONE , NO DISTRESS NOTED, SINGLETON DRAINING TO GRAVITY WITH YELLOW URINE, SR UP x3, CALL LIGHT WITHIN EASY REACH, WILL ENDORSE TO HOGSHEAD STRIPPER NURSE FOR OPAL .
--- NOTE | 2017-10-15 19:30 | NUR ---
PASTEURISER OPERATOR INITIAL NOTE RECEIVED REPORT FROM SATHYA FAIRCHILD. PT IN BED ON VENTILATOR TOLERATING CURRENT VENT SETTINGS. LUNG SOUNDS RHONCHI. BOWEL SOUNDS PRESENT. GT PATENT AND INTACT WITH FEEDING RUNNING, RESIDUAL IS 30CC, FEEDING CONTINUED. PULSES PRESENT. IV PATENT AND INTACT. BED IN LOW LOCKED POSITION. CALL LIGHT WITHIN REACH. WILL CONTINUE TO MONITOR.
[2017-10-16] VITALS: BP 119/88
[2017-10-16] MEDS: BLOOD SUGAR DIAGNOSTIC 1 EACH STRIP IN SCH ×4 (00:01→18:15)
[2017-10-16] MEDS: METOCLOPRAMIDE HCL 10 MG/2 ML VIAL IV SCH ×4 (00:01→18:04)
[2017-10-16] MEDS: MORPHINE SULFATE INJ 2 MG/ML DISP.SYRIN IV PRN ×3 (02:21→18:09)
[2017-10-16] MEDS: FIBERSOURCE HN 1,000 ML BOTTLE GT PRN (02:31)
[2017-10-16 04:00] VITALS: BP 121/86
[2017-10-16] MEDS: IV D5/ 0.9% NACL 1,000 ML IV PRN (06:29)
--- NOTE | 2017-10-16 07:15 | NUR ---
RN INITIAL NOTE PATIENT RECEIVED IN BED, RESTING COMFORTABLY. NO S/S OF PAIN OR DISCOMFORT. PATIENT IS NON VERBAL, MOUTHS WORDS. HAS FREDERICK ESTRELLA #8, NO S/S OF RESPIRATORY DISTRESS OR SOB. SINUS RHYTHM ON TELE MONITOR. GTUBE SITE FLUSHED, PATENT. PLACEMENT VERIFIED. TOLERATING GTF WELL. SKIN IS WARM AND DRY TO TOUCH. IV SITE FLUSHED, PATENT. SINGLETON CATHETER DRAINING TO GRAVITY. SAFETY PRECAUTIONS IMPLEMENTED. BED IN LOCKED, LOW POSITION WITH TWO SIDE RAILS UP. CALL LIGHT WITHIN EASY REACH. WILL CONTINUE TO MONITOR CLOSELY.
--- NOTE | 2017-10-16 07:39 | NUR ---
Male akosua pt received on mechanical ventilator. Pt akosua is secure. Vent is plugged into a red outlet, alarms are set and audible, and BVM is at bedside. Addendum: 10/16/17 at 0740 by ARNULFO ALEX RT Amended: Links added.
[2017-10-16 08:00] VITALS: BP 148/94
[2017-10-16 08:18] LABS: *SPE A/G RATIO 0.7 (0.7-1.7); *SPE ALBUMIN 2.4 g/dL (2.9-4.4); *SPE ALPHA-1-GLOBULIN 0.4 g/dL (0.0-0.4); *SPE ALPHA-2-GLOBULIN 0.6 g/dL (0.4-1.0); *SPE BETA GLOBULIN 0.8 g/dL (0.7-1.3); *SPE GLOBULIN, TOTAL 3.3 g/dL (2.2-3.9); *SPE M-SPIKE Not Observed g/dL (Not Observed); *SPEGAMMA GLOBULIN 1.5 g/dL (0.4-1.8)
[2017-10-16] MEDS: MULTIVITAMINS,THERAGRAN 1 UDTAB TABLET GT SCH (08:26)
[2017-10-16] MEDS: ASCORBIC ACID 500 MG TABLET PO SCH (08:26)
[2017-10-16] MEDS: ZINC SULFATE 220 MG CAPSULE PO SCH (08:26)
[2017-10-16] MEDS: DOCUSATE SODIUM LIQ 100 MG/10 ML UDC GT SCH ×2 (08:26→18:04)
[2017-10-16] MEDS: LACTOBACILLUS RHAMNOSUS GG 1 EACH CAP.SPRINK PO SCH ×2 (08:26→18:04)
[2017-10-16] MEDS: FAMOTIDINE/PF INJ 20 MG/2 ML VIAL IV SCH ×2 (08:26→18:04)
[2017-10-16] MEDS: MAGNESIUM OXIDE 400 MG TABLET GT SCH (08:27)
[2017-10-16] MEDS: NEOMY SULF/BACITRAC ZN/POLY 15 GM TUBE TP SCH (08:28)
[2017-10-16] MEDS: MUPIROCIN OINT 2% 22 GM TUBE SCH ×2 (08:28→21:20)
[2017-10-16] MEDS: HYDROGEL DRESSING 90 GM TUBE TP SCH (08:29)
[2017-10-16] MEDS: PROSOURCE / PROSTAT (PYXIS) 30 ML UDC GT SCH (08:29)
[2017-10-16 08:48] LABS: EOSINOPHILS # (AUTO) 1.2 /CMM (0.0-0.7); EOSINOPHILS % (AUTO) 11.2 % (0.0-6.0); HEMATOCRIT 23 % (39-51); HEMOGLOBIN 7.5 g/dL (13.5-17.5); LYMPHOCYTES # (AUTO) 1.1 /CMM (0.8-4.8); LYMPHOCYTES % (AUTO) 10.5 % (20.0-44.0); MEAN CORPUSCULAR HEMOGLOBIN 29 PG (26.0-33.0); MEAN CORPUSCULAR HGB CONC 32 g/dl (31.0-36.0); MEAN CORPUSCULAR VOLUME 89 fL (80-96); MONOCYTES # (AUTO) 0.5 /CMM (0.1-1.30); NEUTROPHILS # (AUTO) 7.8 /CMM (1.8-8.9); NEUTROPHILS % (AUTO) 73.3 % (43.0-81.0); PLATELET COUNT (AUTO) 126 /CMM (150-450); RDW COEFFICIENT OF VARIATION 15.9 (11.5-15.0); RED BLOOD CELL COUNT(AUTO) 2.62 MIL/uL (4.5-6.0); WHITE BLOOD COUNT (AUTO) 10.7 K/uL (4.3-11.0)
[2017-10-16] MEDS: LORAZEPAM 1 MG TABLET GT PRN (09:02)
[2017-10-16 09:26] LABS: CALCIUM, SERUM 8.2 mg/dL (8.5-10.1); CREATININE 0.6 mg/dL (0.6-1.3); POTASSIUM 3.8 mmol/L (3.5-5.1)
[2017-10-16 12:00] VITALS: BP 156/93
[2017-10-16 16:00] VITALS: BP 142/92
--- NOTE | 2017-10-16 19:35 | NUR ---
RN NOTES RECEIVED PT AWAKE ON BED NO ACUTER GENEVIEVE DISTRESS, WITH TRACH SHILEY 8 CONNECTED TO VENT SETTING AC 14 TV400 FIO2 30% NO PEEP. SATING 99% AOX2 ABLE TO MOUTH WORDS. ON TELE MONITOR SR HR98 DENIES PAIN AT THIS TIME. WITH GTF FIBERSOURCE @ 40 CC/HR INTACT, PATENCY CHECKED NO RESIDUAL. IV SITE ON D5 NS @ 50 CC/HR INTACT AND PATENT. ON JENNIE PICC LINE WITH GOOD BLOOD RETURN. F/C DRAINED WITH YELLOW COLOR URINE. VIA GRAVITY. REPOSITIONED PT PT COMFORTABLE. OFF LOADED EXT . WITH PILLOWS. KEPT PT CLEAN AND COMFORTABLE IN BED. WILL CONTINUE TO MONITOR.
[2017-10-16 20:00] VITALS: BP 142/92
[2017-10-16] MEDS: oxyCODONE IR immediate release 5 MG CAPSULE PO PRN (21:23)
[2017-10-17] VITALS (7 sets, daily range): BP systolic 122–175; BP diastolic 78–104
[2017-10-17] MEDS: ZOLPIDEM TARTRATE 5 MG TABLET GT PRN (00:33)
[2017-10-17] MEDS: BLOOD SUGAR DIAGNOSTIC 1 EACH STRIP IN SCH ×4 (00:33→17:10)
[2017-10-17] MEDS: METOCLOPRAMIDE HCL 10 MG/2 ML VIAL IV SCH ×4 (00:34→17:10)
[2017-10-17] MEDS: IV D5/ 0.9% NACL 1,000 ML IV PRN (03:38)
[2017-10-17] MEDS: FIBERSOURCE HN 1,000 ML BOTTLE GT PRN (03:39)
[2017-10-17] MEDS: MORPHINE SULFATE INJ 2 MG/ML DISP.SYRIN IV PRN ×3 (03:39→17:13)
--- NOTE | 2017-10-17 07:29 | NUR ---
RN NOTES PT ASLEEP WELL ON BED. ALL NEEDS ATTENDED. TRACH AND VENT TOLERATED WELL. AFEBRILE. VS STABLE./ ALL DUE MEDICINE TOLERATED WELL VIA GT. KEPT PT CLEAN AND DRY/ DRESSING CHANGE. WILL ENDORSED CONTINUITY OF CARE TO AM NURSE.
--- NOTE | 2017-10-17 07:49 | NUR ---
OUTDOOR ADVERTISING LEASING AGENT, INITIAL NOTES,AM RECEIVED REPORT FROM NIGHT NURSE. PT ALERT, FOLLOWS COMMANDS. ON VENT SETTINGS ORDERED BY MD, NO ACUTE RESPIRATORY DISTRESS NOTED. PT SINUS ON TELE.SINGLETON CATH IN PLACE, DRAINING URINE. FEEDING INFUSING AT 50 ML/HR,TOLERATING WELL. PICC LINE PATENT AND INTACT, NO S/S OF INFECTION OR INFILTRATION NOTED. IV FLUIDS INFUSING ORDERED. POSSIBLE D/C TODAY, WILL FOLLOW UP. ALL NEEDS MET, SAFETY MEASURES TAKEN, BED IN LOW POSITION, SIDE RAILS UP, CALL LIGHT WITHIN REACH.
[2017-10-17] MEDS: FAMOTIDINE/PF INJ 20 MG/2 ML VIAL IV SCH ×2 (08:27→17:10)
[2017-10-17] MEDS: LACTOBACILLUS RHAMNOSUS GG 1 EACH CAP.SPRINK PO SCH ×2 (08:27→17:10)
[2017-10-17] MEDS: DOCUSATE SODIUM LIQ 100 MG/10 ML UDC GT SCH ×2 (08:27→17:10)
[2017-10-17] MEDS: ASCORBIC ACID 500 MG TABLET PO SCH (08:27)
[2017-10-17] MEDS: ZINC SULFATE 220 MG CAPSULE PO SCH (08:27)
[2017-10-17] MEDS: MULTIVITAMINS,THERAGRAN 1 UDTAB TABLET GT SCH (08:27)
[2017-10-17] MEDS: MAGNESIUM OXIDE 400 MG TABLET GT SCH (08:27)
[2017-10-17] MEDS: PROSOURCE / PROSTAT (PYXIS) 30 ML UDC GT SCH (08:29)
[2017-10-17] MEDS: MUPIROCIN OINT 2% 22 GM TUBE SCH (08:30)
[2017-10-17] MEDS: HYDROGEL DRESSING 90 GM TUBE TP SCH (08:30)
[2017-10-17] MEDS: NEOMY SULF/BACITRAC ZN/POLY 15 GM TUBE TP SCH (08:32)
--- NOTE | 2017-10-17 18:43 | NUR ---
ICU/RN: RECEIVED CALL FROM CASE MANAGEMENT, PLACEMENT FOUND. ALL EXIT CARE COMPLETED, WILL ENDORSE TO TAKE D/C PHOTOS. REPORT ENDORSED TO ACCEPTING FACILITY.
--- NOTE | 2017-10-17 19:34 | NUR ---
ICU/RN: PT HR 129-131, PRN ATZOIE GIVEN, PT ANXIOUS. ENDORSED TO NIGHT NURSE TO ASSESS. Addendum: 10/17/17 at 1937 by PARRISH DELANEY RN INCORRECT PT, PLEASE DISREGARD.
--- NOTE | 2017-10-17 19:37 | NUR ---
ICU/RN ENDING NOTES,AM REPORT ENDORSED TO NIGHT NURSE FOR CONTINUATION OF CARE. PT WILL BE PICKED UP AT 2130, ALL EXIT CARE DONE, ENDORSED TO NIGHT NURSE TO DO MRSA SWAB AND TAKE D/C PHOTOS. ALL NEEDS MET, SAFETY MEASURES TAKEN, BED IN LOW POSITION, SIDE RAILS. WILL CONTINUE CARE.
[2017-10-17] MEDS: oxyCODONE IR immediate release 5 MG CAPSULE PO PRN (20:28)
--- NOTE | 2017-10-17 20:38 | NUR ---
SPECIAL NEEDS BABYSITTER NOTE RECEIVED PATIENT IN BED, ALERT, ORIENTED X2, ABLE TO MOUTH WORDS, NO ACUTE RESPIRATORY DISTRESS, TRACH AND VENT SETTING TOLERATED WELL, GT SITE INTACT, PICC LINE SITE INTACT, NO S/S OF INFECTION NOTED,NO RESIDUAL NOTED, LAST PAIN MEDICINE GIVEN VIA G-TUBE PRIOR TO DC, LAST BP 140/96, HERAT RATE 110, WOUND CARE PROVIDED PER MD ORDER, PHOTOS WERE TAKEN , DC TO [facility] VIA AMBULANCE, ALL DISCHARGE DOCUMENTS REVIEWED WITH THE PATIENT, DISCUSSED REPORT WITH THE AMBULANCE, PATIENT LEFT IN THE STABLE CONDITION
== END 2017-10-17 20:40 | DRG 870 ==
LOC: ER 19:59 → TELE 22:31 → ICU 09-22 00:40 → MED 09-24 11:23 → TELE 09-24 19:00 → ICU 10-09 14:10 → TELE-TD 10-12 12:20 → TELE1 10-13 09:01
PROVIDERS: ADMIT Nurse Practitioner Acute Care; ATTEND Nurse Practitioner Acute Care
PROC: 5A1955Z Respiratory Ventilation, Greater than 96 Consecutive Hours (ICD-10-PCS; principal; 2017-09-21)
PROC: 0DB68ZX Excision of Stomach, Via Natural or Artificial Opening Endoscopic, Diagnostic (ICD-10-PCS; 2017-09-25)
PROC: 0DJD8ZZ Inspection of Lower Intestinal Tract, Via Natural or Artificial Opening Endoscopic (ICD-10-PCS; 2017-09-26)
PROC: 30233N1 Transfusion of Nonautologous Red Blood Cells into Peripheral Vein, Percutaneous Approach (ICD-10-PCS; 2017-10-06)
DX: A41.9 Sepsis, unspecified organism (principal); I21.A1 Myocardial infarction type 2; N17.0 Acute kidney failure with tubular necrosis; D65 Disseminated intravascular coagulation [defibrination syndrome]; R65.21 Severe sepsis with septic shock; E43 Unspecified severe protein-calorie malnutrition; D61.818 Other pancytopenia; J18.9 Pneumonia, unspecified organism; R53.2 Functional quadriplegia; Z99.11 Dependence on respirator [ventilator] status; J90 Pleural effusion, not elsewhere classified; J96.11 Chronic respiratory failure with hypoxia; E87.2 Acidosis; N39.0 Urinary tract infection, site not specified; E87.1 Hypo-osmolality and hyponatremia; Z68.1 Body mass index [BMI] 19.9 or less, adult; J98.11 Atelectasis; K55.9 Vascular disorder of intestine, unspecified; K56.7 Ileus, unspecified; Z93.1 Gastrostomy status; Z93.0 Tracheostomy status; B96.4 Proteus (mirabilis) (morganii) as the cause of diseases classified elsewhere; D63.8 Anemia in other chronic diseases classified elsewhere; E87.5 Hyperkalemia; E86.0 Dehydration; K29.70 Gastritis, unspecified, without bleeding; I12.9 Hypertensive chronic kidney disease with stage 1 through stage 4 chronic kidney disease, or unspecified chronic kidney disease; N18.9 Chronic kidney disease, unspecified; Z88.0 Allergy status to penicillin; Y24.8XXS Other firearm discharge, undetermined intent, sequela; K64.8 Other hemorrhoids; R13.10 Dysphagia, unspecified; W34.00XS Accidental discharge from unspecified firearms or gun, sequela; Z16.21 Resistance to vancomycin; Z95.0 Presence of cardiac pacemaker; D50.0 Iron deficiency anemia secondary to blood loss (chronic); E88.09 Other disorders of plasma-protein metabolism, not elsewhere classified; R74.0 Nonspecific elevation of levels of transaminase and lactic acid dehydrogenase [LDH]; K59.00 Constipation, unspecified; Z22.322 Carrier or suspected carrier of Methicillin resistant Staphylococcus aureus; R00.1 Bradycardia, unspecified; B95.2 Enterococcus as the cause of diseases classified elsewhere; K66.8 Other specified disorders of peritoneum; K74.60 Unspecified cirrhosis of liver; D50.9 Iron deficiency anemia, unspecified; Z79.899 Other long term (current) drug therapy
CPT/HCPCS: 31720; 36415; 36600; 71010-TC; 74000-TC; 80048-TC; 80053-TC; 80061-TC; 80076-TC; 80202-TC; 81000-TC; 82248-TC; 82272-TC; 82570-TC; 82728-TC; 82746; 82784; 82803-TC; 82962-TC; 83540-TC; 83605-TC; 83735-TC; 84100-TC; 84155; 84165; 84300-TC; 84484-TC; 85025-TC; 85027-TC; 85396; 85730-TC; 86022; 86334; 86850-TC; 86880-TC; 86921-TC; 87040-TC; 87081-TC; 87086-TC; 87186-TC; 88305-TC; 88313-TC; 88342; 93307-TC; 94003-TC; 94760-TC; 94762-TC; 99082-TC; A4216; A4217; A4606; A4623; A6248; A6253; A6402; A6403; A7526; J0360; J0610; J0692; J0696; J0713; J1265; J1815; J1940; J2020; J2185; J2270; J2370; J2405; J2704; J2765; J2916; J3370; J3475; J3480; J3490; J7030; J7040; J7042; J7050; J7060; J8597; P9016-BL; Q9963; Z7610